=== PATIENT | male | born 1935 | race Caucasian/White ===

== ENCOUNTER 2017-01-11 12:37 | Emergency (ER) | payer MEDICARE, BC ==
[2017-01-11 13:20] VITALS: BP 154/68
[2017-01-11] MEDS ORDERED: HYDROcodone/ACETAMIN 5-325 MG* 1 TAB PO ONE (14:04)
--- NOTE | 2017-01-11 14:19 | UC ---
Abdominal Pain Male HPI - HPI Summary HPI Summary: This is an 81 yo male with h/o CAD and prior kidney stones who presents with complaints of R sided back pain and abdominal pain with hematuria. Denies associated fever. Nauseated with poor oral intake, no vomiting. No diarrhea, some constipation. He reports this pain is different somehow from his prior kidney stones. He is seen by Dr Marquez chronically. He was seen last week and had noted hematuria on UA. He reports that he had an XR and US in the office that was reportedly normal at that time. He did have some pain at the time of evaluation, but that has increased over the last week. He was unable to sleep last night despite use of oxycodone before bed last night. - History of Current Complaint Chief Complaint: UCGU Stated Complaint: LOWER BACK PAIN,BLOOD IN URINE - Allergies/Home Medications Allergies/Adverse Reactions: Allergies Allergy/AdvReac Type Severity Reaction Status Date / Time Bee Venom Allergy Severe hypotension Verified 10/21/16 14:12 Lidocaine Allergy Severe Increased Verified 10/21/16 14:12 pain PMH/Surg Hx/FS Hx/Imm Hx Cardiovascular History Of: Reports: Cardiac Disorders - MO , Hypertension - Surgical History Surgical History: Yes Surgery Procedure, Year, and Place: Angioplasty , knee surgery - Family History Known Family History: Positive: Hypertension - Social History Alcohol Use: None Substance Use Type: None Smoking Status (MU): Light Every Day Tobacco Smoker Review of Systems Constitutional: Fatigue Skin: Negative Eyes: Negative ENT: Negative Respiratory: Negative Cardiovascular: Negative Gastrointestinal: Abdominal Pain Genitourinary: Hematuria Motor: Negative Neurovascular: Negative Musculoskeletal: Negative Neurological: Negative Psychological: Negative All Other Systems Reviewed And Are Negative: Yes Physical Exam Triage Information Reviewed: Yes Completion Of Physical Exam Limited Due To: Patient age Appearance: Well-Appearing Vital Signs: Initial Vital Signs Temp 97.7 F 01/11/17 13:11 Pulse 78 01/11/17 13:11 Resp 18 01/11/17 13:11 BP 154/68 01/11/17 13:11 Pulse Ox 97 01/11/17 13:11 Vital Signs Reviewed: Yes Respiratory: Positive: Lungs clear, Normal breath sounds. Negative: Crackles, Rhonchi, Wheezing Cardiovascular: Positive: RRR, No Murmur Abdomen Description: Positive: Soft, CVA Tenderness (R), Other: - TTP R side of abdomen Psychological Exam: Normal Skin Exam: Normal Diagnostics - Laboratory Diagnostic Studies Completed/Ordered: UA - +blood, protein Abd Pain Male Course/Dx - Course Course Of Treatment: This is an 81 yo male with h/o CAD and HTN who presents with back pain, abdominal pain and hematuria. Suspect R ureteral stone. No evidence of associated infection. Patient reports pain is uncontrolled with oxycodone and has not been eating or drinking for several days. For these reasons, recommend transfer to the ER for CT of the abdomen and labs. Patient was driven by his daughter and is stable for transfer by private car - Differential Dx/Clinical Impression Differential Diagnosis/HQI/PQRI: Constipation, Diverticulitis, Ureteral Stone, Urinary Tract Infection Provider Diagnoses: 1. Abdominal pain. 2. Hematuria. 3. Suspected R ureteral stone - Physician Notification/Consults Discussed Patient Care With: Bre Fernandez PA-C Time Discussed With Above Provider: 14:15 - discussed transfer to ED Instructed by Provider To: Will See In ED Discharge - Discharge Plan Condition: Stable Disposition: OTHER Discharge Disposition Comment: Emergency dept Referrals: Rik Henriquez MD [Primary Care Provider] - Additional Instructions: PLEASE PROCEED TO THE EMERGENCY DEPARTMENT FOR FURTHER EVALUATION
== END 2017-01-11 14:20 | disposition short-term general hospital (02) ==
LOC: UCEAST 12:37
DX: R10.9 Unspecified abdominal pain (principal); R31.9 Hematuria, unspecified; Z87.442 Personal history of urinary calculi; I25.2 Old myocardial infarction; I10 Essential (primary) hypertension; F17.210 Nicotine dependence, cigarettes, uncomplicated; Z88.4 Allergy status to anesthetic agent
CPT/HCPCS: 81003; 99212; G0463

== ENCOUNTER 2017-01-11 14:35 | Emergency (ER) | payer MEDICARE, BC ==
[2017-01-11] MEDS ORDERED: NS 0.9% 1000 ML* 1,000 ML IV ONE (15:04)
--- NOTE | 2017-01-11 15:20 | ED ---
Abdominal Pain/Male - HPI Summary HPI Summary: 81M presents with abdominal and back pain for a day. He states that last night after eating her started to develop lower quadrant pain. He also states that he has back pain that goes across his lower back. He states that he has had this pain recurrently over the past week. He states that he has also had hematuria for the past week and is going to have a scope of his bladder on Friday by dr jerome. He has a history of kidney stones but states the pain is different from kidney stone pain. He admits to constipation. He also admits to occasionally nausea but denies any vomiting or diarrhea or fever. He denies any chest pain or SOB. He states that he had heart burn for a couple mins this morning that resolved. He was seen at urgent care and transferred here for a further work up. - History of Current Complaint Chief Complaint: EDAbdPain Stated Complaint: BLOOD IN URINE / FLANK PAIN Time Seen by Provider: 01/11/17 15:03 Pain Intensity: 5 - Allergies/Home Medications Allergies/Adverse Reactions: Allergies Allergy/AdvReac Type Severity Reaction Status Date / Time Bee Venom Allergy Severe hypotension Verified 01/11/17 14:40 Lidocaine Allergy Severe Increased Verified 01/11/17 14:40 pain PMH/Surg Hx/FS Hx/Imm Hx Cardiovascular History: Reports: Hx Hypertension - Surgical History Surgery Procedure, Year, and Place: Angioplasty , knee surgery Infectious Disease History: Yes Infectious Disease History: Denies: Traveled Outside the [place] in Last 30 Days - Family History Known Family History: Positive: Hypertension - Social History Alcohol Use: None Substance Use Type: Reports: None Smoking Status (MU): Light Every Day Tobacco Smoker Review of Systems Negative: Fever Negative: Chest Pain Negative: Shortness Of Breath Positive: Abdominal Pain, Nausea. Negative: Vomiting, Diarrhea Positive: flank pain, hematuria. Negative: dysuria All Other Systems Reviewed And Are Negative: Yes Physical Exam Triage Information Reviewed: Yes Vital Signs On Initial Exam: Initial Vitals Temp Pulse Resp BP Pulse Ox 97.7 F 69 16 138/59 97 01/11/17 14:40 01/11/17 14:40 01/11/17 14:40 01/11/17 14:40 01/11/17 14:40 Vital Signs Reviewed: Yes Appearance: Positive: Well-Appearing Skin: Positive: Warm, Dry Head/Face: Positive: Normal Head/Face Inspection Eyes: Positive: Normal, Conjunctiva Clear ENT: Positive: Normal ENT inspection, Pharynx normal, TMs normal Respiratory/Lung Sounds: Positive: Clear to Auscultation, Breath Sounds Present Cardiovascular: Positive: Normal, RRR Abdomen Description: Positive: Soft, Other: - mild tenderness in RLQ and LLQ, no rebound. Negative: CVA Tenderness (R), CVA Tenderness (L), Guarding Bowel Sounds: Positive: Present - Jeffrey Coma Scale Coma Scale Total: 15 Diagnostics - Vital Signs Vital Signs Temp Pulse Resp BP Pulse Ox 01/11/17 15:06 98.7 F 01/11/17 14:40 97.7 F 69 16 138/59 97 - Laboratory Result Diagrams: 01/11/17 15:20 01/11/17 15:20 Lab Statement: Any lab studies that have been ordered have been reviewed, and results considered in the medical decision making process. - CT ab CT Interpretation: Positive (See Comments) - IMPRESSION: 1. Cirrhotic liver morphology. Top size increased over the 2014 exam. 2. Distended gallbladder with suggestion of mild mural thickening. No conspicuous stones. Correlate with clinical assessment and consider RIGHT upper quadrant ultrasound for further assessment if deemed appropriate. 3. Small volume of ascites. 4. Negative for obstructive uropathy. Nonobstructing LEFT renal stones. 5. Diverticulosis of the colon without findings of diverticulitis. 6. 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 CT Interpretation Completed By: Radiologist - Ultrasound No standard instances Ultrasound Interpretation: Positive (See Comments) - IMPRESSION: 1. Cirrhotic liver morphology. No focal hepatic lesions visualized. 2. Gallbladder stones and sludge. Gallbladder wall thickening is nonspecific in setting of cirrhosis. Negative for pericholecystic fluid or sonographic Llanos's sign to strongly favor acute cholecystitis. Correlate with clinical assessment. Ultrasound Interpretation Completed By: Radiologist Re-Evaluation - Re-Evaluation First Eval Re-Evaluation Time: 16:00 Change: Improved Comment: patient with minimal pain currently Abdominal Pain Fem Course/Dx - Course Course Of Treatment: 81M presents with lower quadrant abdominal pain and back pain. sent from urgent care for possible kidney stone evalution. admits to constipation but denies any diarrhea, n/v. on exam no CVA tenderness, no rebound , tender in right and left lower quadrants. u/a at [facility] no UTI only hematuria which is going to be following up with dr jerome on friday for. did CT which showed possible gallbladder thickening. got u/s and does not appear to have any gallstones or acute cholecystitis. on exam neg llanos. went over results with patient and patient family. will give pain medication as pain does not appear to be cause by anything surgical. told to follow up with primary. patient understands and agrees with plan - Diagnoses Differential Diagnosis/HQI/PQRI: Constipation, Gall Bladder Disease, Renal Colic , Urinary Tract Infection Provider Diagnoses: Abdominal pain Discharge - Discharge Plan Condition: Good Disposition: HOME Prescriptions: HYDROcodone/ACETAMIN 5-325 MG* [[place] 5-325 TAB*] 1 tab PO Q6H PRN #12 tab MDD 4 PRN Reason: Pain Patient Education Materials: Abdominal Pain (ED) Referrals: Rik Henriquez MD [Primary Care Provider] - Additional Instructions: Follow up with primary within 3 days Keep appointment with urology on Friday Take Tylenol or ibuprofen every 6 hours, use narcotic for break through pain, inc fiber intake with narcotic use Return to ED if develop any new or worsening symptoms
[2017-01-11 15:36] LABS: Hematocrit 42 % (42-52); Hemoglobin 13.5 g/dl (14.0-18.0); Mean Corpuscular HGB Conc 32 g/dl (31-36); Mean Corpuscular Hemoglobin 28 pg (27-31); Mean Corpuscular Volume 88 fL (80-94); Mean Platelet Volume 9 um3 (7.4-10.4); Red Blood Count 4.76 10^6/ul (4.0-5.4); Red Cell Distribution Width 17 % (10.5-15); White Blood Count 12.9 10^3/ul (3.5-10.8)
[2017-01-11 15:52] LABS: Albumin 3.7 g/dL (3.2-5.2); BUN/Creatinine Ratio 17.9 (8-20); Calcium 9.3 mg/dL (8.6-10.3); EGFR African American 122.2 (>60); EGFR Non-African American 95.1 (>60); Globulin 3.5 g/dL (2-4); Potassium 4.1 mmol/L (3.5-5.0); Total Bilirubin 2.2 mg/dL (0.2-1.0); Total Protein 7.2 g/dL (6.4-8.9)
[2017-01-11] MEDS ORDERED: Ketorolac INJ* 30 MG/ML 1 ML VIAL IV PUSH ONE (16:33)
--- NOTE | 2017-01-11 16:55 | RAD ---
INDICATION: RIGHT lower quadrant and back pain. Hematuria. COMPARISON: May 03, 2014 CT. TECHNIQUE: Multidetector CT images were obtained from the lung bases to the ischial tuberosities. Evaluation of the viscera is limited without IV contrast. Multiplanar reformation. REPORT: Minimal dependent basilar atelectasis. Coronary artery calcifications. Nodular surface contour of the liver. Small focus of parenchymal calcification at the RIGHT posterior hepatic segment. No decubitus hepatic mass within limits of noncontrast CT. Distended gallbladder with suggestion of gallbladder wall thickening. Negative for biliary dilatation. Moderately atrophic pancreas without suspicious finding. Top normal size spleen. Negative for CT abnormality of the upper GI, small bowel, or infra cecal appendix. Mild colonic diverticulosis without findings of diverticulitis. Small volume of perihepatic and pelvic ascites. Negative for free air or significant hernias. Normal size RIGHT adrenal gland with linear calcification. Unremarkable LEFT adrenal glands. Arterial calcification at the RIGHT kidney. No compelling RIGHT kidney calyceal stones or hydronephrosis. Unremarkable RIGHT ureter. 0.7 cm LEFT midpole and 0.7 cm LEFT lower pole calyceal stones. Negative for LEFT hydronephrosis. 4 cm parapelvic cyst mid pole LEFT kidney. Smaller cortical cysts of the LEFT kidney. Unremarkable LEFT ureter. Unremarkable partially distended urinary bladder. Prominent prostate. Symmetric seminal vesicles. Upper normal 0.9 cm short axis celiac axis lymph node without change. Similar unchanged lymph nodes at the nandini hepatis. Negative for lymphadenopathy. Atherosclerotic plaque of normal diameter abdominal aorta. 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 Large burden of calcific plaque at the bilateral renal artery origins. Negative for suspicious focal osseous lesions. Diffuse degenerative arthropathy of the spine with chronic multilevel vertebral body ankylosis at the lower thoracic spine. IMPRESSION: 1. Cirrhotic liver morphology. Top size increased over the 2014 exam. 2. Distended gallbladder with suggestion of mild mural thickening. No conspicuous stones. Correlate with clinical assessment and consider RIGHT upper quadrant ultrasound for further assessment if deemed appropriate. 3. Small volume of ascites. 4. Negative for obstructive uropathy. Nonobstructing LEFT renal stones. 5. Diverticulosis of the colon without findings of diverticulitis. 6. 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
--- NOTE | 2017-01-11 18:42 | RAD ---
Indication: Distended thick-walled gallbladder on CT. Comparison: CT of the same date. Technique: RIGHT upper quadrant ultrasound. Report: Appropriate direction flow documented in the portal and hepatic veins.13.5 cm cephalocaudal liver demonstrates a nodular surface contour and course heterogeneous echogenicity echotexture. No focal hepatic lesions or biliary dilatation. 5.6 mm common bile duct. Distended gallbladder is remarkable for dependent stones and sludge. 4.1 mm gallbladder wall. No pericholecystic fluid visualized. Negative for sonographic Llanos's sign. The pancreatic tail is partially obscured due to bowel gas with the visualized pancreas unremarkable. The pancreatic duct measures 1.5 mm within normal range. No ascites visualized. Unremarkable 10.4 x 4.5 x 4.5 cm RIGHT kidney. IMPRESSION: 1. Cirrhotic liver morphology. No focal hepatic lesions visualized. 2. Gallbladder stones and sludge. Gallbladder wall thickening is nonspecific in setting of cirrhosis. Negative for pericholecystic fluid or sonographic Llanos's sign to strongly favor acute cholecystitis. Correlate with clinical assessment.
[2017-01-11] MEDS ORDERED: HYDROcodone/ACETAMIN 5-325 MG* 1 TAB PO ONE (19:12)
[2017-01-11 20:19] VITALS: BP 129/61
== END 2017-01-11 20:16 | disposition home or self-care (01) ==
LOC: ED 14:35
DX: R10.31 Right lower quadrant pain (principal); I10 Essential (primary) hypertension; K57.90 Diverticulosis of intestine, part unspecified, without perforation or abscess without bleeding; R31.9 Hematuria, unspecified; Z87.442 Personal history of urinary calculi; F17.210 Nicotine dependence, cigarettes, uncomplicated; Z88.4 Allergy status to anesthetic agent
CPT/HCPCS: 36415; 74176; 76705; 80053; 83690; 85025; 86141; 96360; 96374; 99283; J1885

== ENCOUNTER 2017-01-16 10:32 | Inpatient (IN) | payer MEDICARE, BC ==
[2017-01-16] MEDS ORDERED: NS 0.9% 1000 ML* 2,000 ML IV ONE (11:59)
[2017-01-16] MEDS ORDERED: Ondansetron INJ* 2 MG/ML VIAL IV ONE (11:59)
[2017-01-16] MEDS ORDERED: Morphine INJ* 4 MG/ML 1 ML SYRINGE IV ONE (11:59)
--- NOTE | 2017-01-16 12:29 | RAD ---
INDICATION: Pneumonia COMPARISON: None TECHNIQUE: AP seated and lateral views were obtained. FINDINGS: Bones/Soft Tissues: There are no acute bony findings. Cardiomediastinal: The cardiomediastinal silhouette is normal. Lungs: There are no infiltrates. Pleura: There are no pleural effusions. Other: None IMPRESSION: NO ACTIVE DISEASE.
[2017-01-16 12:43] LABS: Hematocrit 39 % (42-52); Hemoglobin 12.9 g/dl (14.0-18.0); Mean Corpuscular HGB Conc 33 g/dl (31-36); Mean Corpuscular Hemoglobin 29 pg (27-31); Mean Corpuscular Volume 87 fL (80-94); Mean Platelet Volume 11 um3 (7.4-10.4); Red Blood Count 4.52 10^6/ul (4.0-5.4); Red Cell Distribution Width 17 % (10.5-15); White Blood Count 10.3 10^3/ul (3.5-10.8)
[2017-01-16 12:55] LABS: Albumin 2.9 g/dL (3.2-5.2); C Reactive Protein 293.7 mg/L (< 5.00); EGFR African American 44.3 (>60); EGFR Non-African American 34.4 (>60); Globulin 3.6 g/dL (2-4); Magnesium 2.5 mg/dL (1.9-2.7); Potassium 3.6 mmol/L (3.5-5.0); Total Bilirubin 2.7 mg/dL (0.2-1.0); Total Protein 6.5 g/dL (6.4-8.9)
[2017-01-16 13:03] LABS: Troponin I 0.52 ng/mL (<0.04)
[2017-01-16] MEDS ORDERED: Acetaminophen TAB* 325 MG PO PRN (13:36)
[2017-01-16] MEDS ORDERED: Ondansetron INJ* 2 MG/ML VIAL IV PRN (13:36)
[2017-01-16] MEDS ORDERED: Iodixanol* (CONTRAST) 320 MG/ML 100 ML SDV IV ONE (14:04)
[2017-01-16] MEDS ORDERED: NS 0.9% 1000 ML* 1,000 ML IV SCH (14:15)
[2017-01-16] MEDS ORDERED: NS 0.9% 1000 ML* 1,000 ML IV ONE (14:56)
--- NOTE | 2017-01-16 14:57 | RAD ---
INDICATION: Right-sided abdominal pain and distention. COMPARISON: Comparison is made with a prior CT of the abdomen and pelvis from January 11, 2017 and a prior right upper quadrant ultrasound from January 11, 2017. TECHNIQUE: A CT scan of the abdomen and pelvis was performed with intravenous and oral contrast following intravenous injection of 82 ml of Visipaque 320 nonionic contrast. Contiguous axial sections were obtained from the lung bases through the symphysis pubis. Images were reconstructed in the coronal and sagittal planes. FINDINGS: There is mild dependent atelectasis in the right lower lobe. No pleural effusion is present. The liver is heterogeneous in density with a nodular contour. There is volume loss in the posterior segment of the right hepatic lobe. These findings are consistent with cirrhosis. No significant focal abnormality is appreciated. There is a filling defect in the right branch of the main portal vein suspicious for a thrombus. The gallbladder is distended. The gallbladder wall is thickened suggesting the possibility of acute cholecystitis. Recommend a right upper quadrant ultrasound for further evaluation. No intra or extra hepatic ductal distention is seen. The spleen is moderately enlarged and unchanged from the prior exam. The pancreas appears atrophic. The right adrenal gland is small with coarse calcification possibly from prior hemorrhage. The left adrenal gland appears to be within normal limits. The kidneys are slightly small in size. There are several left renal cysts present measuring up to 4.1 cm in size. No hydronephrosis is seen. There are several calculi in the mid and lower portion of the left kidney measuring up to 1.0 cm in size. There is delayed excretion of contrast consistent with renal insufficiency. The prostate gland is enlarged measuring 6.0 cm in transverse dimension. The abdominal aorta is mildly ectatic with moderate calcific and soft plaque present. No significant enlarged retroperitoneal lymph nodes are seen. There are mildly prominent lymph nodes in the right cardiophrenic angle measuring up to 0.9 cm in size which are unchanged. The stomach, small and large bowel appear nondistended. The appendix is not well visualized. There is no evidence for diverticulitis or colitis. No free intraperitoneal air is seen. There is a small to moderate amount of free intraperitoneal fluid present within the abdomen and pelvis. No significant focal osseous abnormality is seen. The results of this examination were discussed with the referring clinician. IMPRESSION: 1. DISTENDED GALLBLADDER WITH THICKENED WALL SUGGESTING THE POSSIBILITY OF ACUTE CHOLECYSTITIS. RECOMMEND A RIGHT UPPER QUADRANT ULTRASOUND. 2. FINDINGS CONSISTENT WITH CIRRHOSIS. IN ADDITION THERE IS A FILLING DEFECT IN THE RIGHT PORTAL VEIN BRANCH SUSPICIOUS FOR THROMBUS. 3. MODERATE SPLENOMEGALY. 4. ASCITES. 5. NONOBSTRUCTING LEFT RENAL CALCULI AND FINDINGS SUGGESTIVE OF RENAL INSUFFICIENCY. 6. PROSTATIC HYPERTROPHY.
[2017-01-16] MEDS ORDERED: Piperac/Tazob 3.375 gm in NS* 3.375 GM/100 ML BAG IVPB ONE (15:00)
--- NOTE | 2017-01-16 15:07 | ED ---
Adis Mariee Billy, scribed for Eugene Robles MD on 01/16/17 at 1125 . Abdominal Pain/Male - HPI Summary HPI Summary: Patient is an 81 year-old male coming to [facility] with constant, progressive, diffuse abdominal pain starting approximately 2 weeks ago. The pain is worst on the RUQ and radiates to the LUQ and to the back. He reports feeling bloated and decreased appetite. He also reports diarrhea but denies any vomiting. He has tea -colored urine. He states, however, that his diarrhea appeared black 5 days ago. He was seen in the ED on 01/11/17 for similar symptoms; prior records reviewed. He has been taking NSAIDs for his pain with little improvement. He has been applying heating pads with mild improvement. Nothing makes his symptoms any worse. Denies taking any bloodthinners other than ASA daily. - History of Current Complaint Chief Complaint: EDAbdPain Stated Complaint: ABD PAIN Time Seen by Provider: 01/16/17 11:13 Hx Obtained From: Patient Onset/Duration: Gradual Onset, Lasting Weeks, Still Present Timing: Constant Severity Initially: Moderate Severity Currently: Moderate Location: Diffuse Radiates: Yes Radiates to: Back Aggravating Factor(s): Nothing Alleviating Factor(s): Other: - heating pads Associated Signs And Symptoms: Positive: Blood in Stool, Urinary Symptoms - tea- colored urine, Decreased Appetite, Diarrhea. Negative: Vomiting - Allergies/Home Medications Allergies/Adverse Reactions: Allergies Allergy/AdvReac Type Severity Reaction Status Date / Time Bee Venom Allergy Severe hypotension Verified 01/11/17 14:40 Lidocaine Allergy Severe Increased Verified 01/11/17 14:40 pain Home Medications: Home Medications Nitroglycerin TAB 0.4 MG* 0.4 mg SL Q5M PRN 01/16/17 [History Confirmed 01/16/17 ] Simvastatin TAB(NF) [Zocor(NF)] 10 mg PO QPM 01/16/17 [History Confirmed ] PMH/Surg Hx/FS Hx/Imm Hx Cardiovascular History: Reports: Hx Hypertension, Hx Myocardial Infarction History: Reports: Hx Kidney Stones - Surgical History Surgery Procedure, Year, and Place: Angioplasty , knee surgery Infectious Disease History: No Infectious Disease History: Denies: Traveled Outside the [place] in Last 30 Days - Family History Known Family History: Positive: Hypertension Family History: Gilbert's Syndrome - Social History Alcohol Use: None Substance Use Type: Reports: None Smoking Status (MU): Light Every Day Tobacco Smoker Review of Systems Negative: Fever Positive: Abdominal Pain, Diarrhea - appeared black, Other - decreased appetite , bloating. Negative: Vomiting Positive: see HPI All Other Systems Reviewed And Are Negative: Yes Physical Exam - Summary Physical Exam Summary: The patient is well-nourished in no acute distress and in no acute pain. The skin is warm and dry and skin color reflects adequate perfusion. Decreased skin turgor. HEENT: The head is normocephalic and atraumatic. The pupils are equal and reactive. The conjunctivae are clear and without drainage. Sclera are anicteric. Nares are patent and without drainage. Mouth reveals dry mucous membranes and the throat is without erythema and exudate. The external ears are intact. The ear canals are patent and without drainage. The tympanic membranes are intact. Neck is supple with full range of motion and non-tender. There are no carotid bruits. There is no neck vein distension. Respiratory: Chest is non-tender. Crackles in the right lung bases. Cardiovascular: Heart is regular rate and rhythm. There is no murmur or rub auscultated. There is no peripheral edema and pulses are symmetrical and equal. Femoral pulses intact. Abdomen: Percussion tenderness to the right-side, worst in the RUQ and right- middle regions. Tenderness with palpation to the LUQ and RLQ. Distended. There are normal bowel sounds heard in all four quadrants and there is no organomegaly palpated. Rectal exam: Stool appears brown; not black or red. Musculoskeletal: There is no back pain noted. Extremities are non-tender with full range of motion. There is 2 second capillary refill. There is no peripheral edema or calf tenderness elicited. Neurological: Patient is alert and oriented to person, place and time. The patient has symmetrical motor strength in all four extremities. Psychiatric: The patient has an appropriate affect and does not exhibit any anxiety or depression. Triage Information Reviewed: Yes Vital Signs On Initial Exam: Initial Vitals Temp Pulse Resp BP Pulse Ox 97.9 F 80 18 104/67 95 01/16/17 10:41 01/16/17 10:41 01/16/17 10:41 01/16/17 10:41 01/16/17 10:41 Vital Signs Reviewed: Yes Diagnostics - Vital Signs Vital Signs Temp Pulse Resp BP Pulse Ox 01/16/17 10:41 97.9 F 80 18 104/67 95 - Laboratory Lab Results: Lab Results 01/16/17 01/16/17 01/16/17 Range/Units 10:50 10:50 10:50 WBC 10.3 (3.5-10.8) 10^3/ul RBC 4.52 (4.0-5.4) 10^6/ul Hgb 12.9 L (14.0-18.0) g/dl Hct 39 L (42-52) % MCV 87 (80-94) fL MCH 29 (27-31) pg MCHC 33 (31-36) g/dl RDW 17 H (10.5-15) % Plt Count 179 (150-450) 10^3/ul MPV 11 H (7.4-10.4) um3 Neut % (Auto) 79.5 (38-83) % Lymph % (Auto) 8.4 L (25-47) % [place] % (Auto) 11.7 H (1-9) % Eos % (Auto) 0.2 (0-6) % Baso % (Auto) 0.2 (0-2) % Absolute Neuts (auto) 8.2 H (1.5-7.7) 10^3/ul Absolute Lymphs (auto) 0.9 L (1.0-4.8) 10^3/ul Absolute Monos (auto) 1.2 H (0-0.8) 10^3/ul Absolute Eos (auto) 0 (0-0.6) 10^3/ul Absolute Basos (auto) 0 (0-0.2) 10^3/ul Absolute Nucleated RBC 0.02 10^3/ul Nucleated RBC % 0.2 INR (Anticoag Therapy) (0.89-1.11) APTT (26.0-36.3) seconds Sodium 134 (133-145) mmol/L Potassium 3.6 (3.5-5.0) mmol/L Chloride 104 (101-111) mmol/L Carbon Dioxide 22 (22-32) mmol/L Anion Gap 8 (2-11) mmol/L BUN 77 H (6-24) mg/dL Creatinine 1.88 H (0.67-1.17) mg/dL Est GFR ( Amer) 44.3 (>60) Est GFR (Non-Af Amer) 34.4 (>60) BUN/Creatinine Ratio 41.0 H (8-20) Glucose 139 H (70-100) mg/dL Lactic Acid 1.8 (0.5-2.0) mmol/L Calcium 9.0 (8.6-10.3) mg/dL Magnesium 2.5 (1.9-2.7) mg/dL Total Bilirubin 2.70 H (0.2-1.0) mg/dL AST 81 H (13-39) U/L ALT 46 (7-52) U/L Alkaline Phosphatase 348 H (34-104) U/L Total Creatine Kinase 30 (10-223) U/L Troponin I 0.52 H* (<0.04) ng/mL C-Reactive Protein 293.70 H (< 5.00) mg/L B-Natriuretic Peptide ( - 100) pg/mL Total Protein 6.5 (6.4-8.9) g/dL Albumin 2.9 L (3.2-5.2) g/dL Globulin 3.6 (2-4) g/dL Albumin/Globulin Ratio 0.8 L (1-3) Amylase 57 (29-103) U/L Lipase 174 H (11.0-82.0) U/L 01/16/17 01/16/17 Range/Units 10:50 10:50 WBC (3.5-10.8) 10^3/ul RBC (4.0-5.4) 10^6/ul Hgb (14.0-18.0) g/dl Hct (42-52) % MCV (80-94) fL MCH (27-31) pg MCHC (31-36) g/dl RDW (10.5-15) % Plt Count (150-450) 10^3/ul MPV (7.4-10.4) um3 Neut % (Auto) (38-83) % Lymph % (Auto) (25-47) % [place] % (Auto) (1-9) % Eos % (Auto) (0-6) % Baso % (Auto) (0-2) % Absolute Neuts (auto) (1.5-7.7) 10^3/ul Absolute Lymphs (auto) (1.0-4.8) 10^3/ul Absolute Monos (auto) (0-0.8) 10^3/ul Absolute Eos (auto) (0-0.6) 10^3/ul Absolute Basos (auto) (0-0.2) 10^3/ul Absolute Nucleated RBC 10^3/ul Nucleated RBC % INR (Anticoag Therapy) 1.20 H (0.89-1.11) APTT 30.0 (26.0-36.3) seconds Sodium (133-145) mmol/L Potassium (3.5-5.0) mmol/L Chloride (101-111) mmol/L Carbon Dioxide (22-32) mmol/L Anion Gap (2-11) mmol/L BUN (6-24) mg/dL Creatinine (0.67-1.17) mg/dL Est GFR ( Amer) (>60) Est GFR (Non-Af Amer) (>60) BUN/Creatinine Ratio (8-20) Glucose (70-100) mg/dL Lactic Acid (0.5-2.0) mmol/L Calcium (8.6-10.3) mg/dL Magnesium (1.9-2.7) mg/dL Total Bilirubin (0.2-1.0) mg/dL AST (13-39) U/L ALT (7-52) U/L Alkaline Phosphatase (34-104) U/L Total Creatine Kinase (10-223) U/L Troponin I (<0.04) ng/mL C-Reactive Protein (< 5.00) mg/L B-Natriuretic Peptide 238 H ( - 100) pg/mL Total Protein (6.4-8.9) g/dL Albumin (3.2-5.2) g/dL Globulin (2-4) g/dL Albumin/Globulin Ratio (1-3) Amylase (29-103) U/L Lipase (11.0-82.0) U/L Result Diagrams: 01/16/17 10:50 01/16/17 10:50 Lab Statement: Any lab studies that have been ordered have been reviewed, and results considered in the medical decision making process. - Radiology CXR Xray Interpretation: No Acute Changes Radiology Interpretation Completed By: Radiologist - CT abd/pel w CT Interpretation Completed By: Radiologist - 1. DISTENDED GALLBLADDER WITH THICKENED WALL SUGGESTING THE POSSIBILITY OF ACUTE CHOLECYSTITIS. RECOMMEND A RIGHT UPPER QUADRANT ULTRASOUND. 2. FINDINGS CONSISTENT WITH CIRRHOSIS. IN ADDITION THERE IS A FILLING DEFECT IN THE RIGHT PORTAL VEIN BRANCH SUSPICIOUS FOR THROMBUS. 3. MODERATE SPLENOMEGALY. 4. ASCITES. 5. NONOBSTRUCTING LEFT RENAL CALCULI AND FINDINGS SUGGESTIVE OF RENAL INSUFFICIENCY. 6. PROSTATIC HYPERTROPHY. - EKG 1320 EKG Interpretation: NSR 70 bpm, left axis deviation, LBBB, no STEMI. Abdominal Pain Fem Course/Dx - Course Assessment/Plan: 81 year-old male coming to [facility] for evaluation of diffuse abdominal pain. CXR shows no acute disease. EKG shows NSR, LAD, LBBB, no STEMI. CT abd/pel findings reviewed, see radiologist's report. Case was discussed with hospitalist services, who accepted the patient for admission. - Diagnoses Differential Diagnosis/HQI/PQRI: AMI, Appendicitis, Bowel Obstruction, Gall Bladder Disease, Ischemic Bowel, Pancreatitis, Other - renal failure, Provider Diagnoses: Dehydration, Elevated troponin, Abdominal pain, ARF, Acute cholecystitis - Provider Notifications Discussed Care Of Patient With: To Arellano NP (hospitalist) @ 1315: accepts admission. Dr. Parikh (radiology) @ 9507: CT abd/pel findings discussed. Discharge - Discharge Plan Condition: Stable Disposition: ADMITTED TO [facility] documentation as recorded by the Adis casiano Billy accurately reflects the service I personally performed and the decisions made by me, Eugene Robles MD.
[2017-01-16 16:13] LABS: Urine Bacteria Absent (Absent); Urine Bilirubin Negative (Negative); Urine Glucose Negative (Negative); Urine Nitrite Negative (Negative)
[2017-01-16 16:19] LABS: Urine Random Sodium < 18 mmol/L
[2017-01-16] MEDS: Heparin VIAL(*) 5000 UNITS/ML VIAL (FIVE THOUSAND) SUBCUT SCH ×2 (16:35→22:29)
--- NOTE | 2017-01-16 17:00 | CONSULT ---
Subjective Date of Service: 01/17/17 Interval History: Admission Date: 01/16/17 Provider: To Arellano HOME CARE MANAGER/Dr. Phillips/Hospitalist PRIMARY CARE PROVIDER: Dr. Henriquez. Date of consult: 01/16/2017 CHIEF COMPLAINT: 1. Weakness. 2. Abdominal pain. Reason for consult: Elevated troponin level HISTORY OF PRESENT ILLNESS: Mr. 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 He had had intermittent RUQ last 3 weeks, as well as fatigued and recently diarrhea. He denies any of his anginal chest pain (at the time he thought was gerd) similar to the 1994 pain and has not had any of that angina since 1994. He is usually very active around the house, clearing snow, etc. well over 4 mets of activity without any symptoms. He denies any dyspnea, edema, orthopnea, palpitations or recent syncope. He was admitted and found with acute cholecystitis, cirrhosis (no prior diagnosis) and portal vein thrombosis. EKG showed NSR, old inferior wall FL unchanged from 04/2012. TTE showed an LVEF of 45% with a scarred inferior/inferolateral wall PAST MEDICAL HISTORY: Significant for: 1. Hypertension. 2. Hyperlipidemia. 3. CAD. PAST SURGICAL HISTORY: He has had a heart catheterization. He has had knee arthroscopy. ALLERGIES: LIDOCAINE and bees. FAMILY HISTORY: His mother had a history of cancer and father had a history of aneurysm. SOCIAL HISTORY: He is half a pack a day smoker. He has been smoking since the age of 16. He does not drink alcohol. Surrogate decision maker is his . Medications Active Medications: Acetaminophen (Tylenol Tab*) 650 mg PO Q4H PRN PRN Reason: FEVER/PAIN Aspirin (Aspirin Ec Low Dose*) 81 mg PO DAILY [facility] Heparin Sodium (Porcine) (Heparin Vial(*)) 5,000 units SUBCUT Q8HR [facility] Last Admin: 01/16/17 16:35 Dose: Not Given Piperacillin Sod/Tazobactam Sod (Zosyn 3.375 Gm In Ns Premix*) 3.375 gm in 100 mls @ 25 mls/hr IVPB Q8H [facility] Sodium Chloride (Ns 0.9% 1000 Ml*) 1,000 mls @ 100 mls/hr IV PER RATE [facility] Metoprolol Tartrate (Lopressor Tab*) 25 mg PO BID [facility] Morphine Sulfate (Morphine Inj (Syringe)*) 2 mg IV Q4H PRN PRN Reason: PAIN - MILD Ondansetron HCl (Zofran Inj*) 4 mg IV Q6H PRN PRN Reason: NAUSEA Home Medications: Aspirin EC Low Dose* [Ecotrin EC Low Dose*] 81 mg PO DAILY 10/21/16 [History Confirmed 01/16/17] Carbamide Peroxide 6.5% OTIC* [DEBROX 6.5% Otic*] 5 drop BOTH EARS BID #1 bottle 10/21/16 [Rx Confirmed 01/16/17] Lisinopril TAB* [Prinivil TAB*] 20 mg PO DAILY 10/21/16 [History Confirmed 01/16] Metoprolol Succinate XL TAB* [Toprol XL TAB*] 50 mg PO DAILY 10/21/16 [History Confirmed 01/16/17] HYDROcodone/ACETAMIN 5-325 MG* [[place] 5-325 TAB*] 1 tab PO Q6H PRN #12 tab MDD 4 01/11/17 [Rx Confirmed 01/16/17] Nitroglycerin TAB 0.4 MG* 0.4 mg SL Q5M PRN 01/16/17 [History Confirmed 01/16/17 ] Simvastatin TAB(NF) [Zocor(NF)] 10 mg PO QPM 01/16/17 [History Confirmed ] Review of Systems - Measurements Intake and Output: Intake and Output Last 24 Hours 01/14/17 01/15/17 01/16/17 01/17/17 06:59 06:59 06:59 06:59 Intake Total 1999 Balance 1999 Weight 147 lb Intake: IV Fluids 1999 - Review of Systems Constitutional Symptoms: Positive: Weakness, Fatigue Negative: Weight Gain, Weight Loss, Night Sweats, Unexplained Falls, Other Dermatology: Negative: Rash, Skin Lesions Eyes: Negative: Change in Vision, Double Vision, Eye Pain Thyroid: Negative: Thyroid Nodule, Cold Intolerance, Heat Intolerance, Sweatiness, Tremor, Frequent Defecation, Constipation, Weight Loss, Weight Gain Pulmonary: Negative: Cough, Sputum, Hemoptysis, Shortness of Breath, COPD Cardiology: Negative: Normal, Chest Pain, Shortness of Breath, Palpitations, Swelling of Ankles, Peripheral Vascular Dis, Edema, Faintness, Syncope, Claudication, Paroxysmal Nocturnal Dyspnea, Orthopnea Gastroenterology: Positive: Abdominal Pain, Anorexia, Diarrhea, Change in Bowel Habits Negative: Nausea, Vomiting, Indigestion, Difficulty Swallowing, Heartburn, Constipation, Haematemesis, Melena Genital - Urinary: Negative: Dysuria, Hematuria, Polyuria, Nocturia Musculoskeletal: Negative: Joint Pain, Joint Stiffness, Arthritis, Osteoporosis, Low Back Pain , Sciatica Endocrinology: Negative: Family Hx Endocrine Disorders, Obesity, Diabetes, Hyperglycemia, Hypoglycemia, Polydipsia, Polyuria, Gynecomastia Hematologic/Lymphatic: Positive: Use of Antiplatelet Drugs Negative: Anemia, Easy Brusing, Hx Leukemia, Hx Lymphoma, Use of Anticoagulant Neurology: Negative: Headaches, Migraines, Diplopia, Dizziness, Change in Balancing, Change in Coordination, Change in Memory, Change in Speech, Change in Walking Psychiatry: Negative: Sexual Dysfunction, Weight Change, Guilt Feelings, Tearfulness, Unusual Fatigue Allergic/Immunologic: Negative: Hx Environmental Allergies, Hx Seasonal Allergies, Hx HIV Review of Systems Statement: All other review of systems negative, unless stated above. Objective Vital Signs: Temp Pulse Resp BP Pulse Ox 97.8 F 72 13 80/43 93 01/16/17 16:00 01/16/17 16:00 01/16/17 16:00 01/16/17 16:00 01/16/17 16:00 Appearance: pleasant, appears ill but not toxic Ears/Nose/Mouth/Throat: Clear Oropharnyx, Mucous Membranes Moist Neck: NL Appearance and Movements; NL JVP Respiratory: Symmetrical Chest Expansion and Respiratory Effort, Clear to Auscultation Cardiovascular: NL Sounds; No Murmurs; No JVD, RRR, No Edema Abdominal: - - no rigidity Extremities: No Edema Skin: No Rash or Ulcers Neurological: Alert and Oriented x 3 Laboratory Results: 01/17/17 05:00 01/17/17 05:00 INR (Anticoag Therapy) 1.20 (0.89-1.11) H 01/16/17 10:50 APTT 30.0 seconds (26.0-36.3) 01/16/17 10:50 Total Bilirubin 2.70 mg/dL (0.2-1.0) H 01/17/17 05:00 Direct Bilirubin 1.60 mg/dL (0.03-0.18) H 01/17/17 05:00 Indirect Bilirubin 1.1 mg/dL (0.3-1.0) H 01/17/17 05:00 AST 87 U/L (13-39) H 01/17/17 05:00 ALT 46 U/L (7-52) 01/17/17 05:00 Alkaline Phosphatase 350 U/L (34-104) H 01/17/17 05:00 B-Natriuretic Peptide 238 pg/mL (-100) H 01/16/17 10:50 Total Protein 5.6 g/dL (6.4-8.9) L 01/17/17 05:00 Albumin 2.4 g/dL (3.2-5.2) L 01/17/17 05:00 Globulin 3.2 g/dL (2-4) 01/17/17 05:00 Albumin/Globulin Ratio 0.8 (1-3) L 01/17/17 05:00 01/16/17 01/16/17 01/16/17 10:50 16:09 19:21 Troponin I 0.52 H* 0.41 H* 0.55 H* Assessment/Plan Mr. Atwood is an 81 year old man with a history of FL s/p POBA 1994, ongoing tobacco use, HTN, dyslipidemia admitted with suspected cholecystitis and renal failure. There is evidence of demand related myocardial ischemia but no evidence of a type 1 plaque disruption FL. Elevated troponin likely from known underlying CAD, septal wall hypertrophy, renal failure and acute medical illness. No history of a malignant arrhythmia, severe valve disease, decompensated HF or a recent type 1 FL. Has > 4 mets of functional capacity at baseline without symptoms. LVEF 45%. - There are no absolute cardiac contraindications to proceeding with any intermediate risk necessary treatment (i.e. endoscopy/ERCP/cholecystectomy, etc) . to treat patients acute medical illness. We did discuss that given his age, presentation status and medical comorbidities there is some risk of cardiovascular complications related to these procedures and he accepts this risk in favor of the expected benefit any procedures would provide. - Would start statin when ok from a GI standpoint - Continue aspirin 81 mg PO daily, if aspirin needs held for procedures would restart PEARL as soon as bleeding risk minimized - Agree with changing long-acting toprol 50 mg PO daily to 25 mg PO BID, continue beta-rossy - Hold AceI until renal failure resolved - Patient counseled on smoking cessation to reduce risk of future cardiovascular events and . - Angiogram report from 1994 requested - Continue to trend troponins and EKG's, will re-evaluate - Would defer need for anticoagulation of portal vein thrombosis to GI Thank you for allowing me to participate in the cardiovascular care of this patient. Please do not hesitate to contact me with questions or concerns.
--- NOTE | 2017-01-16 17:03 | RAD ---
INDICATION: Right upper quadrant pain. COMPARISON: Comparison is made with a prior right upper quadrant ultrasound from January 11, [address] of the abdomen and pelvis from January 16, 2017. TECHNIQUE: Multiple real-time images of the right upper quadrant were obtained. FINDINGS: There are multiple gallstones and biliary sludge present. The gallbladder wall is thickened measuring up to 6 mm in thickness which is an indeterminate finding in this patient with ascites. No positive sonographic Llanos sign was noted. No intra or extrahepatic ductal distention is present. The common bile duct measured 0.6 cm in diameter. The liver is heterogeneous with a nodular contour consistent with cirrhosis. No significant focal abnormality is seen. There is thrombus filling and the majority of the portal vein. The hepatic veins appear patent. The pancreas is partially obscured by overlying bowel gas. There is ascites present around the liver. The right kidney is normal in size without evidence for hydronephrosis. IMPRESSION: 1. CHOLELITHIASIS AND THICKENED GALLBLADDER WALL SIMILAR TO THE PRIOR STUDY. THE GALLBLADDER WALL THICKENING IS LIKELY DUE TO THE ASCITES ALTHOUGH ACUTE CHOLECYSTITIS CANNOT BE EXCLUDED. RECOMMEND CLINICAL CORRELATION. IN ADDITION A HEPATOBILIARY SCAN MAY BE HELPFUL IN FURTHER EVALUATION. 2. FINDINGS CONSISTENT WITH CIRRHOSIS. 3. PORTAL VEIN THROMBOSIS. 4. ASCITES.
--- NOTE | 2017-01-16 17:15 | HP ---
ATTENDING PHYSICIAN ADDENDUM NOW INCLUDED ON THIS REPORT HISTORY AND PHYSICAL: DATE OF ADMISSION: 01/16/17 PRIMARY CARE PROVIDER: Dr. Henriquez. ATTENDING PHYSICIAN WHILE IN THE HOSPITAL: Debbie Phillips MD * (report dictated by To Arellano NP) CHIEF COMPLAINT: 1. Weakness. 2. Abdominal pain. HISTORY OF PRESENT ILLNESS: Mr. Atwood is an 81-year-old male patient and he has a history of hypertension, hyperlipidemia. He comes in today with complaints of not feeling well. He also carries a history of coronary artery disease. He states that about 3 weeks ago, he had a fish sandwich and with fries. Shortly thereafter eating this meal, he started developing right upper quadrant abdominal discomfort and since then he has really not had any appetite whatsoever, he has not been feeling very well. He states he has not had any chills or fevers. He has been feeling weak, tired and drained out. He has not had any vomiting. He got to the point that on the , the symptoms were not getting any better, so he came to the ER. He was sent home from here. Unfortunately, the discomfort in his abdomen did not get any better. He was taking hydrocodone. He started developing diarrhea over the last 5 days. He was going at least 4 to 5 times a day. He says that he has been having no appetite. He states that if he tries to eat or drink anything, he gets nauseous. He just does not feel good. He denied any chest pain. He states prior to this, he could get up and down the stairs, go out the driveway and he felt fine. He never had chest pain with this but in the last few weeks, he has noticed a steady decline as has the family. He says that he has been having some diarrhea. He says he is not feeling short of breath. He denied having any fevers and he says he was concerned because the discomfort was not getting any better, so he came into the hospital. He was evaluated by Dr. Robles. It was noted that he had multiple abnormalities and the hospitalist service was asked to evaluate for admission. PAST MEDICAL HISTORY: Significant for: 1. Hypertension. 2. Hyperlipidemia. 3. CAD. PAST SURGICAL HISTORY: He has had a heart catheterization. He has had knee arthroscopy. HOME MEDICATIONS: Include: 1. Zocor 10 mg p.o. daily. 2. Nitro 0.4 sublingual q.5 minutes x3 p.r.n. chest pain. 3. Toprol-XL 15 mg p.o. daily. 4. Lisinopril 20 mg a day. 5. Lowell 1 tablet p.o. every 6 hours as needed. 6. Debrox 5 drops both ears b.i.d. 7. Aspirin 81 mg daily. ALLERGIES: LIDOCAINE and bees. FAMILY HISTORY: His mother had a history of cancer and father had a history of aneurysm. SOCIAL HISTORY: He is half a pack a day smoker. He has been smoking since the age of 16. He does not drink alcohol. Surrogate decision maker is his . REVIEW OF SYSTEMS: There is no documented fever. He denied having any significant weight change. There was no double vision. There was no ear discharge. He denied having any rhinorrhea. There is no sore throat. No thyroid enlargement. He denied having any chest pain. There is no orthopnea. No nocturnal dyspnea. There was abdominal pain per my HPI. He denied having any chest pain. There is abdominal discomfort. There was an episode of nausea. There is no vomiting. No dysuria. No frequency. There was diarrhea. No loss of consciousness. No pruritus and no skin ulcerations. Review of 14 systems completed, all others were negative. PHYSICAL EXAMINATION GENERAL: Mr. Atwood is an 81-year-old male patient who appears well nourished, well developed and does not appear to be in any acute distress. VITAL SIGNS: Blood pressure 94/60 with a pulse of 72, respirations 18, O2 sat 94%, temperature 97.9. HEENT: Head is atraumatic, normocephalic. Eyes: EOMs intact. Sclerae anicteric, not pale. Throat: Oral mucosa appears to be moist. No oropharyngeal erythema. NECK: Supple. LUNGS: Clear to auscultation bilaterally. No wheezes, rales or rhonchi. HEART: Heart sounds S1, S2. Regular rate and rhythm. No murmurs, rubs, or gallops. ABDOMEN: Mildly distended. He was tender in right upper quadrant. Bowel sounds present. EXTREMITIES: Pulses 2+ throughout. He is able to move all 4 extremities with 5 /5 strength. NEUROLOGIC: The patient is awake, alert. He is oriented x3. His box gluer are equal. Tongue midline. No gross focal deficits. SKIN: Grossly intact. LABORATORY DATA/IMAGING STUDIES: Labs today reveal WBC of 10.3, RBC 4.52, hemoglobin 12.9, hematocrit 39, platelet count 179. His INR is 1.20, PTT is 30.0. Sodium is 134, potassium 3.6, chloride 104, bicarb 22, BUN 77, creatinine 1.88, glucose 139. Lactate 1.8, calcium 9, magnesium 2.5. Total bilirubin 2.7. AST 81, ALT 46, alkaline phosphatase is 348. His CK was 30. His troponin was 0.52. CRP of 293. Albumin of 2.9 and lipase of 174. He had a chest x-ray obtained today which revealed no active disease. He had an EKG obtained today which showed a normal sinus rhythm with a rate of [address] elevations or T-wave inversions. He had abdominal pelvis CT scan done on the , which showed cirrhotic liver morphology top size increased over the 2013 exam, distended gallbladder with suggestion of mild mural thickening. No copious stones. Correlate with clinical assessment. 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 Gallbladder ultrasound later that day showed cirrhotic liver morphology. No focal hepatic lesions, gallbladder sludge and stones. Gallbladder wall thickening is nonspecific in the setting of cirrhosis. Negative for pericholecystic fluid or sonographic Llanos sign to strongly favor acute cholecystitis. Correlate with clinical assessment. Old medical records were reviewed. ASSESSMENT AND PLAN: Mr. Atwood is an 81-year-old male patient coming into the ER today with complaints of abdominal discomfort. On evaluation today, he was found to have multiple metabolic abnormalities. Hospitalist service was asked to evaluate for admission. He will be admitted under inpatient status for : 1. Abdominal discomfort. I am certain that he might have an obstructing gallbladder. He may have choledocholithiasis, possible early signs of cholangitis. CRP is 293. He is tender on exam. I did touch base with GI and also touch base with Surgery who will be evaluating the patient. I think he deserves a couple of liters of fluids, normal saline after the fluids at 100 an hour. In addition to this, he also needs to be put on some Zosyn renally dosed of course and I am going to keep him n.p.o. until he was evaluated by GI and Surgery. I think we need to get his kidney function better before we can consider MRCP but he may need an ERCP at some point. 2. Acute renal failure. This is multifactorial. It is probably prerenal secondary to him being ill and has not been had a good intake over the last 3 weeks. He has also been on DAT inhibitor. I am going to go ahead and send off a FeNa. I am going to place a Vences. We will hydrate him and we will continue to follow this closely and continue to monitor. 3. Elevated troponins, it is probably demand ischemia. He is not having any chest pain. EKG looks stable. We will be getting an echo. We will cycle his troponins. I am going to get a cardiology consult as well. 4. Hypertension. His blood pressures are right around the 90s right now, again probably from dehydration and being possibly infected, so I am going to go ahead and hold his blood pressure meds with the exception of the beta- rossy. I have put hold parameters on this. 5. Hyperlipidemia. We will continue statin. 6. Coronary artery disease. Continue the aspirin and statin and beta-rossy with hold parameters. 7. DVT prophylaxis. Heparin subcu. 8. Code status. Full code. 9. Fluids, electrolytes, nutrition. He is n.p.o. TIME SPENT: Time spent on the admission was 80 minutes; greater than half the time spent [id number] with the patient obtaining my history and physical, the other half the time spent going over the plan of care with the patient and implementing the plan of care. I discussed the plan of care with my attending, Dr. Phillips, she is in agreement. TO ARELLANO NP ADDENDUM: DATE OF ADMISSION: 01/16/17 Mr. Atwood is an 81-year-old male with history of hypertension and coronary artery disease who has had problems with right upper quadrant abdominal pain for several days. He presents to the ED today and his CT of the abdomen shows possibility of acute cholecystitis. His troponin is 0.5. He is going to be admitted to the intensive care unit for further monitoring and treatment of his acute cholecystitis. Surgery as well as Gastroenterology as well as Cardiology is going to be consulted. For further details of the patient's presentation and plan, please see history and physical dictated by To Arellano, on 01/16/17 , with which I agree. DEBBIE PHILLIPS MD CC: Dr. Henriquez; Dr. Bailey, Dr. Grey; Dr. Wan * [id number]/[facility] #: [id number]/CPS #: [id number]
--- NOTE | 2017-01-16 19:01 | HP ---
HISTORY AND PHYSICAL:* ADDENDUM: DATE OF ADMISSION: 01/16/17 Mr. Atwood is an 81-year-old male with history of hypertension and coronary artery disease who has had problems with right upper quadrant abdominal pain for several days. He presents to the ED today and his CT of the abdomen shows possibility of acute cholecystitis. His troponin is 0.5. He is going to be admitted to the intensive care unit for further monitoring and treatment of his acute cholecystitis. Surgery as well as Gastroenterology as well as Cardiology is going to be consulted. For further details of the patient's presentation and plan, please see history and physical dictated by To Arellano, on 01/16/17 , with which I agree. [id number]/[facility] #: [id number] MTDD
[2017-01-16] MEDS: Piperac/Tazob 3.375 gm in NS* 3.375 GM/100 ML BAG IVPB SCH (20:37)
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
--- NOTE | 2017-01-16 23:23 | CONS ---
GASTROENTEROLOGY CONSULT: DATE: 01/16/17 REFERRING PHYSICIANS: Rik Henriquez, Debbie Phillips. REASON FOR CONSULT: Right upper quadrant pain and abnormal LFTs, which started 3 weeks ago after fish dinner. 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 He has had a very long and a relapsing history of renal stones requiring ESWL. Three weeks go, he had a fish dinner, and shortly thereafter recalls there was some bloating on the right side. Since then, he has had recurring dyspepsia. It came to a head and was more severe, so he came to the emergency room . His LFTs were off a little bit mostly alk phos. The first study from imaging was a CT showing some cirrhosis and a thick gallbladder wall and a common duct of 5.6 mm. The second study ultrasound showed stones and sludge. He seemed stable and was sent home. Pain increased and he came back to the emergency room today. Last night, he had had some diarrhea. There had not been any fever or vomiting. Today, in the ER, his bilirubin was further up at 2.7, ALT 46, AST 81, and lipase 174. His creatinine had gone from 0.7 to 1.9 and troponin 0.52. He was not complaining of chest pain. Repeat ultrasound today showed an unchanged common duct at 6 mm. Now, in the ICU, he is comfortable, but is receiving pain meds and piperacillin/ tazobactam. PAST MEDICAL HISTORY: 1. Coronary disease status post ND and stents many years ago. 2. History of renal stones - status post a half dozen or more interventions by the urology office and several ESWLs 3. Hyperlipidemia. 4. Tobacco abuse - half a pack a day now (began at age 16) 5. Cirrhotic liver on CT scan - review of his ALTs both in the old database and new showed no elevation of ALT, bilirubin, or alkaline phosphatase. MEDICATIONS: At home, simvastatin 10, metoprolol XL 50, lisinopril 20, aspirin 81, and hydrocodone/acetaminophen p.r.n. SOCIAL HISTORY: He is and has three children, all living in the area, a son and two daughters. They joke that that is stressful for him. REVIEW OF SYSTEMS: No history of syncope, overt palpitations, seizures, hemoptysis, or TB. He denies any liver problems. Further questions were not asked with the entire family in the room. No history of recent falls. PHYSICAL EXAM: He is interviewed with his three children and in the room. HEENT exam was unremarkable. He is not overtly icteric. He has no adenopathy. His lungs are clear. Heart sounds are regular. The abdomen is mildly rounded, symmetric, and there is voluntary guarding throughout and a little bit of tenderness on the right side which he says goes through to the back. Extremities show no edema. DIAGNOSTIC STUDIES: Echocardiogram - result pending. CT scan - reviewed in Radiology and the common duct does not have any filling defects - (fair clarity). There is a filling defect in the right portal vein. The liver has a cirrhotic morphology. There is a little bit of ascites. IMPRESSION: This 81-year-old man with apparently cirrhosis discovered yesterday (that has not been evaluated as of yet), now presents with what appears to be calculous cholecystitis. There is no dilation of his common duct (constant at 6 mm between 2 US 5 days apart) and his ALT is not impressively elevated and bili unchanged so, it seems unlikely there is a common duct stone as part of this picture. The alk phos is likely from CBD pressure from edema. The hope is that antibiotics will stabilize and reduce swelling and the situation may resolve. It is unclear what role the PV thrombosis is playing but it is probably a consequence rather than a cause of his pain. He will be receiving antithrombotics due to his cardiac problems and they should be helpful for this tendency also though with cirrhosis portal HTN bleeding is a risk. He is clearly going to be high risk for any hepatobiliary surgery with ongoing smoking and troponin elevation 20 yrs after initial CAD presentation Workup of the cirrhosis will have to be put off well down the road but with the normal ALTs no active treatment is anticipated. [id number]/[facility] #: [id number] [facility]
[2017-01-17] MEDS: Piperac/Tazob 3.375 gm in NS* 3.375 GM/100 ML BAG IVPB SCH ×3 (03:31→21:39)
[2017-01-17 05:24] LABS: Hematocrit 39 % (42-52); Hemoglobin 12.5 g/dl (14.0-18.0); Mean Corpuscular HGB Conc 33 g/dl (31-36); Mean Corpuscular Hemoglobin 28 pg (27-31); Mean Corpuscular Volume 86 fL (80-94); Mean Platelet Volume 10 um3 (7.4-10.4); Red Blood Count 4.46 10^6/ul (4.0-5.4); Red Cell Distribution Width 18 % (10.5-15); White Blood Count 8.8 10^3/ul (3.5-10.8)
[2017-01-17 05:30] LABS: Add Diff/Slide Review? Slide Review Added; Comments Flag Yes
[2017-01-17 05:33] LABS: Albumin 2.4 g/dL (3.2-5.2); Direct Bilirubin 1.6 mg/dL (0.03-0.18); Globulin 3.2 g/dL (2-4); Indirect Bilirubin 1.1 mg/dL (0.3-1.0); Total Bilirubin 2.7 mg/dL (0.2-1.0); Total Protein 5.6 g/dL (6.4-8.9)
[2017-01-17] MEDS: Heparin VIAL(*) 5000 UNITS/ML VIAL (FIVE THOUSAND) SUBCUT SCH ×3 (06:06→21:45)
[2017-01-17 06:37] LABS: Immature Granulocytes 14 % (0-9); Macrocytosis 1+; Microcytosis 1+; Neutrophil % 69 % (38-83); Reactive Lymph % 2 % (0-6)
[2017-01-17 07:11] LABS: Troponin I 1.66 ng/mL (<0.04)
[2017-01-17] MEDS ORDERED: Metoprolol Tartrate TAB* 25 MG PO SCH (09:00)
[2017-01-17] MEDS ORDERED: Metoprolol Succinate XL TAB* 50 MG PO SCH (09:00)
[2017-01-17] MEDS: Metoprolol Tartrate TAB* 25 MG PO SCH ×2 (09:55→21:43)
[2017-01-17] MEDS: Aspirin EC Low Dose* 81 MG TAB.EC PO SCH (09:55)
[2017-01-17 10:10] LABS: BUN/Creatinine Ratio 44.7 (8-20); Calcium 8.4 mg/dL (8.6-10.3); EGFR African American 72.3 (>60); EGFR Non-African American 56.2 (>60); Potassium 3.7 mmol/L (3.5-5.0)
[2017-01-17] MEDS ORDERED: NS 0.9% 1000 ML* 1,000 ML IV SCH (11:45)
--- NOTE | 2017-01-17 12:03 | PN ---
Progress Note - Progress Note Note: CRITICAL CARE MEDICINE Date: 01/17/17 Time: 1100 SUBJECTIVE: Patient seen and examined. PHYSICAL EXAM: Vital Signs: Reviewed. Hr 70s. SBP ~90. Neurologic: sitting up in chair. nonfocal. comm well. HEENT: pupils equal. Sclera mild icteric. Trachea midline. Cardiovascular: S1 S2 Respiratory: Abdomen: Soft, mild tenderness, distended, No r/g/r. Extremities: Warm. Access: piv LABS: Reviewed. IMAGING: Reviewed. MEDICATIONS: Reviewed. ASSESSMENT: 81 M Acute cholesytitis Cirrhosis Splenomegaly PV thrombosis Acute renal failure NSTEMI PLAN: Neurologic: stable. pain control. Cardiovascular: Perfusing. bp soft but stable. ivf for today. ECG with changes this am and already had echo and cardiology to follow up. no cp. on bb if bp allows. on asa. add statin. Respiratory: stable. ra Gastrointestinal: gi and surgery f/u appreciated. no acute interventions but need f/u. abx. ivf. clears. Renal/Metabolic: improved. ivf. f/u. can evelyn benitez. Infectious Disease: on zosyn with good coverage. Hematology: stable. hsq Endocrine: question if may be steroid deficit but can hold off at present. Musculoskeletal: oob. Psych/Social: pt expressed understanding. Supportive and preventative care as ordered. SUP: ppi, clears VTE prophylaxis: heparin Disposition: ICU Code Status: to floor with tele Critical Care Time: 30min Quan Helms DO
[2017-01-17] MEDS: Morphine INJ* 2 MG/ML 1 ML SYRINGE IV PRN (13:18)
--- NOTE | 2017-01-17 13:27 | SURGPN ---
Subjective - Introduction -: Reports occasional RUQ abdominal pain, relieved with pain meds. Pain is not any worse than it has been. Denies nausea or vomiting, but still with no appetite. Denies fever or chills. - Medications -: Active Medications Generic Name Dose Route Start Last Admin Trade Name Freq PRN Reason Stop Dose Admin Acetaminophen 650 mg 01/16/17 13:36 Tylenol Tab* PO Q4H PRN FEVER/PAIN Aspirin 81 mg 01/17/17 09:00 01/17/17 09:55 Aspirin Ec Low Dose* PO 81 mg DAILY [facility] Administration Atorvastatin Calcium 40 mg 01/17/17 17:00 Lipitor* PO 1700 [facility] Heparin Sodium (Porcine) 5,000 units 01/16/17 14:00 01/17/17 13:18 Heparin Vial(*) SUBCUT 5,000 units Q8HR [facility] Administration Piperacillin Sod/Tazobactam Sod 3.375 gm in 100 mls @ 25 mls/hr 01/16/17 20: 00 01/17/17 11:37 Zosyn 3.375 Gm In Ns Premix* IVPB 25 mls/hr Q8H [facility] Administration Sodium Chloride 1,000 mls @ 75 mls/hr 01/17/17 11:45 Ns 0.9% 1000 Ml* IV PER RATE [facility] Metoprolol Tartrate 25 mg 01/17/17 09:00 01/17/17 09:55 Lopressor Tab* PO Not Given BID [facility] Morphine Sulfate 2 mg 01/16/17 13:36 01/17/17 13:18 Morphine Inj (Syringe)* IV 2 mg Q4H PRN Administration PAIN - MILD Ondansetron HCl 4 mg 01/16/17 13:36 Zofran Inj* IV Q6H PRN NAUSEA Objective - Objective -: Awake and alert, sitting on chair, trying to have some lunch. Appears comfortable, in NAD. - Intake and Output -: Intake & Output 01/15/17 01/16/17 01/17/17 01/18/17 06:59 06:59 06:59 06:59 Intake Total 3837 300 Output Total 1150 250 Balance 2687 50 Weight 150 lb 2.157 oz Intake: IV Fluids 3837 NS (0.9%) 1837 Oral 300 Output: Vences 1150 250 Surgical Physical Exam - Comments -: Vitals reviewed, afebrile. Abdomen distended, mildly tender more to RUQ and epigastric areas. No guarding or rigidity. No rebound tenderness. LFTs unchanged from last night. Assessment and Plan - Assessment -: An 81 y/o male with acute cholecystitis and elevated LFTs, NSTEMI, ARF and CAD. - Plan Additional Comments: Supportive measures at this point. Still very high risk for surgery. Discussed with family and they understand the inherent risks.
[2017-01-17] MEDS: Atorvastatin* 40 MG TAB PO SCH (18:02)
--- NOTE | 2017-01-17 19:08 | PN ---
Subjective Date of Service: 01/17/17 Interval History: f/u type 2 KS no chest pain has RUQ pain troponin up to 1.6, has new ischemic downsloping ST depression leads V2-V3 on todays EKG no arrhythmias Medications Active Medications: Acetaminophen (Tylenol Tab*) 650 mg PO Q4H PRN PRN Reason: FEVER/PAIN Aspirin (Aspirin Ec Low Dose*) 81 mg PO DAILY [facility] Last Admin: 01/17/17 09:55 Dose: 81 mg Atorvastatin Calcium (Lipitor*) 40 mg PO 1700 [facility] Last Admin: 01/17/17 18:02 Dose: 40 mg Heparin Sodium (Porcine) (Heparin Vial(*)) 5,000 units SUBCUT Q8HR [facility] Last Admin: 01/17/17 13:18 Dose: 5,000 units Piperacillin Sod/Tazobactam Sod (Zosyn 3.375 Gm In Ns Premix*) 3.375 gm in 100 mls @ 25 mls/hr IVPB Q8H [facility] Last Admin: 01/17/17 11:37 Dose: 25 mls/hr Sodium Chloride (Ns 0.9% 1000 Ml*) 1,000 mls @ 75 mls/hr IV PER RATE [facility] Last Admin: 01/17/17 16:41 Dose: 75 mls/hr Metoprolol Tartrate (Lopressor Tab*) 25 mg PO BID [facility] Last Admin: 01/17/17 09:55 Dose: Not Given Morphine Sulfate (Morphine Inj (Syringe)*) 2 mg IV Q4H PRN PRN Reason: PAIN - MILD Last Admin: 01/17/17 13:18 Dose: 2 mg Ondansetron HCl (Zofran Inj*) 4 mg IV Q6H PRN PRN Reason: NAUSEA Objective Vital Signs: Temp Pulse Resp BP Pulse Ox 97.3 F 72 20 105/52 99 01/17/17 16:37 01/17/17 16:37 01/17/17 18:00 01/17/17 16:37 01/17/17 16:37 Appearance: pleasant, appears ill but not toxic Ears/Nose/Mouth/Throat: Clear Oropharnyx, Mucous Membranes Moist Neck: NL Appearance and Movements; NL JVP Respiratory: Symmetrical Chest Expansion and Respiratory Effort, Clear to Auscultation Cardiovascular: NL Sounds; No Murmurs; No JVD, RRR, No Edema Abdominal: - - no rigidity Extremities: No Edema Skin: No Rash or Ulcers Neurological: Alert and Oriented x 3 Laboratory Results: 01/17/17 05:00 01/17/17 05:00 INR (Anticoag Therapy) 1.20 (0.89-1.11) H 01/16/17 10:50 APTT 30.0 seconds (26.0-36.3) 01/16/17 10:50 Total Bilirubin 2.70 mg/dL (0.2-1.0) H 01/17/17 05:00 Direct Bilirubin 1.60 mg/dL (0.03-0.18) H 01/17/17 05:00 Indirect Bilirubin 1.1 mg/dL (0.3-1.0) H 01/17/17 05:00 AST 87 U/L (13-39) H 01/17/17 05:00 ALT 46 U/L (7-52) 01/17/17 05:00 Alkaline Phosphatase 350 U/L (34-104) H 01/17/17 05:00 B-Natriuretic Peptide 238 pg/mL (-100) H 01/16/17 10:50 Total Protein 5.6 g/dL (6.4-8.9) L 01/17/17 05:00 Albumin 2.4 g/dL (3.2-5.2) L 01/17/17 05:00 Globulin 3.2 g/dL (2-4) 01/17/17 05:00 Albumin/Globulin Ratio 0.8 (1-3) L 01/17/17 05:00 01/16/17 01/16/17 01/17/17 16:09 19:21 05:00 Troponin I 0.41 H* 0.55 H* 1.66 H* Assessment/Plan Mr. Atwood is an 81 year old man with a history of KS s/p POBA 1994, ongoing tobacco use, HTN, dyslipidemia admitted with suspected cholecystitis, newly diagnosed cirrhosis and renal failure and a supply/demand related type 2 KS No history of a malignant arrhythmia, severe valve disease, decompensated HF or a recent type 1 KS. Has > 4 mets of functional capacity at baseline without symptoms. LVEF 45%. - Continue aspirin, statin and beta-rossy - Repeat AM troponin and EKG - Continue telemetry monitoring - Given new AM EKG changes 01/17/2017 and increase in troponin with improving renal function, if patient were to undergo an invasive procedure would perform a stress test prior to further risk stratify from a cardiac standpoint. Thank you for allowing me to participate in the cardiovascular care of this patient. Please do not hesitate to contact me with questions or concerns.
[2017-01-18] MEDS: Piperac/Tazob 3.375 gm in NS* 3.375 GM/100 ML BAG IVPB SCH ×3 (04:36→19:38)
[2017-01-18] MEDS: Heparin VIAL(*) 5000 UNITS/ML VIAL (FIVE THOUSAND) SUBCUT SCH (05:18)
[2017-01-18 05:59] LABS: Hematocrit 37 % (42-52); Hemoglobin 11.9 g/dl (14.0-18.0); Mean Corpuscular HGB Conc 33 g/dl (31-36); Mean Corpuscular Hemoglobin 28 pg (27-31); Mean Corpuscular Volume 86 fL (80-94); Mean Platelet Volume 10 um3 (7.4-10.4); Red Blood Count 4.24 10^6/ul (4.0-5.4); Red Cell Distribution Width 18 % (10.5-15); White Blood Count 9.2 10^3/ul (3.5-10.8)
[2017-01-18 06:20] LABS: Albumin 2.3 g/dL (3.2-5.2); BUN/Creatinine Ratio 46.9 (8-20); Calcium 8.6 mg/dL (8.6-10.3); EGFR African American 93.9 (>60); Globulin 3.1 g/dL (2-4); Magnesium 2.5 mg/dL (1.9-2.7); Phosphorus 2.8 mg/dL (2.5-5.0); Potassium 3.6 mmol/L (3.5-5.0); Total Bilirubin 2.1 mg/dL (0.2-1.0); Total Protein 5.4 g/dL (6.4-8.9)
[2017-01-18 06:22] LABS: Troponin I 7.5 ng/mL (<0.04)
[2017-01-18] MEDS: Morphine INJ* 2 MG/ML 1 ML SYRINGE IV PRN ×2 (06:56→13:08)
[2017-01-18] MEDS ORDERED: Heparin VIAL(*) 5000 UNITS/ML VIAL (FIVE THOUSAND) IV SCH (07:00)
--- NOTE | 2017-01-18 07:41 | PN ---
Subjective Date of Service: 01/18/17 Interval History: Some abdominal pain, had IV MS 0656 today. Walked to BR. No chest pain, SOB. Objective Active Medications: Acetaminophen (Tylenol Tab*) 650 mg PO Q4H PRN PRN Reason: FEVER/PAIN Aspirin (Aspirin Ec Low Dose*) 81 mg PO DAILY [facility] Last Admin: 01/17/17 09:55 Dose: 81 mg Atorvastatin Calcium (Lipitor*) 40 mg PO 1700 [facility] Last Admin: 01/17/17 18:02 Dose: 40 mg Heparin Sodium (Porcine) (Heparin Vial(*)) 0 units IV .PER PROTOCOL [facility] PRN Reason: Protocol Piperacillin Sod/Tazobactam Sod (Zosyn 3.375 Gm In Ns Premix*) 3.375 gm in 100 mls @ 25 mls/hr IVPB Q8H [facility] Last Admin: 01/18/17 04:36 Dose: 25 mls/hr Sodium Chloride (Ns 0.9% 1000 Ml*) 1,000 mls @ 75 mls/hr IV PER RATE [facility] Last Admin: 01/17/17 16:41 Dose: 75 mls/hr Heparin Sodium/Dextrose (Heparin Drip 25,000 Units(*)) 25,000 units in 500 mls @ 0 mls/hr IV .NO INITIAL BOLUS [facility]; As Directed PRN Reason: Protocol Metoprolol Tartrate (Lopressor Tab*) 25 mg PO BID [facility] Last Admin: 01/17/17 21:43 Dose: 25 mg Morphine Sulfate (Morphine Inj (Syringe)*) 2 mg IV Q4H PRN PRN Reason: PAIN - MILD Last Admin: 01/18/17 06:56 Dose: 2 mg Ondansetron HCl (Zofran Inj*) 4 mg IV Q6H PRN PRN Reason: NAUSEA Vital Signs 01/17/17 01/17/17 01/17/17 07:59 08:00 08:30 Temperature 97.8 F Pulse Rate 77 69 Respiratory 14 14 Rate Blood Pressure 94/59 90/61 (mmHg) O2 Sat by Pulse 94 94 Oximetry 01/17/17 01/17/17 01/17/17 09:00 09:30 10:00 Temperature Pulse Rate 81 Respiratory 14 17 Rate Blood Pressure 102/57 93/50 (mmHg) O2 Sat by Pulse 95 Oximetry 01/17/17 01/17/17 01/17/17 10:03 10:30 11:00 Temperature Pulse Rate 73 80 Respiratory 12 15 19 Rate Blood Pressure 93/50 103/49 (mmHg) O2 Sat by Pulse 95 96 Oximetry 01/17/17 01/17/17 01/17/17 11:30 13:00 13:18 Temperature 97.5 F Pulse Rate 71 Respiratory 14 20 Rate Blood Pressure 92/54 (mmHg) O2 Sat by Pulse 96 Oximetry 01/17/17 01/17/17 01/17/17 14:09 16:37 18:00 Temperature 97.3 F Pulse Rate 72 Respiratory 16 18 20 Rate Blood Pressure 105/52 (mmHg) O2 Sat by Pulse 99 Oximetry 01/17/17 01/17/17 01/18/17 20:00 20:04 00:16 Temperature 98.4 F 98.3 F Pulse Rate 80 81 Respiratory 18 17 16 Rate Blood Pressure 109/57 108/58 (mmHg) O2 Sat by Pulse 95 95 Oximetry 01/18/17 01/18/17 04:03 06:56 Temperature 99.3 F Pulse Rate 76 Respiratory 16 16 Rate Blood Pressure 100/58 (mmHg) O2 Sat by Pulse 95 Oximetry Oxygen Devices in Use Now: Nasal Cannula Appearance: Alert, supine in bed. In good spirits. Looks comfortable. Eyes: No Scleral Icterus Ears/Nose/Mouth/Throat: Clear Oropharnyx, Mucous Membranes Moist Neck: NL Appearance and Movements; NL JVP, No Thyroid Enlargement, Masses Respiratory: Symmetrical Chest Expansion and Respiratory Effort, Clear to Auscultation, Clear to Percussion Cardiovascular: NL Sounds; No Murmurs; No JVD, RRR, No Edema, - Abdominal: No Hepatosplenomegaly, - - mild upper abd tenderness. Nl BS. Extremities: No Edema, No Clubbing, Cyanosis, - Skin: No Rash or Ulcers, No Nodules or Sclerosis, - Neurological: Alert and Oriented x 3, NL Sensation Result Diagrams: 01/18/17 05:48 01/18/17 05:48 Additional Lab and Data: Lab Results 01/16/17 01/16/17 01/16/17 Range/Units 10:50 10:50 10:50 WBC 10.3 (3.5-10.8) 10^3/ul RBC 4.52 (4.0-5.4) 10^6/ul Hgb 12.9 L (14.0-18.0) g/dl Hct 39 L (42-52) % MCV 87 (80-94) fL MCH 29 (27-31) pg MCHC 33 (31-36) g/dl RDW 17 H (10.5-15) % Plt Count 179 (150-450) 10^3/ul MPV 11 H (7.4-10.4) um3 Neut % (Auto) 79.5 (38-83) % Lymph % (Auto) 8.4 L (25-47) % Metcalfe % (Auto) 11.7 H (1-9) % Eos % (Auto) 0.2 (0-6) % Baso % (Auto) 0.2 (0-2) % Absolute Neuts (auto) 8.2 H (1.5-7.7) 10^3/ul Absolute Lymphs (auto) 0.9 L (1.0-4.8) 10^3/ul Absolute Monos (auto) 1.2 H (0-0.8) 10^3/ul Absolute Eos (auto) 0 (0-0.6) 10^3/ul Absolute Basos (auto) 0 (0-0.2) 10^3/ul Absolute Nucleated RBC 0.02 10^3/ul Nucleated RBC % 0.2 INR (Anticoag Therapy) (0.89-1.11) APTT (26.0-36.3) seconds Sodium 134 (133-145) mmol/L Potassium 3.6 (3.5-5.0) mmol/L Chloride 104 (101-111) mmol/L Carbon Dioxide 22 (22-32) mmol/L Anion Gap 8 (2-11) mmol/L BUN 77 H (6-24) mg/dL Creatinine 1.88 H (0.67-1.17) mg/dL Est GFR ( Amer) 44.3 (>60) Est GFR (Non-Af Amer) 34.4 (>60) BUN/Creatinine Ratio 41.0 H (8-20) Glucose 139 H (70-100) mg/dL Lactic Acid 1.8 (0.5-2.0) mmol/L Calcium 9.0 (8.6-10.3) mg/dL Magnesium 2.5 (1.9-2.7) mg/dL Total Bilirubin 2.70 H (0.2-1.0) mg/dL AST 81 H (13-39) U/L ALT 46 (7-52) U/L Alkaline Phosphatase 348 H (34-104) U/L Total Creatine Kinase 30 (10-223) U/L Troponin I 0.52 H* (<0.04) ng/mL C-Reactive Protein 293.70 H (< 5.00) mg/L B-Natriuretic Peptide ( - 100) pg/mL Total Protein 6.5 (6.4-8.9) g/dL Albumin 2.9 L (3.2-5.2) g/dL Globulin 3.6 (2-4) g/dL Albumin/Globulin Ratio 0.8 L (1-3) Amylase 57 (29-103) U/L Lipase 174 H (11.0-82.0) U/L 01/16/17 01/16/17 Range/Units 10:50 10:50 WBC (3.5-10.8) 10^3/ul RBC (4.0-5.4) 10^6/ul Hgb (14.0-18.0) g/dl Hct (42-52) % MCV (80-94) fL MCH (27-31) pg MCHC (31-36) g/dl RDW (10.5-15) % Plt Count (150-450) 10^3/ul MPV (7.4-10.4) um3 Neut % (Auto) (38-83) % Lymph % (Auto) (25-47) % Metcalfe % (Auto) (1-9) % Eos % (Auto) (0-6) % Baso % (Auto) (0-2) % Absolute Neuts (auto) (1.5-7.7) 10^3/ul Absolute Lymphs (auto) (1.0-4.8) 10^3/ul Absolute Monos (auto) (0-0.8) 10^3/ul Absolute Eos (auto) (0-0.6) 10^3/ul Absolute Basos (auto) (0-0.2) 10^3/ul Absolute Nucleated RBC 10^3/ul Nucleated RBC % INR (Anticoag Therapy) 1.20 H (0.89-1.11) APTT 30.0 (26.0-36.3) seconds Sodium (133-145) mmol/L Potassium (3.5-5.0) mmol/L Chloride (101-111) mmol/L Carbon Dioxide (22-32) mmol/L Anion Gap (2-11) mmol/L BUN (6-24) mg/dL Creatinine (0.67-1.17) mg/dL Est GFR ( Amer) (>60) Est GFR (Non-Af Amer) (>60) BUN/Creatinine Ratio (8-20) Glucose (70-100) mg/dL Lactic Acid (0.5-2.0) mmol/L Calcium (8.6-10.3) mg/dL Magnesium (1.9-2.7) mg/dL Total Bilirubin (0.2-1.0) mg/dL AST (13-39) U/L ALT (7-52) U/L Alkaline Phosphatase (34-104) U/L Total Creatine Kinase (10-223) U/L Troponin I (<0.04) ng/mL C-Reactive Protein (< 5.00) mg/L B-Natriuretic Peptide 238 H ( - 100) pg/mL Total Protein (6.4-8.9) g/dL Albumin (3.2-5.2) g/dL Globulin (2-4) g/dL Albumin/Globulin Ratio (1-3) Amylase (29-103) U/L Lipase (11.0-82.0) U/L Microbiology and Other Data: Microbiology 01/16/17 17:20 Aerobic Blood Culture - Preliminary Blood Venous No Growth Day 1 Anaerobic Blood Culture - Preliminary No Growth Day 1 01/17/17 12:50 Stool Gross Appearance - Final Stool C. difficile DNA Amplification - Final 027 Presumptive NEGATIVE Toxigenic C.diff NEGATIVE Stool Lactoferrin - Final 01/17/17 12:50 Stool Gross Appearance - Final Stool Rotavirus Antigen - Final Negative Rotavirus 01/16/17 15:01 Urine Culture - Final Urine No Growth (<1,000 CFU/mL) 01/16/17 15:01 Nasal Screen MRSA (PCR)(BALDEMAR) - Final Nasal Mrsa Negative Assess/Plan/Problems-Billing Assessment: - Patient Problems (1) Acute cholecystitis Current Visit: Yes Status: Acute Code(s): K81.0 - ACUTE CHOLECYSTITIS SNOMED Code(s): 43839894 Comment: Continue pip/mane. When pain subsides would advance diet. High risk for cholecystectomy. (2) ACS (acute coronary syndrome) Current Visit: Yes Status: Acute Code(s): I24.9 - ACUTE ISCHEMIC HEART DISEASE, UNSPECIFIED SNOMED Code(s): 879092696 Comment: Heparin started 3/18 AM. Plan 48 hrs. Known ischemic cardiomyopathy , iLBBB. Add clopidogrel. Discussed with Dr. Grey. This will preclude surgery in the near future. (3) Cirrhosis Current Visit: Yes Status: Acute Comment: Unkown etiology. Hep panel, repeat INR 01/19. (4) JACQUE (acute kidney injury) Current Visit: Yes Status: Acute Code(s): N17.9 - ACUTE KIDNEY FAILURE, UNSPECIFIED SNOMED Code(s): 68870418 Comment: Resolved. (5) Tobacco abuse Current Visit: Yes Status: Acute Code(s): Z72.0 - TOBACCO USE SNOMED Code( s): 489292144 Comment: Pt advised to quit smoking and avoid second hand smoke. (6) Portal vein thrombosis Current Visit: Yes Status: Acute Code(s): I81 - PORTAL VEIN THROMBOSIS SNOMED Code(s): 76393852 Comment: I will discuss with Dr. Bailey.
[2017-01-18] MEDS: NS 0.9% 1000 ML* 1,000 ML IV SCH (07:47)
[2017-01-18] MEDS ORDERED: Clopidogrel TAB* 75 MG PO SCH (08:00)
[2017-01-18] MEDS: Heparin DRIP 25,000 UNITS(*) 25,000 UNITS/500 ML BAG IV SCH (08:04)
--- NOTE | 2017-01-18 09:04 | PN ---
Subjective Date of Service: 01/18/17 Interval History: f/u type 2 [place] no chest pain has banding pain across middle of abdomen troponin up to 7, renal function normalized, precordial ST depression ( posterior injury pattern) significantly improved on this AM EKG but not normalized no ventricular arrhythmias Medications Active Medications: Acetaminophen (Tylenol Tab*) 650 mg PO Q4H PRN PRN Reason: FEVER/PAIN Aspirin (Aspirin Ec Low Dose*) 81 mg PO DAILY [facility] Last Admin: 01/17/17 09:55 Dose: 81 mg Atorvastatin Calcium (Lipitor*) 40 mg PO 1700 [facility] Last Admin: 01/17/17 18:02 Dose: 40 mg Clopidogrel Bisulfate (Plavix Tab*) 300 mg PO ONCE [facility] Clopidogrel Bisulfate (Plavix Tab*) 75 mg PO DAILY [facility] Heparin Sodium (Porcine) (Heparin Vial(*)) 0 units IV .PER PROTOCOL [facility] PRN Reason: Protocol Piperacillin Sod/Tazobactam Sod (Zosyn 3.375 Gm In Ns Premix*) 3.375 gm in 100 mls @ 25 mls/hr IVPB Q8H [facility] Last Admin: 01/18/17 04:36 Dose: 25 mls/hr Heparin Sodium/Dextrose (Heparin Drip 25,000 Units(*)) 25,000 units in 500 mls @ 0 mls/hr IV .NO INITIAL BOLUS [facility]; As Directed PRN Reason: Protocol Last Admin: 01/18/17 08:04 Dose: 22 mls/hr Sodium Chloride (Ns 0.9% 1000 Ml*) 1,000 mls @ 40 mls/hr IV PER RATE [facility] Last Admin: 01/18/17 07:47 Dose: 40 mls/hr Metoprolol Tartrate (Lopressor Tab*) 25 mg PO BID [facility] Last Admin: 01/17/17 21:43 Dose: 25 mg Morphine Sulfate (Morphine Inj (Syringe)*) 2 mg IV Q4H PRN PRN Reason: PAIN - MILD Last Admin: 01/18/17 06:56 Dose: 2 mg Ondansetron HCl (Zofran Inj*) 4 mg IV Q6H PRN PRN Reason: NAUSEA Objective Vital Signs: Temp Pulse Resp BP Pulse Ox 96.6 F 74 16 104/61 95 01/18/17 07:27 01/18/17 07:27 01/18/17 07:27 01/18/17 07:27 01/18/17 07:27 Oxygen Devices in Use Now: Nasal Cannula Appearance: pleasant, appears ill but not toxic Ears/Nose/Mouth/Throat: Clear Oropharnyx, Mucous Membranes Moist Neck: NL Appearance and Movements; NL JVP Respiratory: Symmetrical Chest Expansion and Respiratory Effort, Clear to Auscultation Cardiovascular: NL Sounds; No Murmurs; No JVD, RRR, No Edema Abdominal: - - no rigidity Extremities: No Edema Skin: No Rash or Ulcers Neurological: Alert and Oriented x 3 Laboratory Results: 01/18/17 05:48 01/18/17 05:48 INR (Anticoag Therapy) 1.20 (0.89-1.11) H 01/16/17 10:50 APTT 35.6 seconds (26.0-36.3) 01/18/17 07:36 Total Bilirubin 2.10 mg/dL (0.2-1.0) H 01/18/17 05:48 Direct Bilirubin 1.60 mg/dL (0.03-0.18) H 01/17/17 05:00 Indirect Bilirubin 1.1 mg/dL (0.3-1.0) H 01/17/17 05:00 AST 101 U/L (13-39) H 01/18/17 05:48 ALT 45 U/L (7-52) 01/18/17 05:48 Alkaline Phosphatase 419 U/L (34-104) H 01/18/17 05:48 B-Natriuretic Peptide 238 pg/mL (-100) H 01/16/17 10:50 Total Protein 5.4 g/dL (6.4-8.9) L 01/18/17 05:48 Albumin 2.3 g/dL (3.2-5.2) L 01/18/17 05:48 Globulin 3.1 g/dL (2-4) 01/18/17 05:48 Albumin/Globulin Ratio 0.7 (1-3) L 01/18/17 05:48 01/16/17 01/16/17 01/17/17 16:09 19:21 05:00 Troponin I 0.41 H* 0.55 H* 1.66 H* 01/18/17 05:48 Troponin I 7.50 H* Assessment/Plan Mr. Atwood is an 81 year old man with a history of [place] s/p POBA 1994, ongoing tobacco use, HTN, dyslipidemia admitted with suspected cholecystitis, newly diagnosed cirrhosis/ascites, portal vein thrombosis and renal failure ( resolved) and a likely supply/demand related type 2 AL. No malignant arrhythmia , severe valve disease or decompensated HF. LVEF 45% with inferior/ inferolateral scar - Continue aspirin, intensive dose statin if ok from a GI standpoint and beta- rossy - Starting 48 hours heparin gtt - If not going to be long-term anti-coagulated for portal vein thrombosis long- term and no invasive procedures being planned, would give a 300 mg plavix load followed by 75 mg daily - Repeat AM troponin and EKG 01/19/2017 - Continue telemetry monitoring - If patient is to undergo invasive procedure, would recommend ischemic evaluation prior - Will arrange cardiology follow up Thank you for allowing me to participate in the cardiovascular care of this patient. Please do not hesitate to contact me with questions or concerns.
[2017-01-18] MEDS: Aspirin EC Low Dose* 81 MG TAB.EC PO SCH (11:34)
[2017-01-18] MEDS: Metoprolol Tartrate TAB* 25 MG PO SCH ×2 (11:35→21:48)
--- NOTE | 2017-01-18 12:36 | PN ---
Progress Note - Progress Note SOAP: Subjective: Pt seen and examined. Chart reviewed form this admission and ER visit last week. Pt transfered from ICU. Family somewhat upset about this. No appetite. He did walk floor with family members. minimal nausea. Objective: af vss lungs: crackles at bases b/l, shallow breaths abdo: soft/ distended, tender at epigatrum, tympanic, no rebound but tender to percussion. no moore's hypoactive BS labs reviewed U/s and CT report reviewed, but images not available Assessment: LIkely acute cholecystitis for approx 1 week. DDx : choledocholithiaisis AMI Plan: ABX advance diet as tolerated HIDA scan. If occluded cystic duct and pt does not improve, he will likely need cholecystostomy tube. Will follow labs in am case d/w GI
--- NOTE | 2017-01-18 16:11 | RAD ---
Indication: Evaluate for obstructed cystic duct Hepatobiliary scan was performed after intravenous injection of 6.2 mCi of technetium 99m mebrofenin. There is prompt uptake of the radiotracer by the hepatocytes. At 15 minutes there is excretion into the biliary system with reflux into the gallbladder. Small bowel activity is noted at 45 minutes. IMPRESSION: Normal hepatobiliary scan with no evidence of cystic duct obstruction.
[2017-01-18] MEDS: Atorvastatin* 40 MG TAB PO SCH (16:43)
[2017-01-19] MEDS: Piperac/Tazob 3.375 gm in NS* 3.375 GM/100 ML BAG IVPB SCH ×3 (03:51→19:53)
[2017-01-19] MEDS: NS 0.9% 1000 ML* 1,000 ML IV SCH (05:06)
[2017-01-19 07:17] LABS: Hematocrit 35 % (42-52); Hemoglobin 11.9 g/dl (14.0-18.0); Mean Corpuscular HGB Conc 34 g/dl (31-36); Mean Corpuscular Hemoglobin 29 pg (27-31); Mean Corpuscular Volume 86 fL (80-94); Mean Platelet Volume 10 um3 (7.4-10.4); Red Blood Count 4.09 10^6/ul (4.0-5.4); Red Cell Distribution Width 18 % (10.5-15); White Blood Count 9.9 10^3/ul (3.5-10.8)
[2017-01-19 07:33] LABS: Albumin 2.3 g/dL (3.2-5.2); BUN/Creatinine Ratio 48.8 (8-20); Calcium 8.7 mg/dL (8.6-10.3); EGFR African American 109.2 (>60); EGFR Non-African American 84.9 (>60); Globulin 3.1 g/dL (2-4); Potassium 3.5 mmol/L (3.5-5.0); Total Protein 5.4 g/dL (6.4-8.9)
[2017-01-19] MEDS: Clopidogrel TAB* 75 MG PO SCH (07:37)
[2017-01-19] MEDS: Metoprolol Tartrate TAB* 25 MG PO SCH ×2 (07:37→21:57)
[2017-01-19] MEDS: Aspirin EC Low Dose* 81 MG TAB.EC PO SCH (07:37)
[2017-01-19] MEDS: Morphine INJ* 2 MG/ML 1 ML SYRINGE IV PRN (07:37)
[2017-01-19 07:46] LABS: Troponin I 4.95 ng/mL (<0.04)
[2017-01-19] MEDS: Heparin DRIP 25,000 UNITS(*) 25,000 UNITS/500 ML BAG IV SCH ×2 (07:48→12:24)
--- NOTE | 2017-01-19 09:03 | PN ---
Subjective Date of Service: 01/19/17 Interval History: f/u type 2 CA no chest pain no abdomen pain overnight but hasd banding pain across middle/low abdomen this AM troponin down to 5, precordial v2-v3 st depression continues to improve hida scan normal no arrhythmias on tele Medications Active Medications: Acetaminophen (Tylenol Tab*) 650 mg PO Q4H PRN PRN Reason: FEVER/PAIN Aspirin (Aspirin Ec Low Dose*) 81 mg PO DAILY [facility] Last Admin: 01/19/17 07:37 Dose: 81 mg Atorvastatin Calcium (Lipitor*) 40 mg PO 1700 [facility] Last Admin: 01/18/17 16:43 Dose: 40 mg Clopidogrel Bisulfate (Plavix Tab*) 300 mg PO ONCE [facility] Clopidogrel Bisulfate (Plavix Tab*) 75 mg PO DAILY [facility] Last Admin: 01/19/17 07:37 Dose: 75 mg Heparin Sodium (Porcine) (Heparin Vial(*)) 0 units IV .PER PROTOCOL [facility] PRN Reason: Protocol Piperacillin Sod/Tazobactam Sod (Zosyn 3.375 Gm In Ns Premix*) 3.375 gm in 100 mls @ 25 mls/hr IVPB Q8H [facility] Last Admin: 01/19/17 03:51 Dose: 25 mls/hr Heparin Sodium/Dextrose (Heparin Drip 25,000 Units(*)) 25,000 units in 500 mls @ 0 mls/hr IV .NO INITIAL BOLUS [facility]; As Directed PRN Reason: Protocol Last Admin: 01/19/17 07:48 Dose: 18 mls/hr Sodium Chloride (Ns 0.9% 1000 Ml*) 1,000 mls @ 40 mls/hr IV PER RATE [facility] Last Admin: 01/19/17 05:06 Dose: 40 mls/hr Metoprolol Tartrate (Lopressor Tab*) 25 mg PO BID [facility] Last Admin: 01/19/17 07:37 Dose: 25 mg Morphine Sulfate (Morphine Inj (Syringe)*) 2 mg IV Q4H PRN PRN Reason: PAIN - MILD Last Admin: 01/19/17 07:37 Dose: 2 mg Ondansetron HCl (Zofran Inj*) 4 mg IV Q6H PRN PRN Reason: NAUSEA Objective Vital Signs: Temp Pulse Resp BP Pulse Ox 97.9 F 77 16 116/61 94 01/19/17 04:21 01/19/17 04:21 01/19/17 07:49 01/19/17 04:21 01/19/17 04:21 Oxygen Devices in Use Now: Nasal Cannula Appearance: pleasant, appears ill but not toxic Ears/Nose/Mouth/Throat: Clear Oropharnyx, Mucous Membranes Moist Neck: NL Appearance and Movements; NL JVP Respiratory: Symmetrical Chest Expansion and Respiratory Effort Cardiovascular: NL Sounds; No Murmurs; No JVD, RRR, No Edema Abdominal: - - distended without rigidity Extremities: No Edema Skin: No Rash or Ulcers Neurological: Alert and Oriented x 3 Laboratory Results: 01/19/17 06:51 01/19/17 06:51 INR (Anticoag Therapy) 1.33 (0.89-1.11) H 01/19/17 06:51 APTT 73.2 seconds (26.0-36.3) H 01/19/17 06:51 Total Bilirubin 2.00 mg/dL (0.2-1.0) H 01/19/17 06:51 Direct Bilirubin 1.60 mg/dL (0.03-0.18) H 01/17/17 05:00 Indirect Bilirubin 1.1 mg/dL (0.3-1.0) H 01/17/17 05:00 AST 62 U/L (13-39) H 01/19/17 06:51 ALT 39 U/L (7-52) 01/19/17 06:51 Alkaline Phosphatase 388 U/L (34-104) H 01/19/17 06:51 B-Natriuretic Peptide 238 pg/mL (-100) H 01/16/17 10:50 Total Protein 5.4 g/dL (6.4-8.9) L 01/19/17 06:51 Albumin 2.3 g/dL (3.2-5.2) L 01/19/17 06:51 Globulin 3.1 g/dL (2-4) 01/19/17 06:51 Albumin/Globulin Ratio 0.7 (1-3) L 01/19/17 06:51 01/16/17 01/16/17 01/17/17 16:09 19:21 05:00 Troponin I 0.41 H* 0.55 H* 1.66 H* 03/18/17 03/19/17 05:48 06:51 Troponin I 7.50 H* 4.95 H* Assessment/Plan Mr. Atwood is an 81 year old man with a history of CA s/p POBA 1994, ongoing tobacco use, HTN, dyslipidemia admitted with acute intra-abdominal process, newly diagnosed cirrhosis/ascites, portal vein thrombosis (? acute vs. 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 No malignant arrhythmia, severe valve disease or decompensated HF. LVEF 45 % with inferior/inferolateral scar - Continue aspirin, intensive dose statin if ok from a GI standpoint and beta- rossy - Continue 48 hours heparin gtt - If not going to be long-term anti-coagulated for portal vein thrombosis long- term and no invasive procedures being planned, would continue plavix 75 mg PO daily - Continue telemetry monitoring - If patient is to undergo invasive procedure this admission other than paracentesis, would recommend ischemic evaluation prior - Otherwise will arrange cardiology follow up in 1-2 weeks and have an ischemic evaluation once further medically stabilized particularly if surgery being planned - Would consider addressing code status Thank you for allowing me to participate in the cardiovascular care of this patient. Please do not hesitate to contact me with questions or concerns.
--- NOTE | 2017-01-19 15:51 | PN ---
Subjective Date of Service: 01/19/17 Interval History: He denies pain, hasn't used MS since 07:37 today. Appetite fair, sl better today. [place] a [place]. No new c/o. Objective Active Medications: Acetaminophen (Tylenol Tab*) 650 mg PO Q4H PRN PRN Reason: FEVER/PAIN Aspirin (Aspirin Ec Low Dose*) 81 mg PO DAILY [facility] Last Admin: 01/19/17 07:37 Dose: 81 mg Atorvastatin Calcium (Lipitor*) 40 mg PO 1700 [facility] Last Admin: 01/18/17 16:43 Dose: 40 mg Clopidogrel Bisulfate (Plavix Tab*) 300 mg PO ONCE [facility] Clopidogrel Bisulfate (Plavix Tab*) 75 mg PO DAILY [facility] Last Admin: 01/19/17 07:37 Dose: 75 mg Heparin Sodium (Porcine) (Heparin Vial(*)) 0 units IV .PER PROTOCOL [facility] PRN Reason: Protocol Piperacillin Sod/Tazobactam Sod (Zosyn 3.375 Gm In Ns Premix*) 3.375 gm in 100 mls @ 25 mls/hr IVPB Q8H [facility] Last Admin: 01/19/17 12:04 Dose: 25 mls/hr Heparin Sodium/Dextrose (Heparin Drip 25,000 Units(*)) 25,000 units in 500 mls @ 0 mls/hr IV .NO INITIAL BOLUS [facility]; As Directed PRN Reason: Protocol Last Admin: 01/19/17 12:24 Dose: 800 mls/hr Sodium Chloride (Ns 0.9% 1000 Ml*) 1,000 mls @ 40 mls/hr IV PER RATE [facility] Last Admin: 01/19/17 05:06 Dose: 40 mls/hr Metoprolol Tartrate (Lopressor Tab*) 25 mg PO BID [facility] Last Admin: 01/19/17 07:37 Dose: 25 mg Morphine Sulfate (Morphine Inj (Syringe)*) 2 mg IV Q4H PRN PRN Reason: PAIN - MILD Last Admin: 01/19/17 07:37 Dose: 2 mg Ondansetron HCl (Zofran Inj*) 4 mg IV Q6H PRN PRN Reason: NAUSEA Vital Signs 01/18/17 01/18/17 01/18/17 16:26 20:00 20:18 Temperature 97.4 F 97.4 F Pulse Rate 72 76 Respiratory 19 18 18 Rate Blood Pressure 116/63 116/66 (mmHg) O2 Sat by Pulse 97 95 Oximetry 01/18/17 01/19/17 01/19/17 23:54 04:21 07:37 Temperature 97.4 F 97.9 F Pulse Rate 78 77 Respiratory 20 20 16 Rate Blood Pressure 118/64 116/61 (mmHg) O2 Sat by Pulse 95 94 Oximetry 01/19/17 01/19/17 01/19/17 07:49 07:54 08:37 Temperature 98.2 F Pulse Rate 73 Respiratory 16 16 19 Rate Blood Pressure 101/57 (mmHg) O2 Sat by Pulse 94 Oximetry 01/19/17 01/19/17 01/19/17 09:37 11:23 15:15 Temperature 97.9 F Pulse Rate 71 66 Respiratory 16 16 Rate Blood Pressure 117/63 117/63 (mmHg) O2 Sat by Pulse 99 93 Oximetry Oxygen Devices in Use Now: Nasal Cannula Appearance: Alert, in a chair. In good spirits. Looks comfortable. Eyes: No Scleral Icterus Neck: NL Appearance and Movements; NL JVP, No Thyroid Enlargement, Masses Respiratory: Symmetrical Chest Expansion and Respiratory Effort, Clear to Auscultation, Clear to Percussion Cardiovascular: NL Sounds; No Murmurs; No JVD, RRR, No Edema, - Abdominal: NL Sounds; No Tenderness; No Distention, No Hepatosplenomegaly, - - obese Extremities: No Edema, No Clubbing, Cyanosis, - Skin: No Rash or Ulcers, No Nodules or Sclerosis, - Neurological: Alert and Oriented x 3, NL Sensation Result Diagrams: 01/19/17 06:51 01/19/17 06:51 Additional Lab and Data: Lab Results 01/16/17 01/16/17 01/16/17 Range/Units 10:50 10:50 10:50 WBC 10.3 (3.5-10.8) 10^3/ul RBC 4.52 (4.0-5.4) 10^6/ul Hgb 12.9 L (14.0-18.0) g/dl Hct 39 L (42-52) % MCV 87 (80-94) fL MCH 29 (27-31) pg MCHC 33 (31-36) g/dl RDW 17 H (10.5-15) % Plt Count 179 (150-450) 10^3/ul MPV 11 H (7.4-10.4) um3 Neut % (Auto) 79.5 (38-83) % Lymph % (Auto) 8.4 L (25-47) % [place] % (Auto) 11.7 H (1-9) % Eos % (Auto) 0.2 (0-6) % Baso % (Auto) 0.2 (0-2) % Absolute Neuts (auto) 8.2 H (1.5-7.7) 10^3/ul Absolute Lymphs (auto) 0.9 L (1.0-4.8) 10^3/ul Absolute Monos (auto) 1.2 H (0-0.8) 10^3/ul Absolute Eos (auto) 0 (0-0.6) 10^3/ul Absolute Basos (auto) 0 (0-0.2) 10^3/ul Absolute Nucleated RBC 0.02 10^3/ul Nucleated RBC % 0.2 INR (Anticoag Therapy) (0.89-1.11) APTT (26.0-36.3) seconds Sodium 134 (133-145) mmol/L Potassium 3.6 (3.5-5.0) mmol/L Chloride 104 (101-111) mmol/L Carbon Dioxide 22 (22-32) mmol/L Anion Gap 8 (2-11) mmol/L BUN 77 H (6-24) mg/dL Creatinine 1.88 H (0.67-1.17) mg/dL Est GFR ( Amer) 44.3 (>60) Est GFR (Non-Af Amer) 34.4 (>60) BUN/Creatinine Ratio 41.0 H (8-20) Glucose 139 H (70-100) mg/dL Lactic Acid 1.8 (0.5-2.0) mmol/L Calcium 9.0 (8.6-10.3) mg/dL Magnesium 2.5 (1.9-2.7) mg/dL Total Bilirubin 2.70 H (0.2-1.0) mg/dL AST 81 H (13-39) U/L ALT 46 (7-52) U/L Alkaline Phosphatase 348 H (34-104) U/L Total Creatine Kinase 30 (10-223) U/L Troponin I 0.52 H* (<0.04) ng/mL C-Reactive Protein 293.70 H (< 5.00) mg/L B-Natriuretic Peptide ( - 100) pg/mL Total Protein 6.5 (6.4-8.9) g/dL Albumin 2.9 L (3.2-5.2) g/dL Globulin 3.6 (2-4) g/dL Albumin/Globulin Ratio 0.8 L (1-3) Amylase 57 (29-103) U/L Lipase 174 H (11.0-82.0) U/L 01/16/17 01/16/17 Range/Units 10:50 10:50 WBC (3.5-10.8) 10^3/ul RBC (4.0-5.4) 10^6/ul Hgb (14.0-18.0) g/dl Hct (42-52) % MCV (80-94) fL MCH (27-31) pg MCHC (31-36) g/dl RDW (10.5-15) % Plt Count (150-450) 10^3/ul MPV (7.4-10.4) um3 Neut % (Auto) (38-83) % Lymph % (Auto) (25-47) % [place] % (Auto) (1-9) % Eos % (Auto) (0-6) % Baso % (Auto) (0-2) % Absolute Neuts (auto) (1.5-7.7) 10^3/ul Absolute Lymphs (auto) (1.0-4.8) 10^3/ul Absolute Monos (auto) (0-0.8) 10^3/ul Absolute Eos (auto) (0-0.6) 10^3/ul Absolute Basos (auto) (0-0.2) 10^3/ul Absolute Nucleated RBC 10^3/ul Nucleated RBC % INR (Anticoag Therapy) 1.20 H (0.89-1.11) APTT 30.0 (26.0-36.3) seconds Sodium (133-145) mmol/L Potassium (3.5-5.0) mmol/L Chloride (101-111) mmol/L Carbon Dioxide (22-32) mmol/L Anion Gap (2-11) mmol/L BUN (6-24) mg/dL Creatinine (0.67-1.17) mg/dL Est GFR ( Amer) (>60) Est GFR (Non-Af Amer) (>60) BUN/Creatinine Ratio (8-20) Glucose (70-100) mg/dL Lactic Acid (0.5-2.0) mmol/L Calcium (8.6-10.3) mg/dL Magnesium (1.9-2.7) mg/dL Total Bilirubin (0.2-1.0) mg/dL AST (13-39) U/L ALT (7-52) U/L Alkaline Phosphatase (34-104) U/L Total Creatine Kinase (10-223) U/L Troponin I (<0.04) ng/mL C-Reactive Protein (< 5.00) mg/L B-Natriuretic Peptide 238 H ( - 100) pg/mL Total Protein (6.4-8.9) g/dL Albumin (3.2-5.2) g/dL Globulin (2-4) g/dL Albumin/Globulin Ratio (1-3) Amylase (29-103) U/L Lipase (11.0-82.0) U/L Microbiology and Other Data: Microbiology 01/16/17 17:20 Aerobic Blood Culture - Preliminary Blood Venous No Growth Day 1 Anaerobic Blood Culture - Preliminary No Growth Day 1 01/17/17 12:50 Stool Gross Appearance - Final Stool C. difficile DNA Amplification - Final 027 Presumptive NEGATIVE Toxigenic C.diff NEGATIVE Stool Lactoferrin - Final 01/17/17 12:50 Stool Gross Appearance - Final Stool Rotavirus Antigen - Final Negative Rotavirus 01/16/17 15:01 Urine Culture - Final Urine No Growth (<1,000 CFU/mL) 01/16/17 15:01 Nasal Screen MRSA (PCR)(BALDEMAR) - Final Nasal Mrsa Negative Assess/Plan/Problems-Billing Assessment: - Patient Problems (1) Acute cholecystitis Current Visit: Yes Status: Acute Code(s): K81.0 - ACUTE CHOLECYSTITIS SNOMED Code(s): 61010155 Comment: Continue pip/mane. If abdominal X-rays 01/19 OK will advance diet. High risk for cholecystectomy. Lower dose of morphine (1 mg IV) ordered PRN. (2) ACS (acute coronary syndrome) Current Visit: Yes Status: Acute Code(s): I24.9 - ACUTE ISCHEMIC HEART DISEASE, UNSPECIFIED SNOMED Code(s): 441494609 Comment: Heparin started 18 AM. Plan 48 hrs. Known ischemic cardiomyopathy , iLBBB. Add clopidogrel. Discussed with Dr. Grey. This will preclude surgery in the near future. He recommends an outpt stress test. (3) Cirrhosis Current Visit: Yes Status: Acute Comment: Unkown etiology. Hep B S AG, hep C Ab 01/20. INR up to 1.33, 4 days vitamin K ordered. (4) JACQUE (acute kidney injury) Current Visit: Yes Status: Acute Code(s): N17.9 - ACUTE KIDNEY FAILURE, UNSPECIFIED SNOMED Code(s): 57219721 Comment: Resolved. (5) Tobacco abuse Current Visit: Yes Status: Acute Code(s): Z72.0 - TOBACCO USE SNOMED Code( s): 989977459 Comment: Pt advised to quit smoking and avoid second hand smoke. (6) Portal vein thrombosis Current Visit: Yes Status: Acute Code(s): I81 - PORTAL VEIN THROMBOSIS SNOMED Code(s): 85828239 Comment: Discussed with Dr. Bailey. He feels this does not require specific treatment.
[2017-01-19 16:06] LABS: C Reactive Protein 182.5 mg/L (< 5.00)
[2017-01-19 16:12] LABS: C Reactive Protein 203.28 mg/L (< 5.00)
--- NOTE | 2017-01-19 16:40 | RAD ---
Indication: 3 weeks diffuse abdomen pain. Elevated liver enzymes. Cirrhotic liver with portal vein thrombosis. Negative biliary scintigraphy. Comparison: January 18, 2017 biliary scintigraphy, January 16, 2017 RIGHT upper quadrant ultrasound, January 16, 2017 CT. Technique: Supine and upright views of the abdomen. Report: Negative for free air beneath the diaphragm. Unremarkable bowel gas pattern. Calyceal stones at the LEFT kidney corresponding with previous CT finding. Diffuse vascular calcifications and calcification at the level of the RIGHT adrenal gland based on correlation with CT. Unremarkable soft tissue contours. IMPRESSION: No evidence for bowel obstruction or free air. LEFT nephrolithiasis corresponding with previous CT finding.
[2017-01-19] MEDS: Atorvastatin* 40 MG TAB PO SCH (17:10)
[2017-01-19] MEDS: Pantoprazole IV* 40 MG IV SCH (18:20)
[2017-01-20] MEDS: Morphine INJ* 2 MG/ML 1 ML SYRINGE IV PRN ×2 (01:40→23:59)
[2017-01-20] MEDS: Piperac/Tazob 3.375 gm in NS* 3.375 GM/100 ML BAG IVPB SCH ×3 (04:07→20:53)
[2017-01-20 05:22] LABS: Hematocrit 36 % (42-52); Hemoglobin 11.7 g/dl (14.0-18.0); Mean Corpuscular HGB Conc 33 g/dl (31-36); Mean Corpuscular Hemoglobin 28 pg (27-31); Mean Corpuscular Volume 86 fL (80-94); Mean Platelet Volume 10 um3 (7.4-10.4); Red Blood Count 4.15 10^6/ul (4.0-5.4); Red Cell Distribution Width 18 % (10.5-15); White Blood Count 9.7 10^3/ul (3.5-10.8)
[2017-01-20 05:26] LABS: Add Diff/Slide Review? Slide Review Added; Comments Flag Yes
[2017-01-20 05:50] LABS: Troponin I 4.05 ng/mL (<0.04)
[2017-01-20] MEDS: Pantoprazole IV* 40 MG IV SCH ×2 (06:08→17:23)
[2017-01-20] MEDS: Aspirin EC Low Dose* 81 MG TAB.EC PO SCH (10:37)
[2017-01-20] MEDS: Clopidogrel TAB* 75 MG PO SCH (10:37)
[2017-01-20] MEDS: Metoprolol Tartrate TAB* 25 MG PO SCH ×2 (10:37→20:53)
[2017-01-20] MEDS: Phytonadione Oral Solution* 5 MG/25 ML UDC PO SCH (10:37)
[2017-01-20] MEDS: NS 0.9% 1000 ML* 1,000 ML IV SCH (11:36)
[2017-01-20] MEDS: Atorvastatin* 40 MG TAB PO SCH (17:23)
--- NOTE | 2017-01-20 18:08 | PN ---
Subjective Date of Service: 01/20/17 Interval History: Feels fatigued. Generalized pain. Denies SOB or CP. Does think it is harder to breath lying down Objective Active Medications: Acetaminophen (Tylenol Tab*) 650 mg PO Q4H PRN PRN Reason: FEVER/PAIN Aspirin (Aspirin Ec Low Dose*) 81 mg PO DAILY [facility] Last Admin: 01/20/17 10:37 Dose: 81 mg Atorvastatin Calcium (Lipitor*) 40 mg PO 1700 [facility] Last Admin: 01/20/17 17:23 Dose: 40 mg Clopidogrel Bisulfate (Plavix Tab*) 300 mg PO ONCE [facility] Clopidogrel Bisulfate (Plavix Tab*) 75 mg PO DAILY [facility] Last Admin: 01/20/17 10:37 Dose: 75 mg Heparin Sodium (Porcine) (Heparin Vial(*)) 0 units IV .PER PROTOCOL [facility] PRN Reason: Protocol Piperacillin Sod/Tazobactam Sod (Zosyn 3.375 Gm In Ns Premix*) 3.375 gm in 100 mls @ 25 mls/hr IVPB Q8H [facility] Last Admin: 01/20/17 11:36 Dose: 25 mls/hr Heparin Sodium/Dextrose (Heparin Drip 25,000 Units(*)) 25,000 units in 500 mls @ 0 mls/hr IV .NO INITIAL BOLUS [facility]; As Directed PRN Reason: Protocol Last Admin: 01/19/17 12:24 Dose: 800 mls/hr Metoprolol Tartrate (Lopressor Tab*) 25 mg PO BID [facility] Last Admin: 01/20/17 10:37 Dose: 25 mg Morphine Sulfate (Morphine Inj (Syringe)*) 1 mg IV Q4H PRN PRN Reason: PAIN - MODERATE TO SEVERE Last Admin: 01/20/17 01:40 Dose: 1 mg Ondansetron HCl (Zofran Inj*) 4 mg IV Q6H PRN PRN Reason: NAUSEA Pantoprazole Sodium (Protonix Iv*) 40 mg IV Q12H [facility] Last Admin: 01/20/17 17:23 Dose: 40 mg Phytonadione (Vitamin K Oral Solution*) 5 mg PO DAILY [facility] Stop: 01/22/17 21:00 Last Admin: 01/20/17 10:37 Dose: 5 mg Vital Signs 01/19/17 01/19/17 01/20/17 19:13 20:00 00:27 Temperature 98.1 F 98.0 F Pulse Rate 74 77 Respiratory 16 20 Rate Blood Pressure 119/60 108/58 (mmHg) O2 Sat by Pulse 93 96 Oximetry 01/20/17 01/20/17 01/20/17 01:40 02:40 03:41 Temperature 98.1 F Pulse Rate 68 Respiratory 16 16 20 Rate Blood Pressure 104/55 (mmHg) O2 Sat by Pulse 95 Oximetry 01/20/17 01/20/17 01/20/17 08:00 08:08 11:43 Temperature 97.6 F 96.5 F Pulse Rate 70 70 Respiratory 18 16 24 Rate Blood Pressure 103/60 123/56 (mmHg) O2 Sat by Pulse 96 98 Oximetry Oxygen Devices in Use Now: Nasal Cannula Appearance: sitting in chair. NAD Eyes: No Scleral Icterus, PERRLA Ears/Nose/Mouth/Throat: Clear Oropharnyx, Mucous Membranes Moist Neck: NL Appearance and Movements; NL JVP, Trachea Midline Respiratory: Symmetrical Chest Expansion and Respiratory Effort, - - rales b/l bases up / Cardiovascular: RRR Abdominal: - - soft, TTP RUQ, mild distention, +bs Extremities: - - 2+ LE edema Neurological: Alert and Oriented x 3 Result Diagrams: 01/20/17 05:10 01/20/17 05:10 Additional Lab and Data: Lab Results 01/16/17 01/16/17 01/16/17 Range/Units 10:50 10:50 10:50 WBC 10.3 (3.5-10.8) 10^3/ul RBC 4.52 (4.0-5.4) 10^6/ul Hgb 12.9 L (14.0-18.0) g/dl Hct 39 L (42-52) % MCV 87 (80-94) fL MCH 29 (27-31) pg MCHC 33 (31-36) g/dl RDW 17 H (10.5-15) % Plt Count 179 (150-450) 10^3/ul MPV 11 H (7.4-10.4) um3 Neut % (Auto) 79.5 (38-83) % Lymph % (Auto) 8.4 L (25-47) % [place] % (Auto) 11.7 H (1-9) % Eos % (Auto) 0.2 (0-6) % Baso % (Auto) 0.2 (0-2) % Absolute Neuts (auto) 8.2 H (1.5-7.7) 10^3/ul Absolute Lymphs (auto) 0.9 L (1.0-4.8) 10^3/ul Absolute Monos (auto) 1.2 H (0-0.8) 10^3/ul Absolute Eos (auto) 0 (0-0.6) 10^3/ul Absolute Basos (auto) 0 (0-0.2) 10^3/ul Absolute Nucleated RBC 0.02 10^3/ul Nucleated RBC % 0.2 INR (Anticoag Therapy) (0.89-1.11) APTT (26.0-36.3) seconds Sodium 134 (133-145) mmol/L Potassium 3.6 (3.5-5.0) mmol/L Chloride 104 (101-111) mmol/L Carbon Dioxide 22 (22-32) mmol/L Anion Gap 8 (2-11) mmol/L BUN 77 H (6-24) mg/dL Creatinine 1.88 H (0.67-1.17) mg/dL Est GFR ( Amer) 44.3 (>60) Est GFR (Non-Af Amer) 34.4 (>60) BUN/Creatinine Ratio 41.0 H (8-20) Glucose 139 H (70-100) mg/dL Lactic Acid 1.8 (0.5-2.0) mmol/L Calcium 9.0 (8.6-10.3) mg/dL Magnesium 2.5 (1.9-2.7) mg/dL Total Bilirubin 2.70 H (0.2-1.0) mg/dL AST 81 H (13-39) U/L ALT 46 (7-52) U/L Alkaline Phosphatase 348 H (34-104) U/L Total Creatine Kinase 30 (10-223) U/L Troponin I 0.52 H* (<0.04) ng/mL C-Reactive Protein 293.70 H (< 5.00) mg/L B-Natriuretic Peptide ( - 100) pg/mL Total Protein 6.5 (6.4-8.9) g/dL Albumin 2.9 L (3.2-5.2) g/dL Globulin 3.6 (2-4) g/dL Albumin/Globulin Ratio 0.8 L (1-3) Amylase 57 (29-103) U/L Lipase 174 H (11.0-82.0) U/L 01/16/17 01/16/17 Range/Units 10:50 10:50 WBC (3.5-10.8) 10^3/ul RBC (4.0-5.4) 10^6/ul Hgb (14.0-18.0) g/dl Hct (42-52) % MCV (80-94) fL MCH (27-31) pg MCHC (31-36) g/dl RDW (10.5-15) % Plt Count (150-450) 10^3/ul MPV (7.4-10.4) um3 Neut % (Auto) (38-83) % Lymph % (Auto) (25-47) % [place] % (Auto) (1-9) % Eos % (Auto) (0-6) % Baso % (Auto) (0-2) % Absolute Neuts (auto) (1.5-7.7) 10^3/ul Absolute Lymphs (auto) (1.0-4.8) 10^3/ul Absolute Monos (auto) (0-0.8) 10^3/ul Absolute Eos (auto) (0-0.6) 10^3/ul Absolute Basos (auto) (0-0.2) 10^3/ul Absolute Nucleated RBC 10^3/ul Nucleated RBC % INR (Anticoag Therapy) 1.20 H (0.89-1.11) APTT 30.0 (26.0-36.3) seconds Sodium (133-145) mmol/L Potassium (3.5-5.0) mmol/L Chloride (101-111) mmol/L Carbon Dioxide (22-32) mmol/L Anion Gap (2-11) mmol/L BUN (6-24) mg/dL Creatinine (0.67-1.17) mg/dL Est GFR ( Amer) (>60) Est GFR (Non-Af Amer) (>60) BUN/Creatinine Ratio (8-20) Glucose (70-100) mg/dL Lactic Acid (0.5-2.0) mmol/L Calcium (8.6-10.3) mg/dL Magnesium (1.9-2.7) mg/dL Total Bilirubin (0.2-1.0) mg/dL AST (13-39) U/L ALT (7-52) U/L Alkaline Phosphatase (34-104) U/L Total Creatine Kinase (10-223) U/L Troponin I (<0.04) ng/mL C-Reactive Protein (< 5.00) mg/L B-Natriuretic Peptide 238 H ( - 100) pg/mL Total Protein (6.4-8.9) g/dL Albumin (3.2-5.2) g/dL Globulin (2-4) g/dL Albumin/Globulin Ratio (1-3) Amylase (29-103) U/L Lipase (11.0-82.0) U/L Microbiology and Other Data: Microbiology 01/16/17 17:20 Aerobic Blood Culture - Preliminary Blood Venous No Growth Day 1 Anaerobic Blood Culture - Preliminary No Growth Day 1 01/17/17 12:50 Stool Gross Appearance - Final Stool C. difficile DNA Amplification - Final 027 Presumptive NEGATIVE Toxigenic C.diff NEGATIVE Stool Lactoferrin - Final 01/17/17 12:50 Stool Gross Appearance - Final Stool Rotavirus Antigen - Final Negative Rotavirus 01/16/17 15:01 Urine Culture - Final Urine No Growth (<1,000 CFU/mL) 01/16/17 15:01 Nasal Screen MRSA (PCR)(BALDEMAR) - Final Nasal Mrsa Negative Assess/Plan/Problems-Billing Assessment: 81 yo man admitted with abdominal pain found with e/o cholecystitis on CT A/P however negative HIDA, normal WBC, and no fevers. Hospital stay notable for JACQUE now resolved, NSTEMI, and new dx of cirrhosis with abdominal ascites and portal vein thrombosis - Patient Problems (1) ACS (acute coronary syndrome) Comment: Heparin started 01/18 AM. Continue to tomorrow then stop. Known ischemic cardiomyopathy, iLBBB. c/w clopidogrel and ASA, metoprolol, statin Plan outpt stress test. (2) JACQUE (acute kidney injury) Comment: Resolved. stop IVF (3) Acute cholecystitis Comment: Continue pip/mane. negative HIDA Lower dose of morphine (1 mg IV) ordered PRN. (4) Cirrhosis Comment: Unkown etiology. Negative Hep B S AG, hep C Ab 01/20. INR up to 1.33, 4 days vitamin K ordered. (5) Portal vein thrombosis Comment: Heparin gtt Cannot identify chronicity on CT May need EGD to r/o esophageal varices in order to treat with AC (6) Tobacco abuse Comment: Pt advised to quit smoking and avoid second hand smoke. (7) DVT prophylaxis Comment: Heparin gtt
[2017-01-20] MEDS: Heparin DRIP 25,000 UNITS(*) 25,000 UNITS/500 ML BAG IV SCH (22:09)
[2017-01-21] MEDS: Piperac/Tazob 3.375 gm in NS* 3.375 GM/100 ML BAG IVPB SCH ×3 (03:59→21:10)
[2017-01-21] MEDS: Pantoprazole IV* 40 MG IV SCH ×2 (05:24→18:19)
[2017-01-21 07:44] LABS: Albumin 2.6 g/dL (3.2-5.2); BUN/Creatinine Ratio 43.7 (8-20); Calcium 8.7 mg/dL (8.6-10.3); Direct Bilirubin 0.9 mg/dL (0.03-0.18); EGFR African American 107.8 (>60); EGFR Non-African American 83.8 (>60); Globulin 3.3 g/dL (2-4); Indirect Bilirubin 1.5 mg/dL (0.3-1.0); Potassium 3.6 mmol/L (3.5-5.0); Total Bilirubin 2.4 mg/dL (0.2-1.0); Total Protein 5.9 g/dL (6.4-8.9)
[2017-01-21] MEDS: Metoprolol Tartrate TAB* 25 MG PO SCH ×2 (08:58→21:10)
[2017-01-21] MEDS: Aspirin EC Low Dose* 81 MG TAB.EC PO SCH (08:58)
[2017-01-21] MEDS: Clopidogrel TAB* 75 MG PO SCH (08:58)
[2017-01-21] MEDS: Phytonadione Oral Solution* 5 MG/25 ML UDC PO SCH (08:58)
[2017-01-21 09:06] LABS: Hematocrit 38 % (42-52); Hemoglobin 12.2 g/dl (14.0-18.0); Mean Corpuscular HGB Conc 32 g/dl (31-36); Mean Corpuscular Hemoglobin 28 pg (27-31); Mean Corpuscular Volume 87 fL (80-94); Mean Platelet Volume 10 um3 (7.4-10.4); Red Blood Count 4.37 10^6/ul (4.0-5.4); Red Cell Distribution Width 18 % (10.5-15); White Blood Count 13.7 10^3/ul (3.5-10.8)
[2017-01-21] MEDS: Enoxaparin(*) 100 MG/ML SYR SUBCUT SCH (11:47)
--- NOTE | 2017-01-21 16:01 | PN ---
Subjective Date of Service: 01/21/17 Interval History: Up walking around unit today. Feels mouth is dry. Pain much improved. Appetite is very low. Slept in recliner last night not because of SOB but because it was easier to get up to use bathroom Objective Active Medications: Acetaminophen (Tylenol Tab*) 650 mg PO Q4H PRN PRN Reason: FEVER/PAIN Aspirin (Aspirin Ec Low Dose*) 81 mg PO DAILY [facility] Last Admin: 01/21/17 08:58 Dose: 81 mg Atorvastatin Calcium (Lipitor*) 40 mg PO 1700 [facility] Last Admin: 01/20/17 17:23 Dose: 40 mg Clopidogrel Bisulfate (Plavix Tab*) 300 mg PO ONCE [facility] Clopidogrel Bisulfate (Plavix Tab*) 75 mg PO DAILY [facility] Last Admin: 01/21/17 08:58 Dose: 75 mg Enoxaparin Sodium (Lovenox(*)) 100 mg SUBCUT Q24H [facility] Last Admin: 01/21/17 11:47 Dose: 100 mg Furosemide (Lasix Tab*) 20 mg PO DAILY [facility] Piperacillin Sod/Tazobactam Sod (Zosyn 3.375 Gm In Ns Premix*) 3.375 gm in 100 mls @ 25 mls/hr IVPB Q8H [facility] Last Admin: 01/21/17 11:44 Dose: 25 mls/hr Metoprolol Tartrate (Lopressor Tab*) 25 mg PO BID [facility] Last Admin: 01/21/17 08:58 Dose: 25 mg Morphine Sulfate (Morphine Inj (Syringe)*) 1 mg IV Q4H PRN PRN Reason: PAIN - MODERATE TO SEVERE Last Admin: 01/20/17 23:59 Dose: 1 mg Ondansetron HCl (Zofran Inj*) 4 mg IV Q6H PRN PRN Reason: NAUSEA Pantoprazole Sodium (Protonix Iv*) 40 mg IV Q12H [facility] Last Admin: 01/21/17 05:24 Dose: 40 mg Pharmacy Profile Note (Coumadin Daily Reminder*) 1 note FOLLOW UP 1700 [facility] Warfarin Sodium (Coumadin Tab(*)) 7.5 mg PO ONCE@1700 ONE PRN Reason: Protocol Stop: 01/21/17 17:01 Warfarin Sodium (Coumadin Tab(*)) 3 mg PO DAILY@1700 MARSHA PRN Reason: Protocol Vital Signs 0301/20/17 01/20/17 16:32 20:00 20:35 Temperature 97.8 F 98.2 F Pulse Rate 70 73 Respiratory 18 16 16 Rate Blood Pressure 109/60 117/59 (mmHg) O2 Sat by Pulse 96 97 Oximetry 01/20/17 01/21/17 01/21/17 23:59 00:21 00:59 Temperature 97.9 F Pulse Rate 78 Respiratory 16 16 16 Rate Blood Pressure 107/58 (mmHg) O2 Sat by Pulse 94 Oximetry 01/21/17 01/21/17 01/21/17 04:20 07:20 07:39 Temperature 97.9 F 98.1 F Pulse Rate 73 73 Respiratory 16 20 20 Rate Blood Pressure 103/55 111/58 (mmHg) O2 Sat by Pulse 95 96 Oximetry 01/21/17 11:20 Temperature 97.9 F Pulse Rate 71 Respiratory 20 Rate Blood Pressure 110/57 (mmHg) O2 Sat by Pulse 97 Oximetry Oxygen Devices in Use Now: Nasal Cannula Appearance: NAD Eyes: No Scleral Icterus, PERRLA Ears/Nose/Mouth/Throat: Clear Oropharnyx, Mucous Membranes Moist Neck: NL Appearance and Movements; NL JVP, Trachea Midline Respiratory: Symmetrical Chest Expansion and Respiratory Effort, - - rales b/l bases up / Cardiovascular: RRR Abdominal: NL Sounds; No Tenderness; No Distention, No Hepatosplenomegaly Lymphatic: No Cervical Adenopathy Extremities: - - 2+ LE edema Skin: No Rash or Ulcers Neurological: Alert and Oriented x 3 Result Diagrams: 01/21/17 08:41 01/21/17 06:32 Additional Lab and Data: Lab Results 01/16/17 01/16/17 01/16/17 Range/Units 10:50 10:50 10:50 WBC 10.3 (3.5-10.8) 10^3/ul RBC 4.52 (4.0-5.4) 10^6/ul Hgb 12.9 L (14.0-18.0) g/dl Hct 39 L (42-52) % MCV 87 (80-94) fL MCH 29 (27-31) pg MCHC 33 (31-36) g/dl RDW 17 H (10.5-15) % Plt Count 179 (150-450) 10^3/ul MPV 11 H (7.4-10.4) um3 Neut % (Auto) 79.5 (38-83) % Lymph % (Auto) 8.4 L (25-47) % [place] % (Auto) 11.7 H (1-9) % Eos % (Auto) 0.2 (0-6) % Baso % (Auto) 0.2 (0-2) % Absolute Neuts (auto) 8.2 H (1.5-7.7) 10^3/ul Absolute Lymphs (auto) 0.9 L (1.0-4.8) 10^3/ul Absolute Monos (auto) 1.2 H (0-0.8) 10^3/ul Absolute Eos (auto) 0 (0-0.6) 10^3/ul Absolute Basos (auto) 0 (0-0.2) 10^3/ul Absolute Nucleated RBC 0.02 10^3/ul Nucleated RBC % 0.2 INR (Anticoag Therapy) (0.89-1.11) APTT (26.0-36.3) seconds Sodium 134 (133-145) mmol/L Potassium 3.6 (3.5-5.0) mmol/L Chloride 104 (101-111) mmol/L Carbon Dioxide 22 (22-32) mmol/L Anion Gap 8 (2-11) mmol/L BUN 77 H (6-24) mg/dL Creatinine 1.88 H (0.67-1.17) mg/dL Est GFR ( Amer) 44.3 (>60) Est GFR (Non-Af Amer) 34.4 (>60) BUN/Creatinine Ratio 41.0 H (8-20) Glucose 139 H (70-100) mg/dL Lactic Acid 1.8 (0.5-2.0) mmol/L Calcium 9.0 (8.6-10.3) mg/dL Magnesium 2.5 (1.9-2.7) mg/dL Total Bilirubin 2.70 H (0.2-1.0) mg/dL AST 81 H (13-39) U/L ALT 46 (7-52) U/L Alkaline Phosphatase 348 H (34-104) U/L Total Creatine Kinase 30 (10-223) U/L Troponin I 0.52 H* (<0.04) ng/mL C-Reactive Protein 293.70 H (< 5.00) mg/L B-Natriuretic Peptide ( - 100) pg/mL Total Protein 6.5 (6.4-8.9) g/dL Albumin 2.9 L (3.2-5.2) g/dL Globulin 3.6 (2-4) g/dL Albumin/Globulin Ratio 0.8 L (1-3) Amylase 57 (29-103) U/L Lipase 174 H (11.0-82.0) U/L 01/16/17 01/16/17 Range/Units 10:50 10:50 WBC (3.5-10.8) 10^3/ul RBC (4.0-5.4) 10^6/ul Hgb (14.0-18.0) g/dl Hct (42-52) % MCV (80-94) fL MCH (27-31) pg MCHC (31-36) g/dl RDW (10.5-15) % Plt Count (150-450) 10^3/ul MPV (7.4-10.4) um3 Neut % (Auto) (38-83) % Lymph % (Auto) (25-47) % [place] % (Auto) (1-9) % Eos % (Auto) (0-6) % Baso % (Auto) (0-2) % Absolute Neuts (auto) (1.5-7.7) 10^3/ul Absolute Lymphs (auto) (1.0-4.8) 10^3/ul Absolute Monos (auto) (0-0.8) 10^3/ul Absolute Eos (auto) (0-0.6) 10^3/ul Absolute Basos (auto) (0-0.2) 10^3/ul Absolute Nucleated RBC 10^3/ul Nucleated RBC % INR (Anticoag Therapy) 1.20 H (0.89-1.11) APTT 30.0 (26.0-36.3) seconds Sodium (133-145) mmol/L Potassium (3.5-5.0) mmol/L Chloride (101-111) mmol/L Carbon Dioxide (22-32) mmol/L Anion Gap (2-11) mmol/L BUN (6-24) mg/dL Creatinine (0.67-1.17) mg/dL Est GFR ( Amer) (>60) Est GFR (Non-Af Amer) (>60) BUN/Creatinine Ratio (8-20) Glucose (70-100) mg/dL Lactic Acid (0.5-2.0) mmol/L Calcium (8.6-10.3) mg/dL Magnesium (1.9-2.7) mg/dL Total Bilirubin (0.2-1.0) mg/dL AST (13-39) U/L ALT (7-52) U/L Alkaline Phosphatase (34-104) U/L Total Creatine Kinase (10-223) U/L Troponin I (<0.04) ng/mL C-Reactive Protein (< 5.00) mg/L B-Natriuretic Peptide 238 H ( - 100) pg/mL Total Protein (6.4-8.9) g/dL Albumin (3.2-5.2) g/dL Globulin (2-4) g/dL Albumin/Globulin Ratio (1-3) Amylase (29-103) U/L Lipase (11.0-82.0) U/L Microbiology and Other Data: Microbiology 01/16/17 17:20 Aerobic Blood Culture - Preliminary Blood Venous No Growth Day 1 Anaerobic Blood Culture - Preliminary No Growth Day 1 01/17/17 12:50 Stool Gross Appearance - Final Stool C. difficile DNA Amplification - Final 027 Presumptive NEGATIVE Toxigenic C.diff NEGATIVE Stool Lactoferrin - Final 01/17/17 12:50 Stool Gross Appearance - Final Stool Rotavirus Antigen - Final Negative Rotavirus 01/16/17 15:01 Urine Culture - Final Urine No Growth (<1,000 CFU/mL) 01/16/17 15:01 Nasal Screen MRSA (PCR)(BALDEMAR) - Final Nasal Mrsa Negative Assess/Plan/Problems-Billing Assessment: 81 yo man admitted with abdominal pain found with e/o cholecystitis on CT A/P however negative HIDA, normal WBC, and no fevers. Hospital stay notable for JACQUE now resolved, NSTEMI, and new dx of cirrhosis with abdominal ascites and portal vein thrombosis - Patient Problems (1) ACS (acute coronary syndrome) Comment: Heparin started 01/18 AM. Discontinued 01/21 Known ischemic cardiomyopathy, iLBBB. Plavix loaded c/w clopidogrel and ASA, metoprolol, statin Plan outpt stress test. (2) JACQUE (acute kidney injury) Comment: Resolved. stop IVF (3) Acute cholecystitis Comment: Continue pip/mane - Day 5 negative HIDA Lower dose of morphine (1 mg IV) ordered PRN. (4) Cirrhosis Comment: Unkown etiology. Negative Hep B S AG, hep C Ab 01/20. Was obese in younger years prior to [place] Start lasix 20mg PO for abdominal ascites and rales on exam Consider aldactone based on BP (5) Portal vein thrombosis Comment: Lovenox to coumadin bridge May need EGD to r/o esophageal varices in order to treat with AC - asked GI to comment on need (6) Tobacco abuse Comment: Pt advised to quit smoking and avoid second hand smoke. (7) DVT prophylaxis Comment: full dose lovenox
[2017-01-21] MEDS: Atorvastatin* 40 MG TAB PO SCH (16:39)
[2017-01-21] MEDS: Furosemide TAB* 20 MG PO SCH (16:39)
[2017-01-21] MEDS ORDERED: Warfarin TAB(*) 7.5 MG PO ONE (17:00)
[2017-01-21] MEDS: Morphine INJ* 2 MG/ML 1 ML SYRINGE IV PRN (23:20)
[2017-01-22] MEDS: Piperac/Tazob 3.375 gm in NS* 3.375 GM/100 ML BAG IVPB SCH ×3 (04:27→19:58)
[2017-01-22] MEDS: Pantoprazole IV* 40 MG IV SCH ×2 (05:54→18:24)
[2017-01-22 06:54] LABS: Hematocrit 39 % (42-52); Hemoglobin 12.5 g/dl (14.0-18.0); Mean Corpuscular HGB Conc 32 g/dl (31-36); Mean Corpuscular Hemoglobin 28 pg (27-31); Mean Corpuscular Volume 87 fL (80-94); Mean Platelet Volume 10 um3 (7.4-10.4); Red Blood Count 4.44 10^6/ul (4.0-5.4); Red Cell Distribution Width 19 % (10.5-15); White Blood Count 14.6 10^3/ul (3.5-10.8)
[2017-01-22 07:09] LABS: Albumin 2.6 g/dL (3.2-5.2); Calcium 8.7 mg/dL (8.6-10.3); Direct Bilirubin 0.9 mg/dL (0.03-0.18); EGFR African American 103.6 (>60); EGFR Non-African American 80.6 (>60); Globulin 3.3 g/dL (2-4); Indirect Bilirubin 1.5 mg/dL (0.3-1.0); Potassium 3.7 mmol/L (3.5-5.0); Total Bilirubin 2.4 mg/dL (0.2-1.0); Total Protein 5.9 g/dL (6.4-8.9)
--- NOTE | 2017-01-22 08:25 | RAD ---
HISTORY: Abdominal pain COMPARISONS: January 19, 2017 VIEWS: Frontal views of the abdomen. FINDINGS: BOWEL: There is a nonspecific bowel gas pattern, with nondilated small bowel gas noted. CALCULI: There are 2 calculi overlying the left renal parenchymal shadow measuring up to 0.8 cm in size. These are similar to the previous examination. BONES AND SOFT TISSUES: Degenerative changes are noted of the lumbar spine and pelvis OTHER FINDINGS: The lung bases are clear. There is no subphrenic gas. IMPRESSION: LEFT NEPHROLITHIASIS
[2017-01-22] MEDS: Clopidogrel TAB* 75 MG PO SCH (08:45)
[2017-01-22] MEDS: Metoprolol Tartrate TAB* 25 MG PO SCH ×2 (08:46→20:00)
[2017-01-22] MEDS: Furosemide TAB* 20 MG PO SCH (08:46)
[2017-01-22] MEDS: Aspirin EC Low Dose* 81 MG TAB.EC PO SCH (08:46)
--- NOTE | 2017-01-22 10:42 | PN ---
Progress Note - Progress Note SOAP: Subjective: Doing better overall, denies any abdominal pain, nausea or vomiting. Going for an upper endoscopy later this AM. Objective: Awake and alert, appears comfortable, in NAD. Vitals stable, afebrile Abdomen distended, non-tender. No guarding or rebound tenderness. Ext no edema. Assessment: An 81 y/o with multiple medical issues, including liver cirrhosis and ascites. Plan: Await EGD findings. Conservative measures for the time being. No acute surgical issues. Will follow.
[2017-01-22] MEDS ORDERED: Midazolam* 1 MG/ML 5 ML VIAL (5 MG) ONE (15:22)
[2017-01-22] MEDS: Enoxaparin(*) 100 MG/ML SYR SUBCUT SCH (16:33)
--- NOTE | 2017-01-22 16:35 | PN ---
Subjective Date of Service: 01/22/17 Interval History: Appetite and energy remain low Abdominal pain largely resolved Feels bloated which is contributing to decreased PO intake Objective Active Medications: Aspirin (Aspirin Ec Low Dose*) 81 mg PO DAILY [facility] Last Admin: 01/22/17 08:46 Dose: 81 mg Atorvastatin Calcium (Lipitor*) 40 mg PO 1700 [facility] Last Admin: 01/21/17 16:39 Dose: 40 mg Clopidogrel Bisulfate (Plavix Tab*) 75 mg PO DAILY [facility] Last Admin: 01/22/17 08:45 Dose: 75 mg Furosemide (Lasix Tab*) 20 mg PO DAILY [facility] Last Admin: 01/22/17 08:46 Dose: 20 mg Piperacillin Sod/Tazobactam Sod (Zosyn 3.375 Gm In Ns Premix*) 3.375 gm in 100 mls @ 25 mls/hr IVPB Q8H [facility] Last Admin: 01/22/17 11:56 Dose: 25 mls/hr Metoprolol Tartrate (Lopressor Tab*) 25 mg PO BID [facility] Last Admin: 01/22/17 08:46 Dose: 25 mg Ondansetron HCl (Zofran Inj*) 4 mg IV Q6H PRN PRN Reason: NAUSEA Oxycodone HCl (Roxycodone Tab*) 5 mg PO Q4H PRN PRN Reason: PAIN Pantoprazole Sodium (Protonix Iv*) 40 mg IV Q12H [facility] Last Admin: 01/22/17 05:54 Dose: 40 mg Pharmacy Profile Note (Coumadin Daily Reminder*) 1 note FOLLOW UP 170 [facility] Last Admin: 01/21/17 16:39 Dose: 1 note Vital Signs 01/21/17 01/21/17 01/21/17 16:47 20:00 20:34 Temperature 97.8 F 97.5 F Pulse Rate 73 77 Respiratory 18 16 14 Rate Blood Pressure 120/64 115/63 (mmHg) O2 Sat by Pulse 96 95 Oximetry 01/21/17 01/22/17 01/22/17 23:20 00:17 00:20 Temperature 98.0 F Pulse Rate 72 Respiratory 16 16 16 Rate Blood Pressure 106/59 (mmHg) O2 Sat by Pulse 93 Oximetry 01/22/17 01/22/17 01/22/17 05:19 07:40 11:30 Temperature 97.5 F 97.3 F 97.4 F Pulse Rate 73 73 70 Respiratory 16 22 22 Rate Blood Pressure 108/62 110/63 107/56 (mmHg) O2 Sat by Pulse 94 97 96 Oximetry Oxygen Devices in Use Now: Nasal Cannula Appearance: NAD Eyes: No Scleral Icterus Ears/Nose/Mouth/Throat: Clear Oropharnyx, - - dry MM Neck: NL Appearance and Movements; NL JVP, Trachea Midline Respiratory: Symmetrical Chest Expansion and Respiratory Effort, Clear to Auscultation Cardiovascular: RRR Abdominal: - - soft, distented with notable ascites, NTTP, +bs Lymphatic: No Cervical Adenopathy Extremities: - - 2+ le edema Skin: No Rash or Ulcers Neurological: Alert and Oriented x 3 Result Diagrams: 01/22/17 05:58 01/22/17 05:58 Additional Lab and Data: Lab Results 01/16/17 01/16/17 01/16/17 Range/Units 10:50 10:50 10:50 WBC 10.3 (3.5-10.8) 10^3/ul RBC 4.52 (4.0-5.4) 10^6/ul Hgb 12.9 L (14.0-18.0) g/dl Hct 39 L (42-52) % MCV 87 (80-94) fL MCH 29 (27-31) pg MCHC 33 (31-36) g/dl RDW 17 H (10.5-15) % Plt Count 179 (150-450) 10^3/ul MPV 11 H (7.4-10.4) um3 Neut % (Auto) 79.5 (38-83) % Lymph % (Auto) 8.4 L (25-47) % [place] % (Auto) 11.7 H (1-9) % Eos % (Auto) 0.2 (0-6) % Baso % (Auto) 0.2 (0-2) % Absolute Neuts (auto) 8.2 H (1.5-7.7) 10^3/ul Absolute Lymphs (auto) 0.9 L (1.0-4.8) 10^3/ul Absolute Monos (auto) 1.2 H (0-0.8) 10^3/ul Absolute Eos (auto) 0 (0-0.6) 10^3/ul Absolute Basos (auto) 0 (0-0.2) 10^3/ul Absolute Nucleated RBC 0.02 10^3/ul Nucleated RBC % 0.2 INR (Anticoag Therapy) (0.89-1.11) APTT (26.0-36.3) seconds Sodium 134 (133-145) mmol/L Potassium 3.6 (3.5-5.0) mmol/L Chloride 104 (101-111) mmol/L Carbon Dioxide 22 (22-32) mmol/L Anion Gap 8 (2-11) mmol/L BUN 77 H (6-24) mg/dL Creatinine 1.88 H (0.67-1.17) mg/dL Est GFR ( Amer) 44.3 (>60) Est GFR (Non-Af Amer) 34.4 (>60) BUN/Creatinine Ratio 41.0 H (8-20) Glucose 139 H (70-100) mg/dL Lactic Acid 1.8 (0.5-2.0) mmol/L Calcium 9.0 (8.6-10.3) mg/dL Magnesium 2.5 (1.9-2.7) mg/dL Total Bilirubin 2.70 H (0.2-1.0) mg/dL AST 81 H (13-39) U/L ALT 46 (7-52) U/L Alkaline Phosphatase 348 H (34-104) U/L Total Creatine Kinase 30 (10-223) U/L Troponin I 0.52 H* (<0.04) ng/mL C-Reactive Protein 293.70 H (< 5.00) mg/L B-Natriuretic Peptide ( - 100) pg/mL Total Protein 6.5 (6.4-8.9) g/dL Albumin 2.9 L (3.2-5.2) g/dL Globulin 3.6 (2-4) g/dL Albumin/Globulin Ratio 0.8 L (1-3) Amylase 57 (29-103) U/L Lipase 174 H (11.0-82.0) U/L 01/16/17 01/16/17 Range/Units 10:50 10:50 WBC (3.5-10.8) 10^3/ul RBC (4.0-5.4) 10^6/ul Hgb (14.0-18.0) g/dl Hct (42-52) % MCV (80-94) fL MCH (27-31) pg MCHC (31-36) g/dl RDW (10.5-15) % Plt Count (150-450) 10^3/ul MPV (7.4-10.4) um3 Neut % (Auto) (38-83) % Lymph % (Auto) (25-47) % [place] % (Auto) (1-9) % Eos % (Auto) (0-6) % Baso % (Auto) (0-2) % Absolute Neuts (auto) (1.5-7.7) 10^3/ul Absolute Lymphs (auto) (1.0-4.8) 10^3/ul Absolute Monos (auto) (0-0.8) 10^3/ul Absolute Eos (auto) (0-0.6) 10^3/ul Absolute Basos (auto) (0-0.2) 10^3/ul Absolute Nucleated RBC 10^3/ul Nucleated RBC % INR (Anticoag Therapy) 1.20 H (0.89-1.11) APTT 30.0 (26.0-36.3) seconds Sodium (133-145) mmol/L Potassium (3.5-5.0) mmol/L Chloride (101-111) mmol/L Carbon Dioxide (22-32) mmol/L Anion Gap (2-11) mmol/L BUN (6-24) mg/dL Creatinine (0.67-1.17) mg/dL Est GFR ( Amer) (>60) Est GFR (Non-Af Amer) (>60) BUN/Creatinine Ratio (8-20) Glucose (70-100) mg/dL Lactic Acid (0.5-2.0) mmol/L Calcium (8.6-10.3) mg/dL Magnesium (1.9-2.7) mg/dL Total Bilirubin (0.2-1.0) mg/dL AST (13-39) U/L ALT (7-52) U/L Alkaline Phosphatase (34-104) U/L Total Creatine Kinase (10-223) U/L Troponin I (<0.04) ng/mL C-Reactive Protein (< 5.00) mg/L B-Natriuretic Peptide 238 H ( - 100) pg/mL Total Protein (6.4-8.9) g/dL Albumin (3.2-5.2) g/dL Globulin (2-4) g/dL Albumin/Globulin Ratio (1-3) Amylase (29-103) U/L Lipase (11.0-82.0) U/L Microbiology and Other Data: Microbiology 01/16/17 17:20 Aerobic Blood Culture - Preliminary Blood Venous No Growth Day 1 Anaerobic Blood Culture - Preliminary No Growth Day 1 01/17/17 12:50 Stool Gross Appearance - Final Stool C. difficile DNA Amplification - Final 027 Presumptive NEGATIVE Toxigenic C.diff NEGATIVE Stool Lactoferrin - Final 01/17/17 12:50 Stool Gross Appearance - Final Stool Rotavirus Antigen - Final Negative Rotavirus 01/16/17 15:01 Urine Culture - Final Urine No Growth (<1,000 CFU/mL) 01/16/17 15:01 Nasal Screen MRSA (PCR)(BALDEMAR) - Final Nasal Mrsa Negative Assess/Plan/Problems-Billing Assessment: 81 yo man admitted with abdominal pain found with e/o cholecystitis on CT A/P however negative HIDA, normal WBC, and no fevers. Hospital stay notable for JACQUE now resolved, NSTEMI, and new dx of cirrhosis with abdominal ascites and portal vein thrombosisas well as duodenal ulcer found on EGD performed to evaluate for esophageal varices - Patient Problems (1) Duodenal ulcer Comment: Seen on EGD 01/22 IV protonix will need to continue oral on discharge Will not fully anticoagulate for portal vein thrombosis in setting of duodenal ulcer no esophageal varices seen (2) ACS (acute coronary syndrome) Comment: Heparin started 01/18 AM. Discontinued 01/21 Known ischemic cardiomyopathy, iLBBB. Plavix loaded c/w clopidogrel and ASA, metoprolol, statin Plan outpt stress test. (3) JACQUE (acute kidney injury) Comment: Resolved. stop IVF (4) Acute cholecystitis Comment: Continue pip/maen - Day 6 negative HIDA Lower dose of morphine (1 mg IV) changed to oxycodone 01/22 Reeval GB with US hopefully at same time as US for paracentesis (5) Cirrhosis Comment: Complicated by ascites - plan on US guided paracentesis Unkown etiology of cirrhosis Negative Hep B S AG, hep C Ab 01/20. Was obese in younger years prior to [place] Start lasix 20mg PO for abdominal ascites Consider aldactone based on BP (6) Portal vein thrombosis Comment: Stop lovenox and coumadin in setting of duodenal ulcer (7) Tobacco abuse Comment: Pt advised to quit smoking and avoid second hand smoke. (8) DVT prophylaxis Comment: hep SQ
[2017-01-22] MEDS ORDERED: Warfarin TAB(*) 3 MG PO SCH (17:00)
[2017-01-22] MEDS: Atorvastatin* 40 MG TAB PO SCH (18:25)
[2017-01-22] MEDS: Heparin VIAL(*) 5000 UNITS/ML VIAL (FIVE THOUSAND) SUBCUT SCH (22:21)
[2017-01-23] MEDS: Piperac/Tazob 3.375 gm in NS* 3.375 GM/100 ML BAG IVPB SCH ×2 (04:10→12:51)
[2017-01-23] MEDS: Pantoprazole IV* 40 MG IV SCH ×2 (05:34→17:34)
[2017-01-23] MEDS: Heparin VIAL(*) 5000 UNITS/ML VIAL (FIVE THOUSAND) SUBCUT SCH ×3 (05:34→22:35)
--- NOTE | 2017-01-23 05:39 | PRO ---
DATE OF PROCEDURE: 01/22/17 - ROOM #438 PROCEDURE: Upper endoscopy with CLOtest biopsy. MEDICINES USED: Versed 2 mg IV. NARRATIVE: This is an ill 81-year-old gentleman with history of coronary disease and new onset cirrhosis. He was admitted with abdominal pain and on imaging had evidence of cirrhosis and question of biliary disease, perhaps cholecystitis. He had elevated liver tests. Further evaluation included scanning, which demonstrated portal vein thrombosis. An upper endoscopy was recommended to identify any varices prior to anticoagulation therapy. DESCRIPTION OF PROCEDURE: After the procedure was discussed with the patient, risks and benefits were outlined, written consent was obtained; the patient was placed in the left lateral decubitus position; and conscious sedation was administered. A video flexible diagnostic gastroscope was inserted orally and passed carefully into the esophagus. The esophagus, stomach, and duodenum through the second to third portion were well visualized. The patient tolerated the procedure well. There were no immediate complications. FINDINGS: The esophagus was normal without any evidence of varices or erosions. The stomach was entered. The cardia, fundus, and body of the stomach were unremarkable. There were no fundal varices. The antrum was notable for some minimal gastritis. The pylorus was normal and patent. Upon entering the duodenal bulb, there was an approximately 1 cm ulcer seen with a clean white base. The remainder of the second to third portion of the duodenum was normal with a normal folding pattern. The gastroscope was then brought out into the stomach and a CLOtest biopsy was obtained from the antrum. CONCLUSION: Duodenal ulcer as described above, gastritis, but no evidence of esophageal varices or portal hypertensive gastropathy. CC: Dr. Henriquez * [id number]/[facility] #: [id number]
[2017-01-23 06:57] LABS: Hematocrit 38 % (42-52); Hemoglobin 12.1 g/dl (14.0-18.0); Mean Corpuscular HGB Conc 32 g/dl (31-36); Mean Corpuscular Hemoglobin 28 pg (27-31); Mean Corpuscular Volume 87 fL (80-94); Mean Platelet Volume 10 um3 (7.4-10.4); Red Blood Count 4.32 10^6/ul (4.0-5.4); Red Cell Distribution Width 18 % (10.5-15); White Blood Count 14.1 10^3/ul (3.5-10.8)
[2017-01-23 07:11] LABS: Albumin 2.4 g/dL (3.2-5.2); BUN/Creatinine Ratio 40.7 (8-20); Calcium 8.5 mg/dL (8.6-10.3); Direct Bilirubin 0.9 mg/dL (0.03-0.18); EGFR African American 102.3 (>60); EGFR Non-African American 79.6 (>60); Globulin 3.4 g/dL (2-4); Indirect Bilirubin 1.5 mg/dL (0.3-1.0); Potassium 3.4 mmol/L (3.5-5.0); Total Bilirubin 2.4 mg/dL (0.2-1.0); Total Protein 5.8 g/dL (6.4-8.9)
[2017-01-23] MEDS: Furosemide TAB* 20 MG PO SCH (09:39)
[2017-01-23] MEDS: Clopidogrel TAB* 75 MG PO SCH (09:41)
[2017-01-23] MEDS: Metoprolol Tartrate TAB* 25 MG PO SCH ×2 (09:41→22:36)
[2017-01-23] MEDS: Aspirin EC Low Dose* 81 MG TAB.EC PO SCH (09:44)
[2017-01-23] MEDS ORDERED: Bupivacaine 0.25% SDV* 30 ML ONE (11:16)
--- NOTE | 2017-01-23 11:27 | PN ---
Progress Note - Progress Note SOAP: Subjective: Reports feeling a little better today. Denies any pain, N/V, fever or chills. Objective: VSS, afebrile Abdomen soft, round and distended, unchanged from yesterday. No rebound or guarding. Ext. no edema noted. Two small clear-fluid filled bullae, approx. 1-2 cm each, with no erythema or discharge noted. RUQ sonogram done, await results. Patient is heading downstairs for abdominal US with paracentesis. Assessment: An 81 y/o male with complicated medical presentation, including ascites and questionable cholecystitis, which appears to be resolving. Plan: Will await sonogram findings. Conservative measures for the time being.
--- NOTE | 2017-01-23 11:31 | RAD ---
HISTORY: Cholecystitis, increasing white blood cell count COMPARISONS: January 16, 2017 TECHNIQUE: Multiple transverse and longitudinal ultrasound images were obtained of the right upper quadrant of the abdomen using grayscale and color Doppler imaging. FINDINGS: LIVER: There is a micronodular contour to the liver. There is thrombosis of the portal vein. Stable BILIARY TREE: There is no intrahepatic or extrahepatic biliary dilatation. The common duct measures 0.4 cm. GALLBLADDER: There is gallbladder wall thickening with progressive gallbladder wall thickening and hyperemia proximal gallbladder, values of Heister and the cystic duct. There is no reported sonographic Llanos sign. There is sludge within the gallbladder. PANCREAS: The head of the pancreas is unremarkable. The tail of the pancreas is not well visualized secondary to overlying bowel gas. RIGHT KIDNEY: The right kidney is normal in shape, size, contour, and echogenicity. There is no hydronephrosis or nephrolithiasis. The right kidney measures 11.1 x 6.4 x 5.1 cm. AORTA AND IVC: The aorta and IVC are unremarkable. FLUID: There are no pleural effusions. There is no free fluid within the hepatorenal recess. OTHER FINDINGS: There is moderate amount ascites IMPRESSION: 1. PROGRESSIVE GALLBLADDER WALL THICKENING WITH HYPEREMIA AND MUCOSAL THICKENING OF THE BLADDER WALL TOWARDS THE VALVE ALONG THE CYSTIC DUCT. THE DIFFERENTIAL INCLUDES REACTIVE GALLBLADDER WALL THICKENING FROM HEPATIC INFLAMMATION OR HYPOPROTEINEMIA, THOUGH PRIMARY INFECTIOUS/INFLAMMATORY PROCESS OF THE GALLBLADDER IS WITHIN THE DIFFERENTIAL. 2. CIRRHOTIC LIVER WITH ASCITES
--- NOTE | 2017-01-23 12:55 | RAD ---
CPT II Codes: 6100F ULTRASOUND-GUIDED PARACENTESIS. INDICATION: "Bloating" due to peritoneal ascites. COMPARISON: Right upper quadrant ultrasound acquired of the same date. IMAGING FINDINGS AND PROCEDURE NOTE: The benefits of the and risks of procedure explained to the patient. The patient consented of the exam. The patient was brought to the ultrasound suite and multiple images of the peritoneal fluid were obtained. There was a moderate amount of ascites present throughout the abdomen. The largest pocket of fluid was chosen for the paracentesis which was in the left lower quadrant. A time out was performed before beginning the procedure. The patient was prepped and draped in the usual sterile fashion. The patient?s abdominal wall at the site was anesthetized with 1% lidocaine. A small skin carola was made to admit the paracentesis needle and catheter. Under sonographic control the drainage catheter was advanced into the ascites pocket. An image was saved. Approximately 3.5 Liters of a yellow tinged fluid was removed. The patient tolerated procedure well without incident. IMPRESSION: UNCOMPLICATED ULTRASOUND-GUIDED PARACENTESIS DESCRIBED ABOVE.
[2017-01-23 13:43] LABS: Body Fluid WBC 7297 /mcL
[2017-01-23 13:51] LABS: Body Fluid Total Cells Counted 100
[2017-01-23 13:52] LABS: Body Fluid Appearance Cloudy
[2017-01-23] MEDS: Atorvastatin* 40 MG TAB PO SCH (17:34)
--- NOTE | 2017-01-23 19:21 | PN ---
Subjective Date of Service: 01/23/17 Interval History: Seen after paracentesis Bloating feels better. Appetite improved after procedure Denies any pain Objective Active Medications: Aspirin (Aspirin Ec Low Dose*) 81 mg PO DAILY [facility] Last Admin: 01/23/17 09:44 Dose: 81 mg Atorvastatin Calcium (Lipitor*) 40 mg PO 1700 [facility] Last Admin: 01/23/17 17:34 Dose: 40 mg Clopidogrel Bisulfate (Plavix Tab*) 75 mg PO DAILY [facility] Last Admin: 01/23/17 09:41 Dose: 75 mg Furosemide (Lasix Tab*) 20 mg PO DAILY [facility] Last Admin: 01/23/17 09:39 Dose: 20 mg Heparin Sodium (Porcine) (Heparin Vial(*)) 5,000 units SUBCUT Q8HR [facility] Last Admin: 01/23/17 12:52 Dose: 5,000 units Ceftriaxone Sodium 2 gm/ (Sodium Chloride) 100 mls @ 200 mls/hr IVPB Q24H [facility] Metoprolol Tartrate (Lopressor Tab*) 25 mg PO BID [facility] Last Admin: 01/23/17 09:41 Dose: 25 mg Ondansetron HCl (Zofran Inj*) 4 mg IV Q6H PRN PRN Reason: NAUSEA Oxycodone HCl (Roxycodone Tab*) 5 mg PO Q4H PRN PRN Reason: PAIN Pantoprazole Sodium (Protonix Iv*) 40 mg IV Q12H [facility] Last Admin: 01/23/17 17:34 Dose: 40 mg Vital Signs 01/22/17 01/22/17 01/23/17 19:52 20:00 00:04 Temperature 98.4 F 97.4 F Pulse Rate 74 72 Respiratory 18 18 16 Rate Blood Pressure 122/64 111/59 (mmHg) O2 Sat by Pulse 96 94 Oximetry 01/23/17 01/23/17 01/23/17 04:01 07:41 08:00 Temperature 97.8 F 97.4 F Pulse Rate 73 78 Respiratory 16 24 24 Rate Blood Pressure 107/60 109/57 (mmHg) O2 Sat by Pulse 96 96 Oximetry 01/23/17 01/23/17 01/23/17 13:10 15:23 15:26 Temperature 97.3 F 98.4 F Pulse Rate 70 77 77 Respiratory 20 15 Rate Blood Pressure 102/49 96/47 109/54 (mmHg) O2 Sat by Pulse 97 97 Oximetry Oxygen Devices in Use Now: Nasal Cannula Appearance: NAD Eyes: No Scleral Icterus, PERRLA Ears/Nose/Mouth/Throat: Clear Oropharnyx, Mucous Membranes Moist Neck: NL Appearance and Movements; NL JVP, Trachea Midline Respiratory: Symmetrical Chest Expansion and Respiratory Effort, - - rales in bases Cardiovascular: RRR Abdominal: NL Sounds; No Tenderness; No Distention, No Hepatosplenomegaly Extremities: - - 2+ LE edema Neurological: Alert and Oriented x 3 Result Diagrams: 01/23/17 06:15 01/23/17 06:15 Additional Lab and Data: Lab Results 01/16/17 01/16/17 01/16/17 Range/Units 10:50 10:50 10:50 WBC 10.3 (3.5-10.8) 10^3/ul RBC 4.52 (4.0-5.4) 10^6/ul Hgb 12.9 L (14.0-18.0) g/dl Hct 39 L (42-52) % MCV 87 (80-94) fL MCH 29 (27-31) pg MCHC 33 (31-36) g/dl RDW 17 H (10.5-15) % Plt Count 179 (150-450) 10^3/ul MPV 11 H (7.4-10.4) um3 Neut % (Auto) 79.5 (38-83) % Lymph % (Auto) 8.4 L (25-47) % [place] % (Auto) 11.7 H (1-9) % Eos % (Auto) 0.2 (0-6) % Baso % (Auto) 0.2 (0-2) % Absolute Neuts (auto) 8.2 H (1.5-7.7) 10^3/ul Absolute Lymphs (auto) 0.9 L (1.0-4.8) 10^3/ul Absolute Monos (auto) 1.2 H (0-0.8) 10^3/ul Absolute Eos (auto) 0 (0-0.6) 10^3/ul Absolute Basos (auto) 0 (0-0.2) 10^3/ul Absolute Nucleated RBC 0.02 10^3/ul Nucleated RBC % 0.2 INR (Anticoag Therapy) (0.89-1.11) APTT (26.0-36.3) seconds Sodium 134 (133-145) mmol/L Potassium 3.6 (3.5-5.0) mmol/L Chloride 104 (101-111) mmol/L Carbon Dioxide 22 (22-32) mmol/L Anion Gap 8 (2-11) mmol/L BUN 77 H (6-24) mg/dL Creatinine 1.88 H (0.67-1.17) mg/dL Est GFR ( Amer) 44.3 (>60) Est GFR (Non-Af Amer) 34.4 (>60) BUN/Creatinine Ratio 41.0 H (8-20) Glucose 139 H (70-100) mg/dL Lactic Acid 1.8 (0.5-2.0) mmol/L Calcium 9.0 (8.6-10.3) mg/dL Magnesium 2.5 (1.9-2.7) mg/dL Total Bilirubin 2.70 H (0.2-1.0) mg/dL AST 81 H (13-39) U/L ALT 46 (7-52) U/L Alkaline Phosphatase 348 H (34-104) U/L Total Creatine Kinase 30 (10-223) U/L Troponin I 0.52 H* (<0.04) ng/mL C-Reactive Protein 293.70 H (< 5.00) mg/L B-Natriuretic Peptide ( - 100) pg/mL Total Protein 6.5 (6.4-8.9) g/dL Albumin 2.9 L (3.2-5.2) g/dL Globulin 3.6 (2-4) g/dL Albumin/Globulin Ratio 0.8 L (1-3) Amylase 57 (29-103) U/L Lipase 174 H (11.0-82.0) U/L 01/16/17 01/16/17 Range/Units 10:50 10:50 WBC (3.5-10.8) 10^3/ul RBC (4.0-5.4) 10^6/ul Hgb (14.0-18.0) g/dl Hct (42-52) % MCV (80-94) fL MCH (27-31) pg MCHC (31-36) g/dl RDW (10.5-15) % Plt Count (150-450) 10^3/ul MPV (7.4-10.4) um3 Neut % (Auto) (38-83) % Lymph % (Auto) (25-47) % [place] % (Auto) (1-9) % Eos % (Auto) (0-6) % Baso % (Auto) (0-2) % Absolute Neuts (auto) (1.5-7.7) 10^3/ul Absolute Lymphs (auto) (1.0-4.8) 10^3/ul Absolute Monos (auto) (0-0.8) 10^3/ul Absolute Eos (auto) (0-0.6) 10^3/ul Absolute Basos (auto) (0-0.2) 10^3/ul Absolute Nucleated RBC 10^3/ul Nucleated RBC % INR (Anticoag Therapy) 1.20 H (0.89-1.11) APTT 30.0 (26.0-36.3) seconds Sodium (133-145) mmol/L Potassium (3.5-5.0) mmol/L Chloride (101-111) mmol/L Carbon Dioxide (22-32) mmol/L Anion Gap (2-11) mmol/L BUN (6-24) mg/dL Creatinine (0.67-1.17) mg/dL Est GFR ( Amer) (>60) Est GFR (Non-Af Amer) (>60) BUN/Creatinine Ratio (8-20) Glucose (70-100) mg/dL Lactic Acid (0.5-2.0) mmol/L Calcium (8.6-10.3) mg/dL Magnesium (1.9-2.7) mg/dL Total Bilirubin (0.2-1.0) mg/dL AST (13-39) U/L ALT (7-52) U/L Alkaline Phosphatase (34-104) U/L Total Creatine Kinase (10-223) U/L Troponin I (<0.04) ng/mL C-Reactive Protein (< 5.00) mg/L B-Natriuretic Peptide 238 H ( - 100) pg/mL Total Protein (6.4-8.9) g/dL Albumin (3.2-5.2) g/dL Globulin (2-4) g/dL Albumin/Globulin Ratio (1-3) Amylase (29-103) U/L Lipase (11.0-82.0) U/L Microbiology and Other Data: Microbiology 01/16/17 17:20 Aerobic Blood Culture - Preliminary Blood Venous No Growth Day 1 Anaerobic Blood Culture - Preliminary No Growth Day 1 01/17/17 12:50 Stool Gross Appearance - Final Stool C. difficile DNA Amplification - Final 027 Presumptive NEGATIVE Toxigenic C.diff NEGATIVE Stool Lactoferrin - Final 01/17/17 12:50 Stool Gross Appearance - Final Stool Rotavirus Antigen - Final Negative Rotavirus 01/16/17 15:01 Urine Culture - Final Urine No Growth (<1,000 CFU/mL) 01/16/17 15:01 Nasal Screen MRSA (PCR)(BALDEMAR) - Final Nasal Mrsa Negative Assess/Plan/Problems-Billing Assessment: 81 yo man admitted with abdominal pain found with e/o cholecystitis on CT A/P however negative HIDA, normal WBC, and no fevers. Hospital stay notable for JACQUE now resolved, NSTEMI, and new dx of cirrhosis with abdominal ascites and portal vein thrombosisas well as duodenal ulcer found on EGD performed to evaluate for esophageal varices - Patient Problems (1) Elevated alpha fetoprotein Comment: No e/o HCC on CT A/P with contrast Can be elevated in setting of cirrhosis but 78K seems disproportionate Will check MRI abd to eval closer If no e/o HCC can consider germ cell tumors, potential US testes (2) Spontaneous bacterial peritonitis Comment: Abs neutrophils >250 after correcting for blood in tap Has been on zosyn prior to procedure change to CTX 2g 01/23 Will need repeat paracentesis to eval for resolution in the future (3) Duodenal ulcer Comment: Seen on EGD 01/22 IV protonix will need to continue oral on discharge Will not fully anticoagulate for portal vein thrombosis in setting of duodenal ulcer no esophageal varices seen (4) ACS (acute coronary syndrome) Comment: Heparin started 01/18 AM. Discontinued 01/21 Known ischemic cardiomyopathy, iLBBB. Plavix loaded c/w clopidogrel and ASA, metoprolol, statin Plan outpt stress test. (5) JACQUE (acute kidney injury) Comment: Resolved. stop IVF (6) Acute cholecystitis Comment: Continue pip/mane - completed 7 days prior to initiation CTX. 01/23 negative HIDA Lower dose of morphine (1 mg IV) changed to oxycodone 01/22 (7) Cirrhosis Comment: Complicated by ascites AFP >70k Check MRI tomorrow Negative Hep B S AG, hep C Ab 01/20. lasix 20mg PO for abdominal ascites Consider aldactone based on BP (8) Portal vein thrombosis Comment: Stop lovenox and coumadin in setting of duodenal ulcer (9) Tobacco abuse Comment: Pt advised to quit smoking and avoid second hand smoke. (10) DVT prophylaxis Comment: hep SQ
[2017-01-23] MEDS ORDERED: Gadoxetate* (CONTRAST) 181.43 MG/ML 10 ML SDV IV ONE (22:12)
--- NOTE | 2017-01-23 22:35 | RAD ---
Indication: Elevated alpha-fetoprotein. Image sequences: Axial diffusion, axial T2, fat-suppressed T2-weighted images of the liver were obtained. Dynamic axial images were obtained. This was done during intravenous injection of 7 mL of Eovist. 20 minute delayed images were also obtained. The liver is lobulated in contour. No focal masses are identified. No abnormally enhancing lesions are noted. There is enlargement of the right portal vein. There appears to be a filling defect in the main portal vein consistent with portal vein thrombosis. The pancreas demonstrates no mass or pancreatic ductal dilatation. No obvious enhancing lesions are noted although the study may be limited by portable vein thrombosis. Pancreas demonstrates no mass or pancreatic duct dilatation. Left renal cyst is noted. IMPRESSION: LOBULATED LIVER CONSISTENT WITH CIRRHOSIS AND ENLARGED PORTAL VEIN CONSISTENT WITH PORTAL HYPERTENSION. THERE IS PORTAL VEIN THROMBOSIS. MODERATE DEGREE OF ASCITES IS NOTED.
[2017-01-23] MEDS: oxyCODONE TAB* 5 MG TAB PO PRN (23:04)
[2017-01-24] MEDS: Heparin VIAL(*) 5000 UNITS/ML VIAL (FIVE THOUSAND) SUBCUT SCH ×3 (05:52→22:01)
[2017-01-24] MEDS: Pantoprazole IV* 40 MG IV SCH ×2 (05:52→18:27)
[2017-01-24 06:36] LABS: Hematocrit 40 % (42-52); Hemoglobin 12.6 g/dl (14.0-18.0); Mean Corpuscular HGB Conc 32 g/dl (31-36); Mean Corpuscular Hemoglobin 28 pg (27-31); Mean Corpuscular Volume 89 fL (80-94); Mean Platelet Volume 10 um3 (7.4-10.4); Red Blood Count 4.45 10^6/ul (4.0-5.4); Red Cell Distribution Width 19 % (10.5-15); White Blood Count 18.7 10^3/ul (3.5-10.8)
[2017-01-24 07:48] LABS: Albumin 2.4 g/dL (3.2-5.2); Calcium 8.5 mg/dL (8.6-10.3); EGFR African American 109.2 (>60); EGFR Non-African American 84.9 (>60); Globulin 3.3 g/dL (2-4); Potassium 3.8 mmol/L (3.5-5.0); Total Bilirubin 1.4 mg/dL (0.2-1.0); Total Protein 5.7 g/dL (6.4-8.9)
[2017-01-24] MEDS: Metoprolol Tartrate TAB* 25 MG PO SCH ×3 (07:52→23:38)
[2017-01-24] MEDS: Furosemide TAB* 20 MG PO SCH (07:56)
[2017-01-24] MEDS: Clopidogrel TAB* 75 MG PO SCH (07:57)
[2017-01-24] MEDS: Aspirin EC Low Dose* 81 MG TAB.EC PO SCH (07:58)
[2017-01-24 09:52] LABS: Direct Bilirubin 0.5 mg/dL (0.03-0.18); Indirect Bilirubin 0.9 mg/dL (0.3-1.0)
--- NOTE | 2017-01-24 11:24 | PN ---
Progress Note - Progress Note SOAP: Subjective: Feeling better, increased appetite. Denies any pain, N/V, fever or chills. Objective: VSS, afebrile. Abdomen soft, less distended, non-tender. Labs noted, AFP in 78K, negative liver MRI, no pancreatic lesions. Assessment: An 81 y/o male with ascites and portal vein thrombosis, elevated AFP with unclear etiology. Plan: Per medicine, testicular US to evaluate elevated AFP. No surgical indications at this time.
[2017-01-24 14:57] LABS: Total Protein, BF 1.8 g/dL
[2017-01-24] MEDS ORDERED: Vancomycin per Pharmacy* NOTE FOLLOW UP PRN (15:27)
--- NOTE | 2017-01-24 15:36 | PN ---
Subjective Date of Service: 01/24/17 Interval History: Feels well. No abdominal pain. Appetite still low. Walking around unit. Objective Active Medications: Aspirin (Aspirin Ec Low Dose*) 81 mg PO DAILY [facility] Last Admin: 01/24/17 07:58 Dose: 81 mg Atorvastatin Calcium (Lipitor*) 40 mg PO 1700 [facility] Last Admin: 01/23/17 17:34 Dose: 40 mg Clopidogrel Bisulfate (Plavix Tab*) 75 mg PO DAILY [facility] Last Admin: 01/24/17 07:57 Dose: 75 mg Furosemide (Lasix Tab*) 20 mg PO DAILY [facility] Last Admin: 01/24/17 07:56 Dose: 20 mg Heparin Sodium (Porcine) (Heparin Vial(*)) 5,000 units SUBCUT Q8HR [facility] Last Admin: 01/24/17 13:46 Dose: 5,000 units Ceftriaxone Sodium 2 gm/ (Sodium Chloride) 100 mls @ 200 mls/hr IVPB Q24H [facility] Last Admin: 01/23/17 20:46 Dose: 200 mls/hr Vancomycin HCl 1,250 mg/ (Sodium Chloride) 250 mls @ 166.667 mls/hr IVPB ONCE ONE PRN Reason: Protocol Stop: 01/24/17 17:29 Metoprolol Tartrate (Lopressor Tab*) 25 mg PO BID [facility] Last Admin: 01/24/17 07:52 Dose: Not Given Ondansetron HCl (Zofran Inj*) 4 mg IV Q6H PRN PRN Reason: NAUSEA Oxycodone HCl (Roxycodone Tab*) 5 mg PO Q4H PRN PRN Reason: PAIN Last Admin: 01/23/17 23:04 Dose: 5 mg Pantoprazole Sodium (Protonix Iv*) 40 mg IV Q12H [facility] Last Admin: 01/24/17 05:52 Dose: 40 mg Pharmacy Consult (Vancomycin Per Pharmacy*) 1 note FOLLOW UP . PRN PRN Reason: PER PROTOCOL Vital Signs 01/23/17 01/23/17 01/23/17 20:00 22:35 23:04 Temperature 98.3 F Pulse Rate 85 Respiratory 16 16 16 Rate Blood Pressure 109/57 (mmHg) O2 Sat by Pulse 95 Oximetry 01/24/17 01/24/17 01/24/17 00:24 01:04 04:40 Temperature 97.7 F Pulse Rate 80 77 Respiratory 16 16 16 Rate Blood Pressure 109/59 108/56 (mmHg) O2 Sat by Pulse 96 Oximetry 01/24/17 01/24/17 01/24/17 04:43 07:16 08:00 Temperature 97.4 F 97.4 F Pulse Rate 75 78 Respiratory 16 20 16 Rate Blood Pressure 109/58 99/54 (mmHg) O2 Sat by Pulse 96 97 Oximetry 01/24/17 11:58 Temperature 97.4 F Pulse Rate 80 Respiratory 18 Rate Blood Pressure 129/58 (mmHg) O2 Sat by Pulse 100 Oximetry Oxygen Devices in Use Now: Nasal Cannula Appearance: NAD, sitting in chair, Eyes: No Scleral Icterus, PERRLA Ears/Nose/Mouth/Throat: Clear Oropharnyx, Mucous Membranes Moist Neck: NL Appearance and Movements; NL JVP, Trachea Midline Respiratory: Symmetrical Chest Expansion and Respiratory Effort, Clear to Auscultation Cardiovascular: RRR Abdominal: - - soft, NTTP, mil distention, +bs Lymphatic: No Cervical Adenopathy Extremities: - - 2+ edema, exam, no testicular masses or tenderness Skin: - - bullous lesion on dorsum of b/l feet Neurological: Alert and Oriented x 3 Result Diagrams: 01/24/17 06:15 01/24/17 06:15 Additional Lab and Data: Lab Results 01/16/17 01/16/17 01/16/17 Range/Units 10:50 10:50 10:50 WBC 10.3 (3.5-10.8) 10^3/ul RBC 4.52 (4.0-5.4) 10^6/ul Hgb 12.9 L (14.0-18.0) g/dl Hct 39 L (42-52) % MCV 87 (80-94) fL MCH 29 (27-31) pg MCHC 33 (31-36) g/dl RDW 17 H (10.5-15) % Plt Count 179 (150-450) 10^3/ul MPV 11 H (7.4-10.4) um3 Neut % (Auto) 79.5 (38-83) % Lymph % (Auto) 8.4 L (25-47) % [place] % (Auto) 11.7 H (1-9) % Eos % (Auto) 0.2 (0-6) % Baso % (Auto) 0.2 (0-2) % Absolute Neuts (auto) 8.2 H (1.5-7.7) 10^3/ul Absolute Lymphs (auto) 0.9 L (1.0-4.8) 10^3/ul Absolute Monos (auto) 1.2 H (0-0.8) 10^3/ul Absolute Eos (auto) 0 (0-0.6) 10^3/ul Absolute Basos (auto) 0 (0-0.2) 10^3/ul Absolute Nucleated RBC 0.02 10^3/ul Nucleated RBC % 0.2 INR (Anticoag Therapy) (0.89-1.11) APTT (26.0-36.3) seconds Sodium 134 (133-145) mmol/L Potassium 3.6 (3.5-5.0) mmol/L Chloride 104 (101-111) mmol/L Carbon Dioxide 22 (22-32) mmol/L Anion Gap 8 (2-11) mmol/L BUN 77 H (6-24) mg/dL Creatinine 1.88 H (0.67-1.17) mg/dL Est GFR ( Amer) 44.3 (>60) Est GFR (Non-Af Amer) 34.4 (>60) BUN/Creatinine Ratio 41.0 H (8-20) Glucose 139 H (70-100) mg/dL Lactic Acid 1.8 (0.5-2.0) mmol/L Calcium 9.0 (8.6-10.3) mg/dL Magnesium 2.5 (1.9-2.7) mg/dL Total Bilirubin 2.70 H (0.2-1.0) mg/dL AST 81 H (13-39) U/L ALT 46 (7-52) U/L Alkaline Phosphatase 348 H (34-104) U/L Total Creatine Kinase 30 (10-223) U/L Troponin I 0.52 H* (<0.04) ng/mL C-Reactive Protein 293.70 H (< 5.00) mg/L B-Natriuretic Peptide ( - 100) pg/mL Total Protein 6.5 (6.4-8.9) g/dL Albumin 2.9 L (3.2-5.2) g/dL Globulin 3.6 (2-4) g/dL Albumin/Globulin Ratio 0.8 L (1-3) Amylase 57 (29-103) U/L Lipase 174 H (11.0-82.0) U/L 01/16/17 01/16/17 Range/Units 10:50 10:50 WBC (3.5-10.8) 10^3/ul RBC (4.0-5.4) 10^6/ul Hgb (14.0-18.0) g/dl Hct (42-52) % MCV (80-94) fL MCH (27-31) pg MCHC (31-36) g/dl RDW (10.5-15) % Plt Count (150-450) 10^3/ul MPV (7.4-10.4) um3 Neut % (Auto) (38-83) % Lymph % (Auto) (25-47) % [place] % (Auto) (1-9) % Eos % (Auto) (0-6) % Baso % (Auto) (0-2) % Absolute Neuts (auto) (1.5-7.7) 10^3/ul Absolute Lymphs (auto) (1.0-4.8) 10^3/ul Absolute Monos (auto) (0-0.8) 10^3/ul Absolute Eos (auto) (0-0.6) 10^3/ul Absolute Basos (auto) (0-0.2) 10^3/ul Absolute Nucleated RBC 10^3/ul Nucleated RBC % INR (Anticoag Therapy) 1.20 H (0.89-1.11) APTT 30.0 (26.0-36.3) seconds Sodium (133-145) mmol/L Potassium (3.5-5.0) mmol/L Chloride (101-111) mmol/L Carbon Dioxide (22-32) mmol/L Anion Gap (2-11) mmol/L BUN (6-24) mg/dL Creatinine (0.67-1.17) mg/dL Est GFR ( Amer) (>60) Est GFR (Non-Af Amer) (>60) BUN/Creatinine Ratio (8-20) Glucose (70-100) mg/dL Lactic Acid (0.5-2.0) mmol/L Calcium (8.6-10.3) mg/dL Magnesium (1.9-2.7) mg/dL Total Bilirubin (0.2-1.0) mg/dL AST (13-39) U/L ALT (7-52) U/L Alkaline Phosphatase (34-104) U/L Total Creatine Kinase (10-223) U/L Troponin I (<0.04) ng/mL C-Reactive Protein (< 5.00) mg/L B-Natriuretic Peptide 238 H ( - 100) pg/mL Total Protein (6.4-8.9) g/dL Albumin (3.2-5.2) g/dL Globulin (2-4) g/dL Albumin/Globulin Ratio (1-3) Amylase (29-103) U/L Lipase (11.0-82.0) U/L Microbiology and Other Data: Microbiology 01/16/17 17:20 Aerobic Blood Culture - Preliminary Blood Venous No Growth Day 1 Anaerobic Blood Culture - Preliminary No Growth Day 1 01/17/17 12:50 Stool Gross Appearance - Final Stool C. difficile DNA Amplification - Final 027 Presumptive NEGATIVE Toxigenic C.diff NEGATIVE Stool Lactoferrin - Final 01/17/17 12:50 Stool Gross Appearance - Final Stool Rotavirus Antigen - Final Negative Rotavirus 01/16/17 15:01 Urine Culture - Final Urine No Growth (<1,000 CFU/mL) 01/16/17 15:01 Nasal Screen MRSA (PCR)(BALDEMAR) - Final Nasal Mrsa Negative Assess/Plan/Problems-Billing Assessment: 81 yo man admitted with abdominal pain found with e/o cholecystitis on CT A/P however negative HIDA, normal WBC, and no fevers. Hospital stay notable for JACQUE now resolved, NSTEMI, and new dx of cirrhosis with abdominal ascites and portal vein thrombosis as well as duodenal ulcer found on EGD performed to evaluate for esophageal varices - Patient Problems (1) Elevated alpha fetoprotein Comment: No e/o mass on CT A/P with contrast or MRI of liver Concern for germ cell tumor Check US testes and CT chest Check LDH, and B HCG Oncology c/s (2) Spontaneous bacterial peritonitis Comment: + enterococcus while on zosyn maintain CTX Add Vanco for coverage while awaiting sensitivites ID consult Will need repeat paracentesis to eval for resolution in the future (3) Duodenal ulcer Comment: Seen on EGD 01/22 IV protonix will need to continue oral on discharge Will not fully anticoagulate for portal vein thrombosis in setting of duodenal ulcer no esophageal varices seen (4) ACS (acute coronary syndrome) Comment: Heparin started 01/18 AM. Discontinued 01/21 Known ischemic cardiomyopathy, iLBBB. Plavix loaded c/w clopidogrel and ASA, metoprolol, statin Plan outpt stress test. (5) JACQUE (acute kidney injury) Comment: Resolved. stop IVF (6) Acute cholecystitis Comment: zosyn changed to CTX negative HIDA Lower dose of morphine (1 mg IV) changed to oxycodone 01/22 (7) Cirrhosis Comment: Complicated by ascites AFP >70k Negative Hep B S AG, hep C Ab 01/20. lasix 20mg PO for abdominal ascites Consider aldactone based on BP (8) Portal vein thrombosis Comment: Stop lovenox and coumadin in setting of duodenal ulcer (9) Tobacco abuse Comment: Pt advised to quit smoking and avoid second hand smoke. (10) DVT prophylaxis Comment: hep SQ
[2017-01-24] MEDS ORDERED: Vancomycin(*) 1,250 MG in NS 0.9% 250 ML* 250 ML IVPB ONE (16:00)
[2017-01-24] MEDS ORDERED: NS 0.9% 250 ML* 250 ML ONE (16:47)
[2017-01-24] MEDS: Atorvastatin* 40 MG TAB PO SCH (18:27)
--- NOTE | 2017-01-24 19:05 | RAD ---
Indication: Elevated alpha-fetoprotein. Assess for testicular mass. Comparison: None. Technique: Scrotal ultrasound. Report: Normal echotexture 3.5 x 1.5 x 2.4 cm RIGHT testicle and 2.9 x 1.7 x 2.0 cm LEFT testicle. Normal testicular vascularity. No intratesticular lesions evident. 1.2 x 0.9 cm RIGHT epididymis head with 0.6 x 0.7 x 0.6 cm simple appearing epididymal head cyst or spermatocele. Unremarkable 0.7 x 0.7 cm LEFT epididymis head. Small RIGHT hydrocele. Negative for LEFT hydrocele. Negative for varicoceles. IMPRESSION: No evidence for presence of an intratesticular mass or suspicious extratesticular mass to raise concern for neoplasm.
--- NOTE | 2017-01-24 19:10 | RAD ---
INDICATION: Elevated AFP. Assess for mass. COMPARISON: January 16, 2017 CT abdomen. TECHNIQUE: Multidetector CT images were obtained from the lung apices to the upper abdomen. Evaluation of the viscera is limited without IV contrast. REPORT: Predominant linear consolidation at the basilar segments of the bilateral lower lobes is consistent with atelectasis with corresponding volume loss evident based on posterior displacement of the major fissures. Negative for suspicious focal pulmonary lesions. Negative for pleural effusions. Negative for thoracic lymphadenopathy. Mild cardiomegaly with enlargement of the LEFT atrium. Coronary artery calcifications. Negative for pericardial effusion. Normal diameter thoracic aorta with atherosclerotic calcification. Limited images through the upper abdomen are remarkable for sclerotic morphology liver, enlarged spleen, and moderate ascites with increased free peritoneal fluid over the January 16, 2017 exam. Negative for suspicious thoracic osseous lesions. Multilevel thoracic degenerative spondylosis. 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 IMPRESSION: 1. Mild bibasilar atelectasis. 2. Negative for pulmonary or mediastinal masses. 3. Cirrhotic liver morphology with stigmata of portal hypertension and increased ascites evident at the visualized upper abdomen compared with the January 16, [address]
[2017-01-24] MEDS: Zolpidem TAB* 5 MG PO PRN (23:38)
[2017-01-25] MEDS: oxyCODONE TAB* 5 MG TAB PO PRN (03:23)
[2017-01-25] MEDS: Vancomycin(*) 1,000 MG in NS 0.9% 250 ML* 250 ML IVPB SCH ×2 (04:56→17:52)
[2017-01-25] MEDS: Heparin VIAL(*) 5000 UNITS/ML VIAL (FIVE THOUSAND) SUBCUT SCH ×3 (04:56→21:39)
[2017-01-25] MEDS: Pantoprazole IV* 40 MG IV SCH ×2 (04:56→17:56)
[2017-01-25 06:40] LABS: Hematocrit 37 % (42-52); Hemoglobin 12.2 g/dl (14.0-18.0); Mean Corpuscular HGB Conc 33 g/dl (31-36); Mean Corpuscular Hemoglobin 29 pg (27-31); Mean Corpuscular Volume 87 fL (80-94); Mean Platelet Volume 10 um3 (7.4-10.4); Red Blood Count 4.28 10^6/ul (4.0-5.4); Red Cell Distribution Width 19 % (10.5-15); White Blood Count 18.4 10^3/ul (3.5-10.8)
[2017-01-25 06:54] LABS: Albumin 2.1 g/dL (3.2-5.2); Calcium 8.4 mg/dL (8.6-10.3); Direct Bilirubin 0.7 mg/dL (0.03-0.18); EGFR African American 106.4 (>60); EGFR Non-African American 82.7 (>60); Globulin 3.4 g/dL (2-4); Potassium 3.8 mmol/L (3.5-5.0); Total Bilirubin 1.7 mg/dL (0.2-1.0); Total Protein 5.5 g/dL (6.4-8.9)
[2017-01-25] MEDS: Clopidogrel TAB* 75 MG PO SCH (11:27)
[2017-01-25] MEDS: Metoprolol Tartrate TAB* 25 MG PO SCH ×2 (11:27→21:40)
[2017-01-25] MEDS: Aspirin EC Low Dose* 81 MG TAB.EC PO SCH (11:28)
[2017-01-25] MEDS: Furosemide TAB* 20 MG PO SCH (11:28)
[2017-01-25] MEDS ORDERED: NS 0.9% 250 ML* 250 ML ONE (17:29)
[2017-01-25] MEDS: Atorvastatin* 40 MG TAB PO SCH (17:56)
--- NOTE | 2017-01-25 19:40 | PN ---
Subjective Date of Service: 01/25/17 Interval History: Appetite still low ambulating daily around unit abdominal pain a bit more increased today Objective Active Medications: Aspirin (Aspirin Ec Low Dose*) 81 mg PO DAILY [facility] Last Admin: 01/25/17 11:28 Dose: 81 mg Atorvastatin Calcium (Lipitor*) 40 mg PO 1700 [facility] Last Admin: 01/25/17 17:56 Dose: 40 mg Clopidogrel Bisulfate (Plavix Tab*) 75 mg PO DAILY [facility] Last Admin: 01/25/17 11:27 Dose: 75 mg Furosemide (Lasix Tab*) 20 mg PO DAILY [facility] Last Admin: 01/25/17 11:28 Dose: 20 mg Heparin Sodium (Porcine) (Heparin Vial(*)) 5,000 units SUBCUT Q8HR [facility] Last Admin: 01/25/17 14:14 Dose: 5,000 units Vancomycin HCl 1,000 mg/ (Sodium Chloride) 250 mls @ 166.667 mls/hr IVPB Q12H [facility] Last Admin: 01/25/17 17:52 Dose: 166.667 mls/hr Metoprolol Tartrate (Lopressor Tab*) 25 mg PO BID [facility] Last Admin: 01/25/17 11:27 Dose: 25 mg Ondansetron HCl (Zofran Inj*) 4 mg IV Q6H PRN PRN Reason: NAUSEA Oxycodone HCl (Roxycodone Tab*) 5 mg PO Q4H PRN PRN Reason: PAIN Last Admin: 01/25/17 03:23 Dose: 5 mg Pantoprazole Sodium (Protonix Iv*) 40 mg IV Q12H [facility] Last Admin: 01/25/17 17:56 Dose: 40 mg Pharmacy Consult (Vancomycin Per Pharmacy*) 1 note FOLLOW UP . PRN PRN Reason: PER PROTOCOL Pharmacy Profile Note (Vancomycin Trough Check) 1 note FOLLOW UP ONCE ONE Stop: 01/26/17 04:31 Zolpidem Tartrate (Ambien Tab*) 5 mg PO BEDTIME PRN PRN Reason: INSOMNIA Last Admin: 01/24/17 23:38 Dose: 5 mg Vital Signs 01/24/17 01/24/17 01/25/17 20:00 23:35 03:23 Temperature 98.1 F Pulse Rate 93 Respiratory 18 16 16 Rate Blood Pressure 126/61 (mmHg) O2 Sat by Pulse 94 Oximetry 0301/25/17 01/25/17 03:43 05:23 07:31 Temperature 98.5 F 97.5 F Pulse Rate 79 80 Respiratory 16 18 16 Rate Blood Pressure 106/55 108/61 (mmHg) O2 Sat by Pulse 96 100 Oximetry 01/25/17 01/25/17 01/25/17 08:00 11:36 15:51 Temperature 97.7 F 98.9 F Pulse Rate 84 82 Respiratory 16 16 17 Rate Blood Pressure 113/63 109/55 (mmHg) O2 Sat by Pulse 96 96 Oximetry Oxygen Devices in Use Now: Nasal Cannula Appearance: NAD Eyes: No Scleral Icterus, PERRLA Ears/Nose/Mouth/Throat: Clear Oropharnyx, Mucous Membranes Moist Neck: NL Appearance and Movements; NL JVP, Trachea Midline Respiratory: Symmetrical Chest Expansion and Respiratory Effort, Clear to Auscultation Cardiovascular: RRR Abdominal: - - mild TTP RUQ, distended, +bs, soft Extremities: - - 2+ LE edema, cystic collectiosn on b/l feet Result Diagrams: 01/25/17 05:40 01/25/17 05:40 Additional Lab and Data: Lab Results 01/16/17 01/16/17 01/16/17 Range/Units 10:50 10:50 10:50 WBC 10.3 (3.5-10.8) 10^3/ul RBC 4.52 (4.0-5.4) 10^6/ul Hgb 12.9 L (14.0-18.0) g/dl Hct 39 L (42-52) % MCV 87 (80-94) fL MCH 29 (27-31) pg MCHC 33 (31-36) g/dl RDW 17 H (10.5-15) % Plt Count 179 (150-450) 10^3/ul MPV 11 H (7.4-10.4) um3 Neut % (Auto) 79.5 (38-83) % Lymph % (Auto) 8.4 L (25-47) % Pinal % (Auto) 11.7 H (1-9) % Eos % (Auto) 0.2 (0-6) % Baso % (Auto) 0.2 (0-2) % Absolute Neuts (auto) 8.2 H (1.5-7.7) 10^3/ul Absolute Lymphs (auto) 0.9 L (1.0-4.8) 10^3/ul Absolute Monos (auto) 1.2 H (0-0.8) 10^3/ul Absolute Eos (auto) 0 (0-0.6) 10^3/ul Absolute Basos (auto) 0 (0-0.2) 10^3/ul Absolute Nucleated RBC 0.02 10^3/ul Nucleated RBC % 0.2 INR (Anticoag Therapy) (0.89-1.11) APTT (26.0-36.3) seconds Sodium 134 (133-145) mmol/L Potassium 3.6 (3.5-5.0) mmol/L Chloride 104 (101-111) mmol/L Carbon Dioxide 22 (22-32) mmol/L Anion Gap 8 (2-11) mmol/L BUN 77 H (6-24) mg/dL Creatinine 1.88 H (0.67-1.17) mg/dL Est GFR ( Amer) 44.3 (>60) Est GFR (Non-Af Amer) 34.4 (>60) BUN/Creatinine Ratio 41.0 H (8-20) Glucose 139 H (70-100) mg/dL Lactic Acid 1.8 (0.5-2.0) mmol/L Calcium 9.0 (8.6-10.3) mg/dL Magnesium 2.5 (1.9-2.7) mg/dL Total Bilirubin 2.70 H (0.2-1.0) mg/dL AST 81 H (13-39) U/L ALT 46 (7-52) U/L Alkaline Phosphatase 348 H (34-104) U/L Total Creatine Kinase 30 (10-223) U/L Troponin I 0.52 H* (<0.04) ng/mL C-Reactive Protein 293.70 H (< 5.00) mg/L B-Natriuretic Peptide ( - 100) pg/mL Total Protein 6.5 (6.4-8.9) g/dL Albumin 2.9 L (3.2-5.2) g/dL Globulin 3.6 (2-4) g/dL Albumin/Globulin Ratio 0.8 L (1-3) Amylase 57 (29-103) U/L Lipase 174 H (11.0-82.0) U/L 01/16/17 01/16/17 Range/Units 10:50 10:50 WBC (3.5-10.8) 10^3/ul RBC (4.0-5.4) 10^6/ul Hgb (14.0-18.0) g/dl Hct (42-52) % MCV (80-94) fL MCH (27-31) pg MCHC (31-36) g/dl RDW (10.5-15) % Plt Count (150-450) 10^3/ul MPV (7.4-10.4) um3 Neut % (Auto) (38-83) % Lymph % (Auto) (25-47) % Pinal % (Auto) (1-9) % Eos % (Auto) (0-6) % Baso % (Auto) (0-2) % Absolute Neuts (auto) (1.5-7.7) 10^3/ul Absolute Lymphs (auto) (1.0-4.8) 10^3/ul Absolute Monos (auto) (0-0.8) 10^3/ul Absolute Eos (auto) (0-0.6) 10^3/ul Absolute Basos (auto) (0-0.2) 10^3/ul Absolute Nucleated RBC 10^3/ul Nucleated RBC % INR (Anticoag Therapy) 1.20 H (0.89-1.11) APTT 30.0 (26.0-36.3) seconds Sodium (133-145) mmol/L Potassium (3.5-5.0) mmol/L Chloride (101-111) mmol/L Carbon Dioxide (22-32) mmol/L Anion Gap (2-11) mmol/L BUN (6-24) mg/dL Creatinine (0.67-1.17) mg/dL Est GFR ( Amer) (>60) Est GFR (Non-Af Amer) (>60) BUN/Creatinine Ratio (8-20) Glucose (70-100) mg/dL Lactic Acid (0.5-2.0) mmol/L Calcium (8.6-10.3) mg/dL Magnesium (1.9-2.7) mg/dL Total Bilirubin (0.2-1.0) mg/dL AST (13-39) U/L ALT (7-52) U/L Alkaline Phosphatase (34-104) U/L Total Creatine Kinase (10-223) U/L Troponin I (<0.04) ng/mL C-Reactive Protein (< 5.00) mg/L B-Natriuretic Peptide 238 H ( - 100) pg/mL Total Protein (6.4-8.9) g/dL Albumin (3.2-5.2) g/dL Globulin (2-4) g/dL Albumin/Globulin Ratio (1-3) Amylase (29-103) U/L Lipase (11.0-82.0) U/L Microbiology and Other Data: Microbiology 01/16/17 17:20 Aerobic Blood Culture - Preliminary Blood Venous No Growth Day 1 Anaerobic Blood Culture - Preliminary No Growth Day 1 01/17/17 12:50 Stool Gross Appearance - Final Stool C. difficile DNA Amplification - Final 027 Presumptive NEGATIVE Toxigenic C.diff NEGATIVE Stool Lactoferrin - Final 01/17/17 12:50 Stool Gross Appearance - Final Stool Rotavirus Antigen - Final Negative Rotavirus 01/16/17 15:01 Urine Culture - Final Urine No Growth (<1,000 CFU/mL) 01/16/17 15:01 Nasal Screen MRSA (PCR)(BALDEMAR) - Final Nasal Mrsa Negative Assess/Plan/Problems-Billing Assessment: 81 yo man admitted with abdominal pain found with e/o cholecystitis on CT A/P however negative HIDA, normal WBC, and no fevers. Hospital stay notable for JACQUE now resolved, NSTEMI, and new dx of cirrhosis with abdominal ascites and portal vein thrombosis as well as duodenal ulcer found on EGD performed to evaluate for esophageal varices - Patient Problems (1) Elevated alpha fetoprotein Comment: No e/o mass on CT A/P with contrast or MRI of liver Concern for germ cell tumor normal US testes and CT chest normal LDH, B HCG pending Oncology c/s (2) Spontaneous bacterial peritonitis Comment: + enterococcus while on zosyn maintain CTX Add Vanco for coverage while awaiting sensitivites ID consult Will need repeat paracentesis to eval for resolution in the future (3) Duodenal ulcer Comment: Seen on EGD 01/22 IV protonix will need to continue oral on discharge Will not fully anticoagulate for portal vein thrombosis in setting of duodenal ulcer no esophageal varices seen (4) ACS (acute coronary syndrome) Comment: Heparin started 01/18 AM. Discontinued 01/21 Known ischemic cardiomyopathy, iLBBB. Plavix loaded c/w clopidogrel and ASA, metoprolol, statin Plan outpt stress test. (5) JACQUE (acute kidney injury) Comment: Resolved. stop IVF (6) Acute cholecystitis Comment: zosyn changed to CTX negative HIDA Lower dose of morphine (1 mg IV) changed to oxycodone 01/22 (7) Cirrhosis Comment: Complicated by ascites AFP >70k Negative Hep B S AG, hep C Ab 01/20. lasix 20mg PO for abdominal ascites Consider aldactone based on BP (8) Portal vein thrombosis Comment: Stop lovenox and coumadin in setting of duodenal ulcer (9) Tobacco abuse Comment: Pt advised to quit smoking and avoid second hand smoke. (10) DVT prophylaxis Comment: hep SQ
[2017-01-25] MEDS: Zolpidem TAB* 5 MG PO PRN (22:58)
[2017-01-26] MEDS ORDERED: Vancomycin Trough Check NOTE FOLLOW UP ONE ×2 (04:30→16:30)
[2017-01-26] MEDS: Heparin VIAL(*) 5000 UNITS/ML VIAL (FIVE THOUSAND) SUBCUT SCH ×3 (05:27→22:08)
[2017-01-26] MEDS: Vancomycin(*) 1,000 MG in NS 0.9% 250 ML* 250 ML IVPB SCH ×2 (05:28→19:21)
[2017-01-26] MEDS: Pantoprazole IV* 40 MG IV SCH ×2 (05:28→17:59)
[2017-01-26] MEDS: Aspirin EC Low Dose* 81 MG TAB.EC PO SCH (10:40)
[2017-01-26] MEDS: Furosemide TAB* 20 MG PO SCH (10:40)
[2017-01-26] MEDS: Clopidogrel TAB* 75 MG PO SCH (10:40)
[2017-01-26] MEDS: Metoprolol Tartrate TAB* 25 MG PO SCH ×2 (10:43→20:25)
--- NOTE | 2017-01-26 16:35 | PN ---
Subjective Date of Service: 01/26/17 Interval History: Fall overnight Reported getting ambien but no record of such Appetite very low causing daughter some considerable distress No N/V, LH, CP, SOB Does feel abdomen is getting larger again Objective Active Medications: Aspirin (Aspirin Ec Low Dose*) 81 mg PO DAILY [facility] Last Admin: 01/26/17 10:40 Dose: 81 mg Atorvastatin Calcium (Lipitor*) 40 mg PO 1700 [facility] Last Admin: 01/25/17 17:56 Dose: 40 mg Clopidogrel Bisulfate (Plavix Tab*) 75 mg PO DAILY [facility] Last Admin: 01/26/17 10:40 Dose: 75 mg Furosemide (Lasix Tab*) 20 mg PO DAILY [facility] Last Admin: 01/26/17 10:40 Dose: 20 mg Heparin Sodium (Porcine) (Heparin Vial(*)) 5,000 units SUBCUT Q8HR [facility] Last Admin: 01/26/17 14:11 Dose: 5,000 units Vancomycin HCl 1,000 mg/ (Sodium Chloride) 250 mls @ 166.667 mls/hr IVPB Q12H [facility] Last Admin: 01/26/17 05:28 Dose: 166.667 mls/hr Metoprolol Tartrate (Lopressor Tab*) 25 mg PO BID [facility] Last Admin: 01/26/17 10:43 Dose: Not Given Ondansetron HCl (Zofran Inj*) 4 mg IV Q6H PRN PRN Reason: NAUSEA Oxycodone HCl (Roxycodone Tab*) 5 mg PO Q4H PRN PRN Reason: PAIN Last Admin: 01/25/17 03:23 Dose: 5 mg Pantoprazole Sodium (Protonix Iv*) 40 mg IV Q12H [facility] Last Admin: 01/26/17 05:28 Dose: 40 mg Pharmacy Consult (Vancomycin Per Pharmacy*) 1 note FOLLOW UP . PRN PRN Reason: PER PROTOCOL Pharmacy Profile Note (Vancomycin Trough Check) 1 note FOLLOW UP 1630 ONE Stop: 01/26/17 16:31 Zolpidem Tartrate (Ambien Tab*) 5 mg PO BEDTIME PRN PRN Reason: INSOMNIA Last Admin: 01/25/17 22:58 Dose: 5 mg Vital Signs 01/25/17 01/25/17 01/25/17 19:41 20:00 23:53 Temperature 98.0 F 97.9 F Pulse Rate 84 78 Respiratory 18 16 16 Rate Blood Pressure 103/55 86/44 (mmHg) O2 Sat by Pulse 94 94 Oximetry 01/26/17 01/26/17 01/26/17 01:40 02:18 03:15 Temperature 97.4 F Pulse Rate 83 82 82 Respiratory 20 18 Rate Blood Pressure 107/55 99/47 123/53 (mmHg) O2 Sat by Pulse 98 95 95 Oximetry 01/26/17 01/26/17 01/26/17 03:42 04:48 07:35 Temperature 97.3 F 97.4 F Pulse Rate 81 73 Respiratory 16 16 14 Rate Blood Pressure 110/54 104/53 (mmHg) O2 Sat by Pulse 94 85 Oximetry 01/26/17 01/26/17 01/26/17 08:09 12:08 15:41 Temperature 97.4 F 97.6 F Pulse Rate 81 88 90 Respiratory 16 18 16 Rate Blood Pressure 102/57 103/54 112/64 (mmHg) O2 Sat by Pulse 97 97 98 Oximetry Oxygen Devices in Use Now: Nasal Cannula Appearance: sitting in chair, NAD Eyes: No Scleral Icterus, PERRLA Ears/Nose/Mouth/Throat: Mucous Membranes Moist Neck: NL Appearance and Movements; NL JVP, Trachea Midline Respiratory: Symmetrical Chest Expansion and Respiratory Effort, Clear to Auscultation Cardiovascular: NL Sounds; No Murmurs; No JVD, RRR Abdominal: - - soft, mild TTP epigastrum, +distention, no rebound/guarding Lymphatic: No Cervical Adenopathy Extremities: - - 2+ LE edema Skin: - - fluid filled cysts on dorsum of feet ruptured overnight with fall now covered with bandaids Neurological: Alert and Oriented x 3 Result Diagrams: 01/25/17 05:40 01/25/17 05:40 Additional Lab and Data: Lab Results 01/16/17 01/16/17 01/16/17 Range/Units 10:50 10:50 10:50 WBC 10.3 (3.5-10.8) 10^3/ul RBC 4.52 (4.0-5.4) 10^6/ul Hgb 12.9 L (14.0-18.0) g/dl Hct 39 L (42-52) % MCV 87 (80-94) fL MCH 29 (27-31) pg MCHC 33 (31-36) g/dl RDW 17 H (10.5-15) % Plt Count 179 (150-450) 10^3/ul MPV 11 H (7.4-10.4) um3 Neut % (Auto) 79.5 (38-83) % Lymph % (Auto) 8.4 L (25-47) % [place]ike % (Auto) 11.7 H (1-9) % Eos % (Auto) 0.2 (0-6) % Baso % (Auto) 0.2 (0-2) % Absolute Neuts (auto) 8.2 H (1.5-7.7) 10^3/ul Absolute Lymphs (auto) 0.9 L (1.0-4.8) 10^3/ul Absolute Monos (auto) 1.2 H (0-0.8) 10^3/ul Absolute Eos (auto) 0 (0-0.6) 10^3/ul Absolute Basos (auto) 0 (0-0.2) 10^3/ul Absolute Nucleated RBC 0.02 10^3/ul Nucleated RBC % 0.2 INR (Anticoag Therapy) (0.89-1.11) APTT (26.0-36.3) seconds Sodium 134 (133-145) mmol/L Potassium 3.6 (3.5-5.0) mmol/L Chloride 104 (101-111) mmol/L Carbon Dioxide 22 (22-32) mmol/L Anion Gap 8 (2-11) mmol/L BUN 77 H (6-24) mg/dL Creatinine 1.88 H (0.67-1.17) mg/dL Est GFR ( Amer) 44.3 (>60) Est GFR (Non-Af Amer) 34.4 (>60) BUN/Creatinine Ratio 41.0 H (8-20) Glucose 139 H (70-100) mg/dL Lactic Acid 1.8 (0.5-2.0) mmol/L Calcium 9.0 (8.6-10.3) mg/dL Magnesium 2.5 (1.9-2.7) mg/dL Total Bilirubin 2.70 H (0.2-1.0) mg/dL AST 81 H (13-39) U/L ALT 46 (7-52) U/L Alkaline Phosphatase 348 H (34-104) U/L Total Creatine Kinase 30 (10-223) U/L Troponin I 0.52 H* (<0.04) ng/mL C-Reactive Protein 293.70 H (< 5.00) mg/L B-Natriuretic Peptide ( - 100) pg/mL Total Protein 6.5 (6.4-8.9) g/dL Albumin 2.9 L (3.2-5.2) g/dL Globulin 3.6 (2-4) g/dL Albumin/Globulin Ratio 0.8 L (1-3) Amylase 57 (29-103) U/L Lipase 174 H (11.0-82.0) U/L 01/16/17 01/16/17 Range/Units 10:50 10:50 WBC (3.5-10.8) 10^3/ul RBC (4.0-5.4) 10^6/ul Hgb (14.0-18.0) g/dl Hct (42-52) % MCV (80-94) fL MCH (27-31) pg MCHC (31-36) g/dl RDW (10.5-15) % Plt Count (150-450) 10^3/ul MPV (7.4-10.4) um3 Neut % (Auto) (38-83) % Lymph % (Auto) (25-47) % Pike % (Auto) (1-9) % Eos % (Auto) (0-6) % Baso % (Auto) (0-2) % Absolute Neuts (auto) (1.5-7.7) 10^3/ul Absolute Lymphs (auto) (1.0-4.8) 10^3/ul Absolute Monos (auto) (0-0.8) 10^3/ul Absolute Eos (auto) (0-0.6) 10^3/ul Absolute Basos (auto) (0-0.2) 10^3/ul Absolute Nucleated RBC 10^3/ul Nucleated RBC % INR (Anticoag Therapy) 1.20 H (0.89-1.11) APTT 30.0 (26.0-36.3) seconds Sodium (133-145) mmol/L Potassium (3.5-5.0) mmol/L Chloride (101-111) mmol/L Carbon Dioxide (22-32) mmol/L Anion Gap (2-11) mmol/L BUN (6-24) mg/dL Creatinine (0.67-1.17) mg/dL Est GFR ( Amer) (>60) Est GFR (Non-Af Amer) (>60) BUN/Creatinine Ratio (8-20) Glucose (70-100) mg/dL Lactic Acid (0.5-2.0) mmol/L Calcium (8.6-10.3) mg/dL Magnesium (1.9-2.7) mg/dL Total Bilirubin (0.2-1.0) mg/dL AST (13-39) U/L ALT (7-52) U/L Alkaline Phosphatase (34-104) U/L Total Creatine Kinase (10-223) U/L Troponin I (<0.04) ng/mL C-Reactive Protein (< 5.00) mg/L B-Natriuretic Peptide 238 H ( - 100) pg/mL Total Protein (6.4-8.9) g/dL Albumin (3.2-5.2) g/dL Globulin (2-4) g/dL Albumin/Globulin Ratio (1-3) Amylase (29-103) U/L Lipase (11.0-82.0) U/L Microbiology and Other Data: Microbiology 01/16/17 17:20 Aerobic Blood Culture - Preliminary Blood Venous No Growth Day 1 Anaerobic Blood Culture - Preliminary No Growth Day 1 01/17/17 12:50 Stool Gross Appearance - Final Stool C. difficile DNA Amplification - Final 027 Presumptive NEGATIVE Toxigenic C.diff NEGATIVE Stool Lactoferrin - Final 01/17/17 12:50 Stool Gross Appearance - Final Stool Rotavirus Antigen - Final Negative Rotavirus 01/16/17 15:01 Urine Culture - Final Urine No Growth (<1,000 CFU/mL) 01/16/17 15:01 Nasal Screen MRSA (PCR)(BALDEMAR) - Final Nasal Mrsa Negative Assess/Plan/Problems-Billing Assessment: 81 yo man admitted with abdominal pain found with e/o cholecystitis on CT A/P however negative HIDA, normal WBC, and no fevers. Hospital stay notable for JACQUE now resolved, NSTEMI, and new dx of cirrhosis with abdominal ascites and portal vein thrombosis as well as duodenal ulcer found on EGD performed to evaluate for esophageal varices. Further complicated by dx of SBP after paracentesis and very elevated AFP without e/o HCC or other notable source - Patient Problems (1) Elevated alpha fetoprotein Comment: No e/o mass on CT A/P with contrast or MRI of liver Concern for germ cell tumor normal US testes and CT chest normal LDH, B HCG pending Oncology c/s (2) Spontaneous bacterial peritonitis Comment: Should have repeat paracentesis s/p 5 days abx (late friday or Friday) to assess for declining neutrophils + enterococcus while on zosyn maintain CTX Add Vanco for coverage will not stop beta rossy given recent ACS ID consult Will need repeat paracentesis to eval for resolution in the future (3) Duodenal ulcer Comment: Seen on EGD 01/22 IV protonix will need to continue oral on discharge Will not fully anticoagulate for portal vein thrombosis in setting of duodenal ulcer no esophageal varices seen (4) ACS (acute coronary syndrome) Comment: Heparin started 01/18 AM. Discontinued 01/21 Known ischemic cardiomyopathy, iLBBB. Plavix loaded c/w clopidogrel and ASA, metoprolol, statin Plan outpt stress test. (5) JACQUE (acute kidney injury) Comment: Resolved. stop IVF (6) Acute cholecystitis Comment: zosyn changed to CTX negative HIDA Lower dose of morphine (1 mg IV) changed to oxycodone 01/22 (7) Cirrhosis Comment: Complicated by ascites AFP >70k Negative Hep B S AG, hep C Ab 01/20. lasix 20mg PO for abdominal ascites Consider aldactone based on BP (8) Portal vein thrombosis Comment: Stop lovenox and coumadin in setting of duodenal ulcer (9) Tobacco abuse Comment: Pt advised to quit smoking and avoid second hand smoke. (10) DVT prophylaxis Comment: hep SQ
[2017-01-26] MEDS: Atorvastatin* 40 MG TAB PO SCH (17:59)
[2017-01-27] MEDS: oxyCODONE TAB* 5 MG TAB PO PRN ×2 (02:55→12:18)
--- NOTE | 2017-01-27 03:23 | CONS ---
MEDICAL ONCOLOGY CONSULTATION NOTE: DATE OF CONSULT: 01/24/17 REASON FOR CONSULTATION: Markedly elevated AFP in the setting of cirrhosis. HISTORY OF PRESENT ILLNESS: Bernardino Atwood is an 81-year-old male with a longstanding history of coronary artery disease, hypertension, and hyperlipidemia. Of note, he did have an emergency room visit in 2013 at which time, he had a CT scan performed of the abdomen and pelvis. This revealed evidence for cirrhosis at that time. He was being seen with a question of a renal colic. There were no masses seen in the liver nor any adenopathy. Mild splenomegaly was noted. There was no significant ascites at that time. He did have renal stones. Approximately 3 weeks prior to this admission, the patient developed some abdominal pain mostly in the right upper quadrant after eating a fatty meal. His appetite has been somewhat diminished since then and his family reports he has lost maybe 5 or 6 pounds. There was no associated fevers or chills. No nausea or vomiting. No significant changes in bowel habits. Abdominal pain worsened and he presented to the [facility] and then was sent to the emergency room on 01/11/17. At that time, he had imaging performed including both a gallbladder ultrasound and a CT scan. Gallbladder ultrasound confirmed the previous diagnosis of a cirrhotic liver morphology without any hepatic lesions noted. Gallstones and sludge were also noted and thickened gallbladder wall, which was somewhat nonspecific. He was sent home with a question of his pain being due to gallbladder disease versus renal colic versus other urinary causes. At that time, he did have some elevations in liver function tests. ALT was normal. AST was also normal at 39, but bilirubin was mildly elevated at 2.2 and alkaline phosphatase elevated at 216. He presented again to the emergency room and was admitted on 01/16/17. At that time, he had continued and worsening symptoms along with development of diarrhea. He denied any chest pain. His overall condition deteriorated without any fevers or acute signs of infection. Imaging studies were repeated and were without any change on the gallbladder ultrasound. CT scan was also repeated and revealed continued evidence for a distended gallbladder suggesting the possibility of an acute cholecystitis. Evidence for cirrhosis and moderate splenomegaly and ascites was now seen. At this point, his liver function tests were abnormal with an elevated AST to 81 which was as high as 101 two days later. This subsequently returned to normal. ALT has remained normal throughout. Bilirubin was 2.7 and has subsequently declined down to 1.4. Alkaline phosphatase was 348, subsequently rising to 419 and now down to 266. At that time, troponin was mildly elevated at 0.52 and was in this range on 3 separate readings. It was initially felt that he could very well have obstructing gallbladder. CRP was extremely elevated at 293. There was felt to be potential for early signs of cholangitis. He was seen by GI and by Surgery. He was at that time in some mild renal failure with a creatinine of 1.88, which subsequently has returned to normal. The elevated troponins are felt likely due to demand ischemia as he has no EKG changes or chest pain. However, couple days later, he developed a markedly elevated troponin to 7.5 on 01/18/17. Hospital course has been very complicated. In addition to the elevated troponin , he has had further workup for the right upper quadrant abdominal pain and ascites. This has included HIDA scan, which was negative. His non-ST elevation PA was felt to be on a cardiac basis. He was found to have portal vein thrombosis on his imaging studies. On an EGD done to work up the portal vein thrombosis to look for varices, he was found to have a duodenal ulcer. At that time, his anticoagulation was discontinued. He had a paracentesis to look for the cause of the ascites and was found to have spontaneous bacterial peritonitis and found to have enterococcus. He was treated with Zosyn and vancomycin was added while waiting for sensitivities. Working up the cirrhosis and ascites, an alpha fetoprotein level was obtained and was markedly elevated at 78,682 with an upper limit of normal of 6. For this reason that our service has been consulted. Despite the above multiple issues during the hospitalization, he actually feels quite well, reports his abdominal pain is better. He is up and ambulating and eating better than he was on admission. PAST MEDICAL HISTORY: 1. Report of cirrhosis on CT scan of 2013, although never confirmed in the past. He denies any significant use of alcohol. His hepatitis B and C studies are both normal. 2. History of coronary artery disease. Status post cardiac catheterization in the past. Status post PA in 1994 with POBA. 3. History of hypertension. 4. Status post knee arthroscopy. 5. Hyperlipidemia. MEDICATIONS: At the time of admission included: 1. Zocor. 2. Toprol. 3. Lisinopril. 4. [place]. 5. Aspirin. At the present time, the patient is on: 1. Aspirin 81 mg. 2. Metoprolol 25 mg b.i.d. 3. Atorvastatin 40 mg daily. 4. Plavix 75 mg daily. 5. Protonix IV 40 mg b.i.d. 6. Lasix 20 mg daily. 7. Heparin subcu. 8. Vancomycin. ALLERGIES: To LIDOCAINE. FAMILY HISTORY: Mother with cancer, unknown type. No other significant contributing family history. SOCIAL HISTORY: Smoking from age 16 and until the time of his PA at a pack a day and about a quarter of pack a day since then. No significant alcohol. He lives with his . He is retired. REVIEW OF SYSTEMS: Throughout the hospitalization, the patient has not developed any fevers or any active signs of infection despite having evidence for spontaneous bacterial peritonitis by positive culture of his ascites. He has lost approximately 6 to 8 pounds recently and has had decreased energy level at home, although recently several weeks ago was fully active, doing all of his activities of daily living, driving, and living independently. He denies any current chest pain, palpitations, or shortness of breath. Denies any major changes in bowel or bladder habits at this time. Review of systems is otherwise negative except as discussed in the accompanied health history form. PHYSICAL EXAM: An 81-year-old male, in no acute distress. Vital Signs: Blood pressure 129/58, pulse 80, afebrile. HEENT: PERRL. EOMI. No erythema or exudates. No scleral icterus. No palpable palpable cervical, supraclavicular, or axillary adenopathy. Lungs: Clear. Heart: Regular rate and rhythm without murmurs, rubs, or gallops. Abdomen: Soft, nontender, slightly distended without masses or organomegaly. Extremities: 1 to 2+ pitting edema bilaterally. Neurologic Exam: Without focal deficits. Testicular exam without masses. CURRENT LABORATORY STUDIES: Included white count of 18,700, hematocrit 40, hemoglobin 12.6, platelet count 219,000. Electrolytes: Sodium 138, potassium 3.8, chloride 110, bicarb 19, BUN 37, creatinine 0.86. LFTs as discussed above along with troponins. Imaging studies as discussed above. IMPRESSION: An 81-year-old male with evidence for cirrhosis in 2013 and now continued evidence for cirrhosis along with ascites and moderate splenomegaly. He reports no significant alcohol use or abuse in the past and is negative for hepatitis B and C. He has had multiple complications during his hospitalization as discussed above. Alpha fetoprotein level of 78,000 is extremely worrisome from the presence of malignancy. From an oncologic basis, any AFP over 10,000 is usually considered almost pathognomonic in a male of either hepatocellular carcinoma or of a germ cell carcinoma. To further work this up, an MRI scan of the liver has already been obtained and does not reveal any evidence for any focal masses in the liver. This was reviewed personally with Radiology. There is no adenopathy noted on either CT or the MRI. To look into the possibility of a germ cell carcinoma, recommendation is to obtain an LDH and a beta HCG level. Also, obtain a CT scan of the chest along with a testicular ultrasound. This would be to look for both testicular and extratesticular germ cell carcinomas. There is also very slight possibility of having a central nervous system germ cell tumor, but the odds of this occurring in an 81-year-old male with no neurologic symptoms would be extremely remote and I do not believe worth presuming at this time. If no evidence for germ cell carcinoma is seen by testicular ultrasound or chest CT, CT and MRI of the abdomen or by confirmatory laboratory studies with beta HCG and LDH, then this is much more likely to be a primary hepatocellular carcinoma. It is possible he has a lesion which just could not be seen by standard imaging at the present time. Given his age and other medical conditions, if he does not have a hepatocellular carcinoma large enough to affect liver function or large enough to be seen by imaging, there would be no further workup recommended at the present time other than to follow along with repeat imaging. Certainly, if lesions were to be seen in the future, one then would have to discuss what the best local therapy would be for it if it was still localized. If he were found to have metastatic carcinoma, situation will need to be discussed in more detail with him and his family. Further recommendations to follow once the beta HCG, LDH, testicular ultrasound, and a CT scan of the chest are obtained. CC: Dr. Henriquez; Dr. Wan; Dr. Watson; Dr. Grey; Dr. Kruger * [id number]/[facility] #: [id number] [facility]
[2017-01-27] MEDS: Pantoprazole IV* 40 MG IV SCH (05:17)
[2017-01-27] MEDS: Vancomycin(*) 1,000 MG in NS 0.9% 250 ML* 250 ML IVPB SCH (05:17)
[2017-01-27] MEDS: Heparin VIAL(*) 5000 UNITS/ML VIAL (FIVE THOUSAND) SUBCUT SCH ×2 (05:17→14:23)
[2017-01-27 06:16] LABS: Hematocrit 37 % (42-52); Hemoglobin 11.8 g/dl (14.0-18.0); Mean Corpuscular HGB Conc 32 g/dl (31-36); Mean Corpuscular Hemoglobin 28 pg (27-31); Mean Corpuscular Volume 87 fL (80-94); Mean Platelet Volume 11 um3 (7.4-10.4); Red Blood Count 4.17 10^6/ul (4.0-5.4); Red Cell Distribution Width 19 % (10.5-15); White Blood Count 19.1 10^3/ul (3.5-10.8)
[2017-01-27 06:39] LABS: Albumin 1.8 g/dL (3.2-5.2); BUN/Creatinine Ratio 43.4 (8-20); Calcium 7.9 mg/dL (8.6-10.3); Direct Bilirubin 0.8 mg/dL (0.03-0.18); EGFR African American 85.8 (>60); EGFR Non-African American 66.7 (>60); Globulin 2.9 g/dL (2-4); Indirect Bilirubin 1.2 mg/dL (0.3-1.0); Potassium 4.5 mmol/L (3.5-5.0); Total Protein 4.7 g/dL (6.4-8.9)
[2017-01-27] MEDS: Aspirin EC Low Dose* 81 MG TAB.EC PO SCH (08:09)
[2017-01-27] MEDS: Clopidogrel TAB* 75 MG PO SCH (08:09)
[2017-01-27] MEDS: Furosemide TAB* 20 MG PO SCH (10:07)
[2017-01-27] MEDS: Metoprolol Tartrate TAB* 25 MG PO SCH (10:07)
[2017-01-27] MEDS ORDERED: Furosemide TAB* 20 MG PO ONE (11:30)
[2017-01-27] MEDS ORDERED: Metoprolol Tartrate TAB* 25 MG PO SCH (11:30)
[2017-01-27] MEDS ORDERED: Morphine INJ* 2 MG/ML 1 ML SYRINGE IV PRN ×2 (12:41→19:12)
[2017-01-27] MEDS ORDERED: Morphine INJ* 2 MG/ML 1 ML SYRINGE ONE (12:47)
--- NOTE | 2017-01-27 14:28 | CONS ---
CONSULTATION REPORT: DATE OF CONSULT: 01/27/17 REQUESTING PHYSICIAN: Dr. Christy. CONSULTING SERVICE: Infectious Disease. REASON FOR CONSULTATION: Spontaneous bacterial peritonitis. IMPRESSION: 1. Cirrhosis with ascites. Fluid analysis showed 7300 white blood cells, 70% neutrophils. Fluid is growing Enterococcus faecalis. His abdominal pain has apparently improved that started as significant right upper quadrant pain and question of biliary disease. He does continue to have diffuse abdominal discomfort from ascites. 2. Cirrhosis. 3. Elevated AFP. 4. Portal vein thrombosis. 5. Splenomegaly. RECOMMENDATION: Ampicillin 2 g IV every 6 hours. We will stop the vancomycin and follow his abdominal exam. Hopefully that will change to oral antibiotics in the next couple of days. He will have another CT scan of the abdomen today. HISTORY OF PRESENT ILLNESS: This is an 81-year-old man admitted with right upper quadrant pain, initially felt to have gallbladder disease. An ultrasound showed cholecystitis, he was seen by general surgery who did not feel there was cholecystitis based on his symptoms and HIDA scan results. Further evaluation led to diagnosis of cirrhosis, portal vein thrombosis, and ascites. He had sampling of the fluid with findings as above. He was started on Zosyn. When the cultures came back with Enterococcus faecalis, it was changed to vancomycin on Friday. The initial right upper quadrant pain has resolved, but he has diffuse abdominal discomfort and distention and feels bloated. He had had a couple liters of fluid take off of the paracentesis. He has had no fevers, chills, or sweats. He had an alpha fetoprotein of 70,000. He has had a workup , which showed no liver mass and normal testicular ultrasound. PAST MEDICAL HISTORY: 1. Cirrhosis. 2. Hypertension. 3. Hyperlipidemia. 4. Coronary artery disease with history of catheterization. MEDICATIONS: 1. Aspirin. 2. Lipitor. 3. Plavix. 4. Lasix. 5. Heparin subcutaneous injection. 6. Metoprolol. 7. Pantoprazole IV. 8. Vancomycin 1 g every 12 hours. ALLERGIES: LIDOCAINE. FAMILY HISTORY: Parents . Mother with cancer and father had an aneurysm. SOCIAL HISTORY: Lives with his . No history of hepatitis B or C infection. He uses tobacco. REVIEW OF SYSTEMS: All negative to 12-point review of systems except as noted above. PHYSICAL EXAM: Vital Signs: Temperature is 36.4, heart rate 80, respiratory rate 18, blood pressure 90/50, O2 sat 98% on room air. In general, he is awake , not in distress. Neurologic: He is oriented x2, follows commands, answers questions, moves all extremities. HEENT: There is no conjunctival hemorrhage. Oropharyngeal without lesions. Neck: Supple without nuchal rigidity. Lymph Nodes: There is no cervical, supraclavicular, inguinal, axillary, or epitrochlear lymphadenopathy. Heart: Rate is regular and tachycardic without murmurs. Lungs: Decreased breath sounds at the bases bilaterally without wheeze or rales. Abdomen: No shifting dullness. He has spider angioma. There is no rebound. There is bowel sounds present. Skin: There is no rash or splinter hemorrhage. Musculoskeletal: There is no spine tenderness to palpation or joint synovitis. LABORATORY DATA: Creatinine 1.0, bilirubin 2, ALT 22. White blood cell count 19, hemoglobin 11, platelets 194. Please see impressions and recommendations outlined above, which I have discussed with Dr. Phillips. Thank you for asking me to see Mr. Atwood in consultation. [id number]/[facility] #: [id number] [facility]
[2017-01-27] MEDS ORDERED: Morphine INJ* 2 MG/ML 1 ML SYRINGE IV ONE (15:00)
[2017-01-27] MEDS ORDERED: Iohexol 300* (CONTRAST) 10 ML SDV IV ONE (15:43)
--- NOTE | 2017-01-27 16:43 | RAD ---
CLINICAL HISTORY: Diffuse abdominal pain COMPARISON: January 16, 2017 TECHNIQUE: Multiple contiguous axial CT scans were obtained of the abdomen and pelvis after the administration of intravenous contrast. Coronal and sagittal multiplanar reformations are submitted for review. Oral contrast was not administered. Delayed images were obtained through the abdomen and pelvis. FINDINGS: LUNG BASES: There are small bilateral pleural effusions. There is minimal dependent atelectasis of the right lung LIVER: The liver is heterogeneous in attenuation, with a microlobulated contour. Again noted is a filling defect within the right portal vein consistent with thrombosis BILE DUCTS: There is no intrahepatic or extrahepatic biliary dilatation. GALLBLADDER: The fundus of the gallbladder wall is nonenhancing. Again noted is the lateral thickening. PANCREAS: The pancreas is normal, without mass or ductal dilatation. SPLEEN: Again noted is splenomegaly UPPER GI TRACT: Evaluation of the gastrointestinal tract is limited by incomplete gastric distention. The upper GI tract is unremarkable. SMALL BOWEL AND MESENTERY: The small bowel is normal in contour, course, and caliber. There is no obstruction or dilatation. COLON: There are multiple diverticula of the sigmoid colon. There is no pericolonic inflammatory change. ADRENALS: Normal bilaterally. KIDNEYS: There are multiple parapelvic cysts on the left. There is nonobstructive calculus of the midpole of the left kidney. BLADDER: The bladder is incompletely distended but is grossly normal. PELVIC ORGANS: The prostate is diffusely enlarged. The seminal vesicles are symmetric. AORTA: There is calcific atherosclerotic disease of the abdominal aorta and its branches, without aneurysmal dilatation IVC: Unremarkable LYMPH NODES: There is no lymphadenopathy by size criteria. ABDOMINAL WALL: There is no evidence for abdominal wall hernia. BONES AND SOFT TISSUES: Degenerative changes are noted OTHER: There is a very large amount of ascites IMPRESSION: 1. THE FUNDUS OF THE GALLBLADDER IS NO LONGER ENHANCING CONCERNING FOR ACUTE CHOLECYSTITIS WITH NECROSIS OF THE GALLBLADDER WALL. 2. THERE IS A VERY LARGE AMOUNT OF ASCITES. 3. CIRRHOTIC LIVER WITH PORTAL VEIN THROMBOSIS. 4. ATHEROSCLEROSIS. 5. SMALL BILATERAL PLEURAL EFFUSIONS
[2017-01-27 16:49] VITALS: BP 92/58
[2017-01-27] MEDS ORDERED: Pantoprazole IV* 40 MG IV SCH (17:00)
[2017-01-27] MEDS ORDERED: Piperac/Tazob 3.375 gm in NS* 3.375 GM/100 ML BAG IVPB SCH (17:00)
[2017-01-27] MEDS: Atorvastatin* 40 MG TAB PO SCH (18:17)
--- NOTE | 2017-01-27 19:18 | PN ---
Progress Note - Progress Note SOAP: Subjective: []Asked to see patient to diascuss that we do not have a clear diagnosis for his increased AFP. Entering room he is actively dying. Family understands. Morphine Sulfate (Morphine Inj (Syringe)*) 1 mg IV Q1H PRN PRN Reason: PAIN Ondansetron HCl (Zofran Inj*) 4 mg IV Q6H PRN PRN Reason: NAUSEA Oxycodone HCl (Roxycodone Tab*) 5 mg PO Q4H PRN PRN Reason: PAIN Last Admin: 01/27/17 02:55 Dose: 5 mg Objective: [] Vital Signs Temp Pulse Resp BP Pulse Ox 97 F 92 22 92/58 94 01/27/17 16:48 01/27/17 16:48 01/27/17 16:48 01/27/17 16:48 01/27/17 16:48 HEENT - thin and distressed agonal breathing distended abd ext cool Assessment: []81 year old end of life, likely liver failure as proximal cause but underling disease unclear. Expect days at most. They understand and agree to comfort care. Plan: []1. DNR/DNI 2. Stop all medication not directly for comfort 3. No additional labs or studies 4. Stop telemetry. 5. Many family members present.
--- NOTE | 2017-01-27 20:12 | PN ---
Subjective Date of Service: 01/27/17 Interval History: Pt was seen at least 4 times over the course of the day. At approx 9 AM, he was lethargic , but c/o no pain. At approx 10 AM pt c/om sudden onset of diffuse abd pain. Had no peritoneal signs, no rebound, but decreased BS. treated with morphine. At approx 1-2 PM pt was seen for f/u -still uncomfortable, but declined morphine. At [address] resulted pt was seen together with Dr. Hernandez. at that time he appeared more lethargic. Pt was deemed not to be a surgical candidate. The family was notified that pt appears to be dying of liver failure and possible unknown malignancy. Acute necrotic gallbladder was also a possibility. At that point pt's requested for pt to be comfort care. DNR was signed in presence of Dr. Mallory that rounded on pt at 7 PM. Objective Active Medications: Morphine Sulfate (Morphine Inj (Syringe)*) 1 mg IV Q1H PRN PRN Reason: PAIN Last Admin: 01/27/17 19:50 Dose: 1 mg Ondansetron HCl (Zofran Inj*) 4 mg IV Q6H PRN PRN Reason: NAUSEA Oxycodone HCl (Roxycodone Tab*) 5 mg PO Q4H PRN PRN Reason: PAIN Last Admin: 01/27/17 02:55 Dose: 5 mg Vital Signs 01/27/17 01/27/17 01/27/17 00:04 00:57 02:55 Temperature 97.4 F 97.4 F Pulse Rate 79 79 Respiratory 20 20 16 Rate Blood Pressure 98/47 98/47 (mmHg) O2 Sat by Pulse 98 98 Oximetry 01/27/17 01/27/17 01/27/17 03:58 04:55 07:22 Temperature 97.4 F 97.5 F Pulse Rate 81 83 Respiratory 20 14 18 Rate Blood Pressure 91/50 99/54 (mmHg) O2 Sat by Pulse 93 98 Oximetry 01/27/17 01/27/17 01/27/17 07:35 07:44 08:00 Temperature Pulse Rate 82 Respiratory 18 Rate Blood Pressure 96/53 110/64 (mmHg) O2 Sat by Pulse 95 Oximetry 01/27/17 01/27/17 01/27/17 11:04 12:50 14:20 Temperature 97.4 F Pulse Rate 90 Respiratory 16 22 24 Rate Blood Pressure 109/59 (mmHg) O2 Sat by Pulse 98 Oximetry 01/27/17 01/27/17 01/27/17 15:20 16:48 19:50 Temperature 97 F Pulse Rate 92 Respiratory 20 22 12 Rate Blood Pressure 92/58 (mmHg) O2 Sat by Pulse 94 Oximetry Oxygen Devices in Use Now: Nasal Cannula Appearance: Pt is lethargic, responds to voice, minimally verbal, sedated on morphine Eyes: No Scleral Icterus, PERRLA Ears/Nose/Mouth/Throat: NL Teeth, Lips, Gums, Mucous Membranes Moist Neck: NL Appearance and Movements; NL JVP, Trachea Midline Respiratory: Symmetrical Chest Expansion and Respiratory Effort, - - crackles at b/l bases Cardiovascular: NL Sounds; No Murmurs; No JVD, RRR Abdominal: - - mod tense ascites, abd diffusely tender, BS hypoactive, no rebound, no guarding Lymphatic: No Cervical Adenopathy Extremities: No Clubbing, Cyanosis, - - +1 pedal piting edema b/l Skin: - - ruptured blisters present on dorsal aspect of b/l feet Result Diagrams: 01/27/17 05:43 01/27/17 05:43 Additional Lab and Data: Lab Results 01/16/17 01/16/17 01/16/17 Range/Units 10:50 10:50 10:50 WBC 10.3 (3.5-10.8) 10^3/ul RBC 4.52 (4.0-5.4) 10^6/ul Hgb 12.9 L (14.0-18.0) g/dl Hct 39 L (42-52) % MCV 87 (80-94) fL MCH 29 (27-31) pg MCHC 33 (31-36) g/dl RDW 17 H (10.5-15) % Plt Count 179 (150-450) 10^3/ul MPV 11 H (7.4-10.4) um3 Neut % (Auto) 79.5 (38-83) % Lymph % (Auto) 8.4 L (25-47) % [place] % (Auto) 11.7 H (1-9) % Eos % (Auto) 0.2 (0-6) % Baso % (Auto) 0.2 (0-2) % Absolute Neuts (auto) 8.2 H (1.5-7.7) 10^3/ul Absolute Lymphs (auto) 0.9 L (1.0-4.8) 10^3/ul Absolute Monos (auto) 1.2 H (0-0.8) 10^3/ul Absolute Eos (auto) 0 (0-0.6) 10^3/ul Absolute Basos (auto) 0 (0-0.2) 10^3/ul Absolute Nucleated RBC 0.02 10^3/ul Nucleated RBC % 0.2 INR (Anticoag Therapy) (0.89-1.11) APTT (26.0-36.3) seconds Sodium 134 (133-145) mmol/L Potassium 3.6 (3.5-5.0) mmol/L Chloride 104 (101-111) mmol/L Carbon Dioxide 22 (22-32) mmol/L Anion Gap 8 (2-11) mmol/L BUN 77 H (6-24) mg/dL Creatinine 1.88 H (0.67-1.17) mg/dL Est GFR ( Amer) 44.3 (>60) Est GFR (Non-Af Amer) 34.4 (>60) BUN/Creatinine Ratio 41.0 H (8-20) Glucose 139 H (70-100) mg/dL Lactic Acid 1.8 (0.5-2.0) mmol/L Calcium 9.0 (8.6-10.3) mg/dL Magnesium 2.5 (1.9-2.7) mg/dL Total Bilirubin 2.70 H (0.2-1.0) mg/dL AST 81 H (13-39) U/L ALT 46 (7-52) U/L Alkaline Phosphatase 348 H (34-104) U/L Total Creatine Kinase 30 (10-223) U/L Troponin I 0.52 H* (<0.04) ng/mL C-Reactive Protein 293.70 H (< 5.00) mg/L B-Natriuretic Peptide ( - 100) pg/mL Total Protein 6.5 (6.4-8.9) g/dL Albumin 2.9 L (3.2-5.2) g/dL Globulin 3.6 (2-4) g/dL Albumin/Globulin Ratio 0.8 L (1-3) Amylase 57 (29-103) U/L Lipase 174 H (11.0-82.0) U/L 01/16/17 01/16/17 Range/Units 10:50 10:50 WBC (3.5-10.8) 10^3/ul RBC (4.0-5.4) 10^6/ul Hgb (14.0-18.0) g/dl Hct (42-52) % MCV (80-94) fL MCH (27-31) pg MCHC (31-36) g/dl RDW (10.5-15) % Plt Count (150-450) 10^3/ul MPV (7.4-10.4) um3 Neut % (Auto) (38-83) % Lymph % (Auto) (25-47) % [place] % (Auto) (1-9) % Eos % (Auto) (0-6) % Baso % (Auto) (0-2) % Absolute Neuts (auto) (1.5-7.7) 10^3/ul Absolute Lymphs (auto) (1.0-4.8) 10^3/ul Absolute Monos (auto) (0-0.8) 10^3/ul Absolute Eos (auto) (0-0.6) 10^3/ul Absolute Basos (auto) (0-0.2) 10^3/ul Absolute Nucleated RBC 10^3/ul Nucleated RBC % INR (Anticoag Therapy) 1.20 H (0.89-1.11) APTT 30.0 (26.0-36.3) seconds Sodium (133-145) mmol/L Potassium (3.5-5.0) mmol/L Chloride (101-111) mmol/L Carbon Dioxide (22-32) mmol/L Anion Gap (2-11) mmol/L BUN (6-24) mg/dL Creatinine (0.67-1.17) mg/dL Est GFR ( Amer) (>60) Est GFR (Non-Af Amer) (>60) BUN/Creatinine Ratio (8-20) Glucose (70-100) mg/dL Lactic Acid (0.5-2.0) mmol/L Calcium (8.6-10.3) mg/dL Magnesium (1.9-2.7) mg/dL Total Bilirubin (0.2-1.0) mg/dL AST (13-39) U/L ALT (7-52) U/L Alkaline Phosphatase (34-104) U/L Total Creatine Kinase (10-223) U/L Troponin I (<0.04) ng/mL C-Reactive Protein (< 5.00) mg/L B-Natriuretic Peptide 238 H ( - 100) pg/mL Total Protein (6.4-8.9) g/dL Albumin (3.2-5.2) g/dL Globulin (2-4) g/dL Albumin/Globulin Ratio (1-3) Amylase (29-103) U/L Lipase (11.0-82.0) U/L Microbiology and Other Data: Microbiology 01/16/17 17:20 Aerobic Blood Culture - Preliminary Blood Venous No Growth Day 1 Anaerobic Blood Culture - Preliminary No Growth Day 1 01/17/17 12:50 Stool Gross Appearance - Final Stool C. difficile DNA Amplification - Final 027 Presumptive NEGATIVE Toxigenic C.diff NEGATIVE Stool Lactoferrin - Final 01/17/17 12:50 Stool Gross Appearance - Final Stool Rotavirus Antigen - Final Negative Rotavirus 01/16/17 15:01 Urine Culture - Final Urine No Growth (<1,000 CFU/mL) 01/16/17 15:01 Nasal Screen MRSA (PCR)(BALDEMAR) - Final Nasal Mrsa Negative Assess/Plan/Problems-Billing Assessment: 81 yo man admitted with abdominal pain found with e/o cholecystitis on CT A/P however negative HIDA, normal WBC, and no fevers. Hospital stay notable for JACQUE now resolved, NSTEMI, and new dx of cirrhosis with abdominal ascites and portal vein thrombosis as well as duodenal ulcer found on EGD performed to evaluate for esophageal varices. Further complicated by dx of SBP after paracentesis and very elevated AFP without e/o HCC or other notable source Pt was pronounced tonight. Please see discharge summary dictation for details
[2017-01-27] MEDS ORDERED: CMC:Pantoprazole TAB (NF) 40 MG TAB PO SCH (21:00)
--- NOTE | 2017-01-28 02:32 | CONS ---
CONSULTATION REPORT: DATE OF CONSULT: 01/27/17 REFERRING PROVIDER: Debbie Phillips MD REASON FOR CONSULT: I was called by Dr. Phillips, the hospitalist taking care of Mr. Atwood, to render an opinion regarding his overall care and condition as well as the result of the CT scan of his abdomen and pelvis, which was done today, which showed concern for possible gangrenous cholecystitis. HISTORY OF PRESENT ILLNESS: His recent hospitalization and history is somewhat complicated and he has been seen in formal surgical consultation several weeks ago on his initial admission when he was noted to have gallstones and a thickened gallbladder wall but a HIDA scan, which was unremarkable and not felt to be acute cholecystitis. In addition, he has a new diagnosis of liver cirrhosis with ascites and portal vein thrombosis, which cause is not certain at this point. He is noted to have markedly elevated alpha-fetoprotein as well. More recently, he underwent a peritoneal aspiration, was noted to have a spontaneous bacterial peritonitis, has been started on antibiotics. His states that over the past several months prior to presentation, he had lost his appetite, has been losing weight, and developed abdominal distention. Since he has been here, he has been treated with IV antibiotics, and he has been seen by multiple consultants including GI, Cardiology, and Oncology as well as the Hospitalist Service. Apparently, he had developed some more abdominal pain and underwent a CT scan of the abdomen and pelvis today, which I did review. This once again shows cirrhotic liver with portal vein thrombosis with a large amount of ascites, concern for the fundal portion of the gallbladder, which is contact to the ascites that may have lost, which may signify necrosis; however, the gallbladder appears to be well distended and without significant change from his recent study almost 10 days ago. PHYSICAL EXAM: On exam today, he is afebrile and the heart rate about 90. His mental status is somewhat abounded due to receiving the morphine, but he is not verbal at this point. He is tachypneic. His abdomen is firm and distended consistent with tense ascites. He has generalized tenderness and appreciate no peritoneal irritation, however. No hernias noted. No bowel sounds present throughout. DIAGNOSTIC STUDIES/LAB DATA: Laboratory values done today include a white blood cell count of 19,000. This has been elevated in the mid high teens over the past week or so. INR today is 3.31. He is on Plavix, but no other anticoagulant other than subcutaneous heparin. BUN and creatinine were 46 and 1.06 and he had a total bilirubin of 2, AST and ALT of 20 and 22 with mild elevation of alkaline phosphatase. I did review the CT scan of the abdomen and pelvis done today. He does have some mild thickening of the gallbladder wall and significant hepatocellular disease as well as a large amount of ascites. ASSESSMENT AND PLAN: During my visit, Dr. Phillips as well as the patient and his , and 2 daughters were present. In review of his recent history and workup , he has significant liver disease, which seems to be worsening with increased cirrhosis and elevated INR, malnutrition, and portal vein thrombosis. He had undergone a HIDA scan almost 2 weeks ago, which showed filling of the gallbladder that was consistent with no acute calculus cholecystitis. At this point, I am not convinced that his more recent symptoms of abdominal discomfort today are secondary to the findings on the CT scan and the CT scan itself is not considerably different from that done from his last study in terms of the gallbladder, that certainly remains distended without evidence of perforation. Overall, I feel that he is not an operative candidate for any surgical intervention at this point and I discussed this with the patient and his family with Dr. Phillips today. Dr. Phillips went through his condition quite thoroughly with the family and answered their questions and at this point, I do not believe that the gallbladder is an issue and I do not believe that there were any surgical options that would help his condition, but more importantly we feel that he is not a surgical candidate and that he would not survive any type of emergent surgical intervention at this point with his multiple comorbidities. Thank you for the followup consultation and I will follow him with you, and I will be more than willing to talk with the family as they developed more questions and Dr. Phillips and Hospitalist Service discussed this further with them as well. CC: [facility] * [id number]/[facility] #: [id number] HAI
--- NOTE | 2017-01-28 11:50 | DS ---
SUMMARY: DATE OF ADMISSION: 01/16/17 DATE OF : 01/27/17 TIME OF : 8:01 p.m. PRIMARY CARE PROVIDER: Dr. Henriquez. CAUSE OF : 1. Acute renal failure. 2. Possible liver cancer. 3. Portal vein thrombosis. 4. Possibility of acute cholecystitis with gangrenous gallbladder. 5. Spontaneous bacterial peritonitis with cultures growing Enterococcus faecalis. 6. Possible underlying liver cirrhosis. CONSULTATIONS: During the hospital stay included Dr. Wan from Surgery and Dr. Bailey from Gastroenterology; Dr. Grey, the line supervisor; Dr. Kruger and Dr. Mallory from Oncology; and Dr. Hagan from Infectious Diseases. HOSPITALIZATION COURSE: Bernardino Atwood was an 81-year-old male with history of dyslipidemia and hypertension, who presented to the hospital complaining of right upper quadrant abdominal pain. His initial CAT scan showed possibility of cholecystitis, but he also had elevated troponin with a level that peaked at 7.5. The patient was diagnosed with non-ST elevation WI, transiently anticoagulated. Surgery was consulted with regards to acute cholecystitis, but subsequent HIDA scan did not show any other abnormalities. The patient was treated conservatively with Zosyn. He was noted to have ascites and new liver cirrhosis, as well as portal vein thrombosis on CT scan. Gastroenterology was consulted. The patient has paracentesis performed and 3.5 liters of fluid was removed on 01/23/17. The cytology from intraperitoneal fluid showed acute inflammation and it was negative for malignant cells. It was positive for Enterococcus faecalis in cultures and patient was subsequently diagnosed with spontaneous bacterial peritonitis and continued to be treated with Zosyn and vancomycin at that point. Further investigations in regards to possibility of liver cirrhosis yielded that the patient had no history of alcohol use or toxins. His tumor marker AFP, adithya- fetoprotein, was markedly elevated at 78, 682. Due to that, Dr. Kruger was consulted from Oncology. Dr. Kruger thought that most likely the patient has either liver or testicular cancer. A testicular ultrasound was performed and showed no abnormalities. CT of the chest also failed to yield any malignancy. An MRI of the liver showed a lobulated liver consistent with cirrhosis and an enlarged portal vein consistent with portal hypertension and portal vein thrombosis as well as ascites but no evidence of malignancy. The patient continued to be treated with diuretics, but his appetite continued to be poor and furthermore when we discussed it with the family, apparently patient had been losing weight and having increase in abdominal girth for approximately 2 to 3 months prior to his presentation to the ED. The patient's family was informed that the patient has liver failure, most likely liver malignancy. At his point, his appetite was very poor. He was malnourished and he was not a good candidate for chemotherapy. On 01/27/17, he was noted in the morning to be slightly lethargic, but otherwise with no acute abnormalities. His ascites was moderately tense, with his INR being over 3 at that point secondary to liver failure, paracentesis could not performed again. The patient was seen by the abovementioned consultants and Dr. Hagan recommended switching patient's antibiotics to ampicillin only. On the same day on 01/27/17 within 1 hour, the patient developed acute diffuse abdominal pain. The pain was severe and it needed to be treated with several doses of morphine. A repeat CT of abdomen and pelvis showed possibility of gangrenous gallbladder. Dr. Hernandez saw the patient for followup surgery consultation and deemed the patient not to be a candidate for surgery. There was also a question about patient's gallbladder looks any different from the original CT scan as per Dr. Hernandez. At this point, the patient continued to decline in his mental status and his systolic pressures were low. We had a long discussion with patient's family that he most likely is dying of liver failure and a CPR will be futile. At this point, the patient's family requested for the patient to be comfort care. The patient was placed on comfort care and do not resuscitate was signed. The patient was pronounced at 8:01 p.m. on . Family was present by the bedside and was not interested in autopsy. Please note that this is a short summary of patient's hospital stay, which is a long complicated hospitalization. Please refer to daily progress notes for further details. TIME SPENT: Approximately 50 minutes was present on patient's discharge. CC: Dr. Henriquez; Dr. Hernandez; Dr. Wan; Dr. Bailye; Dr. Young; Dr. Mallory ; Dr. Kruger; Dr. Watson [id number]/[facility] #: [id number] [facility]
== END 2017-01-27 22:00 | disposition expired ==
LOC: ED 10:32 → ICU 13:34 → MEDTELE 13:34 → UNDOADMIN 13:34 → MEDTELE 01-17 16:49
PROVIDERS: ADMIT Internal Medicine; ATTEND Internal Medicine
PROC: 0DB68ZX Excision of Stomach, Via Natural or Artificial Opening Endoscopic, Diagnostic (ICD-10-PCS; 2017-01-22)
PROC: 0W9G3ZZ Drainage of Peritoneal Cavity, Percutaneous Approach (ICD-10-PCS; principal; 2017-01-23)
DX: I21.4 Non-ST elevation (NSTEMI) myocardial infarction (principal); I81 Portal vein thrombosis; N17.9 Acute kidney failure, unspecified; K65.2 Spontaneous bacterial peritonitis; K80.00 Calculus of gallbladder with acute cholecystitis without obstruction; E46 Unspecified protein-calorie malnutrition; C22.9 Malignant neoplasm of liver, not specified as primary or secondary; K81.0 Acute cholecystitis; R18.8 Other ascites; I10 Essential (primary) hypertension; E78.5 Hyperlipidemia, unspecified; I25.10 Atherosclerotic heart disease of native coronary artery without angina pectoris; F17.210 Nicotine dependence, cigarettes, uncomplicated; K74.60 Unspecified cirrhosis of liver; R16.1 Splenomegaly, not elsewhere classified; I25.5 Ischemic cardiomyopathy; I44.7 Left bundle-branch block, unspecified; K26.9 Duodenal ulcer, unspecified as acute or chronic, without hemorrhage or perforation; R77.2 Abnormality of alphafetoprotein; B95.2 Enterococcus as the cause of diseases classified elsewhere; Z66 Do not resuscitate; Z68.24 Body mass index [BMI] 24.0-24.9, adult; K29.70 Gastritis, unspecified, without bleeding; K72.90 Hepatic failure, unspecified without coma; Z51.5 Encounter for palliative care; Z88.4 Allergy status to anesthetic agent; Z91.030 Bee allergy status; I25.2 Old myocardial infarction; Z87.442 Personal history of urinary calculi; Z98.61 Coronary angioplasty status; Z82.49 Family history of ischemic heart disease and other diseases of the circulatory system; Z84.81 Family history of carrier of genetic disease; Z80.9 Family history of malignant neoplasm, unspecified
CPT/HCPCS: 36415; 49083; 71020; 71250; 74020; 74177; 74183; 76705; 76870; 78226; 80048; 80053; 80076; 81003; 81015; 82042; 82105; 82150; 82272; 82550; 82570; 83605; 83615; 83630; 83690; 83735; 83880; 84100; 84157; 84300; 84484; 84520; 84702; 85025; 85610; 85730; 86140; 86803; 87040; 87045; 87046; 87077; 87086; 87186; 87205; 87340; 87425; 87449; 87493; 87641; 87899; 88112; 89051; 93005; 93306; 99232; 99254; 99406; A9270-GY; A9537; A9581; J0290; J0696; J1644; J1650; J2250; J2270; J2405; J2543; J3370; Q9967